=== PATIENT | female | born 1955 | race Hispanic/Latino ===

== ENCOUNTER 2018-12-02 16:13 | Inpatient (IN) | payer SELFPAY ==
[2018-12-02] MEDS ORDERED: NA CHLORIDE 0.9% 1,000 ML ONE (17:07)
[2018-12-02] MEDS ORDERED: ONDANSETRON 4 MG/2 ML VIAL ONE ×2 (17:07→17:53)
[2018-12-02] MEDS ORDERED: MEPERIDINE HCL 25 MG/0.5 ML ONE (17:07)
[2018-12-02 17:10] LABS: Basophils % 0.4 % (0-1.3); Hematocrit 44.3 % (36.0-45.0); Lymphocytes % 16.2 % (15.3-44.8); MPV 9.4 fL (7.6-11.3); RBC Red Blood Cell Count 5.11 M/uL (3.86-4.86)
[2018-12-02 17:26] LABS: Albumin 3.6 g/dL (3.4-5.0); Bilirubin Direct 0.3 mg/dL (0-0.2); Bilirubin Total 0.6 mg/dL (0.2-1.0); Protein, Total 8.8 g/dL (6.4-8.2)
--- NOTE | 2018-12-02 17:36 | RAD REPORT ---
EXAM DESCRIPTION: US - Abdomen Exam Limited - 12/02/2018 5:17 pm CLINICAL HISTORY: Abdominal pain COMPARISON: None. FINDINGS: Several small gallstones are clustered near the neck of the gallbladder. These appear to b e mobile stones. There is no wall thickening or pericholecystic fluid. No common duct stone or biliary tree dilatation identified. IMPRESSION: Multi stone cholelithiasis. No sonographic findings for acute cholecystitis.
[2018-12-02] MEDS ORDERED: CEFOXITIN/SWI 1gm 1 GM/10 ML SYR IVP ONE (17:45)
[2018-12-02] MEDS ORDERED: FENTANYL CITR 100 MCG/2 ML ONE (17:53)
[2018-12-02] MEDS ORDERED: METRONIDAZOLE 500mg IVPB 500 MG/100 ML BAG IV ONE (17:53)
[2018-12-02] MEDS ORDERED: CEFOXITIN/SWI 1gm 1 GM/10 ML SYR ONE (17:54)
--- NOTE | 2018-12-02 18:12 | EDPHYS ---
Physician Documentation [facility] Name: Danisha Dobbs Age: 63 yrs Sex: Female : 1955 Arrival Date: 12/02/2018 Time: 16:14 Bed 20 Private MD: ED Physician Jason Reddy HPI: 12/02 16:27 This 63 yrs old Female presents to ER via Ambulatory with complaints of jr8 Abdominal Pain, Back Pain, Vomiting. 16:27 The patient presents with abdominal pain in the epigastric area, in the right upper jr8 quadrant. Onset: The symptoms/episode began/occurred suddenly, 3 day(s) ago. The symptoms radiate to right back, the right shoulder. Associated signs and symptoms: Pertinent positives: nausea, vomiting, and diarrhea. The symptoms are described as stabbing. Modifying factors: The symptoms are alleviated by nothing, the symptoms are aggravated by food. Severity of pain: At its worst the pain was moderate in the emergency department the pain is unchanged. The patient has experienced similar episodes in the past, a few times. The patient has not recently seen a physician. Patient stated that she has been dealing with this for some time but has become much worse over the past few days . Historical: - Allergies: 16:17 Codeine; sv - Home Meds: 19:04 None [Active]; em - PMHx: 19:04 None; em - PSHx: 16:17 Appendectomy; right ovary removed; ; right arm surgery; left knee surgery; sv - Immunization history:: Adult Immunizations up to date. - Social history:: Smoking status: Patient uses tobacco products, denies chronic smoking, but will smoke occasionally. - Ebola Screening: : Patient negative for fever greater than or equal to 101.5 degrees Fahrenheit, and additional compatible Ebola Virus Disease symptoms Patient denies exposure to infectious person Patient denies travel to an Ebola-affected area in the 21 days before illness onset No symptoms or risks identified at this time. ROS: 16:27 Constitutional: Negative for fever, chills, and weight loss. jr8 16:27 Abdomen/GI: Positive for abdominal pain, nausea, vomiting, and diarrhea, Negative for abdominal distension, anorexia, dysphagia, hematemesis, black/tarry stool, rectal pain, rectal bleeding, bowel incontinence, flatulence. 16:27 All other systems are negative. Exam: 16:27 Eyes: Pupils equal round and reactive to light, extra-ocular motions intact. Lids and jr8 lashes normal. Conjunctiva and sclera are non-icteric and not injected. Cornea within normal limits. Periorbital areas with no swelling, redness, or edema. ENT: Nares patent. No nasal discharge, no septal abnormalities noted. Tympanic membranes are normal and external auditory canals are clear. Oropharynx with no redness, swelling, or masses, exudates, or evidence of obstruction, uvula midline. Mucous membranes moist. Neck: Trachea midline, no thyromegaly or masses palpated, and no cervical lymphadenopathy. Supple, full range of motion without nuchal rigidity, or vertebral point tenderness. No Meningismus. Cardiovascular: Regular rate and rhythm with a normal S1 and S2. No gallops, murmurs, or rubs. Normal PMI, no JVD. No pulse deficits. Respiratory: Lungs have equal breath sounds bilaterally, clear to auscultation and percussion. No rales, rhonchi or wheezes noted. No increased work of breathing, no retractions or nasal flaring. Back: No spinal tenderness. No costovertebral tenderness. Full range of motion. Skin: Warm, dry with normal turgor. Normal color with no rashes, no lesions, and no evidence of cellulitis. MS/ Extremity: Pulses equal, no cyanosis. Neurovascular intact. Full, normal range of motion. Neuro: Awake and alert, GCS 15, oriented to person, place, time, and situation. Cranial nerves II-XII grossly intact. Motor strength 5/5 in all extremities. Sensory grossly intact. Cerebellar exam normal. Normal gait. 16:27 Abdomen/GI: Inspection: obese Bowel sounds: active, all quadrants, Palpation: soft, in all quadrants, moderate abdominal tenderness, in the epigastric area and right upper quadrant, mass, is not appreciated, rebound tenderness, is not appreciated, voluntary guarding, is not appreciated, involuntary guarding, is not appreciated, no appreciated organomegaly, Indicators: McBurney's point is not tender, Willis's sign is positive, Rovsing's sign is negative, Liver: tenderness, is not appreciated. Vital Signs: 16:17 BP 91 / 61; Pulse 65; Resp 22; Temp 97.4; Pulse Ox 100% ; Weight 81.65 kg; Height 5 ft. sv 3 in. (160.02 cm); Pain 10/10; 16:45 BP 121 / 83; Pulse 62; Resp 20 S; Pulse Ox 100% on R/A; Pain 9/10; em 18:16 BP 123 / 62; Pulse 67; Resp 18 S; Pulse Ox 100% on R/A; Pain 7/10; em 19:19 BP 139 / 54; Pulse 53; Resp 18; Pulse Ox 99% on R/A; Pain 0/10; lc1 20:00 BP 127 / 58; Pulse 58; Resp 18; Pulse Ox 100% on R/A; lc1 16:17 Body Mass Index 31.89 (81.65 kg, 160.02 cm) sv MDM: 16:19 Patient medically screened. jr8 18:02 Data reviewed: vital signs, nurses notes, lab test result(s), radiologic studies, jr8 ultrasound. Data interpreted: Pulse oximetry: on room air is 100 %. Interpretation: normal. Counseling: I had a detailed discussion with the patient and/or guardian regarding: the historical points, exam findings, and any diagnostic results supporting the discharge/admit diagnosis, lab results, radiology results, the need for further work-up and treatment in the hospital. Physician consultation: Jeronimo Nova DO was called at 18:10, was contacted at 18:10, regarding admission, to the medical/surgical unit. consult, patient's condition, and will see patient. ED course: Dr. Rausch consulted and will see patient as consult. Ok with keeping patient here for MRCP since it is low likely gerber that patient has CBD obstruction. . 12/02 16:19 Order name: Basic Metabolic Panel; Complete Time: 17:27 12/02 16:19 Order name: CBC with Diff; Complete Time: 17:27 12/02 16:19 Order name: Creatinine for Radiology; Complete Time: 17:27 12/02 16:19 Order name: Hepatic Function; Complete Time: 17:27 12/02 16:19 Order name: Lipase; Complete Time: 17:12/02 19:20 Order name: Urine Dipstick--Ancillary (enter results) 2 12/02 16:27 Order name: US Abdomen Limited; Complete Time: 17:38 12/02 19:36 Order name: Urine Dipstick-Ancillary; Complete Time: 19:48 [facility] 12/02 16:19 Order name: IV Saline Lock; Complete Time: 17:13 [facility] 12/02 16:19 Order name: Labs collected and sent; Complete Time: 17:13 [facility] 12/02 16:19 Order name: Urine Dipstick-Ancillary (obtain specimen); Complete Time: 19:19 [facility] Administered Medications: 17:00 Drug: NS 0.9% 1000 ml Route: IV; Rate: 1000 ml; Site: right antecubital; ss 18:57 Follow up: IV Status: Completed infusion; IV Intake: 1000ml em 17:00 Drug: Zofran 4 mg Route: IVP; Site: right antecubital; ss 17:31 Follow up: Response: No adverse reaction; Nausea unchanged em 17:04 Drug: Demerol 25 mg Route: IVP; Site: right antecubital; ss 17:31 Follow up: Response: No adverse reaction; Pain is unchanged, physician notified em 17:06 Not Given (Other Intervention Used): Zofran 4 mg PO once ss 17:42 Drug: Zofran 4 mg Route: IVP; Site: right antecubital; em 18:18 Follow up: Response: No adverse reaction; Nausea is decreased em 17:44 Drug: fentaNYL (PF) 50 mcg Route: IVP; Site: right antecubital; ss 18:18 Follow up: Response: No adverse reaction; Pain is decreased em 17:46 Drug: Flagyl 500 mg Volume: 100 ml; Route: IVPB; Rate: 200 ml/hr; Infused Over: 30 em mins; Site: right antecubital; 18:57 Follow up: IV Status: Completed infusion; IV Intake: 200ml em 18:35 Drug: Mefoxin 1 grams {Note: given in 10 mL over 3 minutes per pharmacy protocol/ ss availability.} Route: IVPB; Infused Over: 30 mins; Site: right antecubital; 18:36 Follow up: IV Status: Completed infusion ss Disposition: 12/03 07:24 Co-signature as Attending Physician, Jason CHAVEZ I agree with the assessment and joanie plan of care. Disposition: 12/02/18 18:11 Hospitalization ordered by Jeronimo Nova for Observation. Preliminary diagnosis are Cholelithiasis, Choledocholithiasis . - Bed requested for Telemetry/MedSurg (observation). - Status is Observation. lc1 - Condition is Stable. - Problem is new. - Symptoms have improved. UTI on Admission? No Signatures: Dispatcher [employer] Rani Nick, RN RN Jason Antoine MD MD cha Munoz, Ilan, TAG WRITER TAG WRITER em Patrica Harrison RN RN ss Calhoun, Lisa lc1 Ankit Pepper, PA PA jr8 Krista Weaver RN RN cg Corrections: (The following items were deleted from the chart) 12/02 18:45 18:11 Hospitalization Ordered by [facility] for Inpatient Admission. Preliminary jr8 diagnosis is Cholelithiasis; Choledocholithiasis . Bed requested for Telemetry/MedSurg (Inpatient). Status is Inpatient Admission. Condition is Stable. Problem is new. Symptoms have improved. UTI on Admission? No. jr8 19:32 18:45 12/02/2018 18:11 Hospitalization Ordered by [facility] for Observation. cg Preliminary diagnosis is Cholelithiasis; Choledocholithiasis . Bed requested for Telemetry/MedSurg (observation). Status is Observation. Condition is Stable. Problem is new. Symptoms have improved. UTI on Admission? No. jr8 20:42 19:32 12/02/2018 18:11 Hospitalization Ordered by [facility] for Observation. lc1 Preliminary diagnosis is Cholelithiasis; Choledocholithiasis . Bed requested for Telemetry/MedSurg (observation). Status is Observation. Condition is Stable. Problem is new. Symptoms have improved. UTI on Admission? No. cg
--- NOTE | 2018-12-02 18:12 | ER ---
Nurse's Notes [facility] Name: Danisha Dobbs Age: 63 yrs Sex: Female : 1955 Arrival Date: 12/02/2018 Time: 16:14 Bed 20 Private MD: Diagnosis: Cholelithiasis;Choledocholithiasis Presentation: 12/02 16:15 Presenting complaint: Patient states: abd pain that radiates to the back, n/v started sv this morning. Transition of care: patient was not received from another setting of care. Onset of symptoms was December 02, 2018. Risk Assessment: Do you want to hurt yourself or someone else? Patient reports no desire to harm self or others. Care prior to arrival: None. 16:15 Method Of Arrival: Ambulatory sv 16:15 Acuity: KIRAN 3 sv 16:45 Initial Sepsis Screen: Does the patient meet any 2 criteria? No. Patient's initial em sepsis screen is negative. Does the patient have a suspected source of infection? No. Patient's initial sepsis screen is negative. Historical: - Allergies: 16:17 Codeine; sv - Home Meds: 19:04 None [Active]; em - PMHx: 19:04 None; em - PSHx: 16:17 Appendectomy; right ovary removed; ; right arm surgery; left knee surgery; sv - Immunization history:: Adult Immunizations up to date. - Social history:: Smoking status: Patient uses tobacco products, denies chronic smoking, but will smoke occasionally. - Ebola Screening: : Patient negative for fever greater than or equal to 101.5 degrees Fahrenheit, and additional compatible Ebola Virus Disease symptoms Patient denies exposure to infectious person Patient denies travel to an Ebola-affected area in the 21 days before illness onset No symptoms or risks identified at this time. Screenin:45 Abuse screen: Denies threats or abuse. em 16:45 Nutritional screening: No deficits noted. Tuberculosis screening: No symptoms or risk em factors identified. Fall Risk None identified. Assessment: 16:15 General: Appears in no apparent distress. uncomfortable, Behavior is cooperative, sv restless. Pain: Complains of pain in abdomen Pain radiates to back Pain currently is 10 out of 10 on a pain scale. Neuro: Level of Consciousness is awake, alert, obeys commands, Oriented to person, place, time, situation, Gait is steady. Respiratory: Respiratory effort is even, unlabored, Respiratory pattern is regular, symmetrical. GI: Reports diarrhea, nausea, vomiting. Derm: Skin is pink, warm \T\ dry. 16:45 General: Appears in no apparent distress. uncomfortable, Behavior is cooperative, em restless, Denies fever. Pain: Complains of pain in right upper quadrant and epigastric area Pain currently is 9 out of 10 on a pain scale. Neuro: Level of Consciousness is awake, alert, obeys commands, Oriented to person, place, time, situation. Cardiovascular: Denies chest pain, shortness of breath, Capillary refill < 3 seconds Patient's skin is warm and dry. Respiratory: Airway is patent Respiratory effort is even, unlabored, Respiratory pattern is regular, symmetrical. GI: Abdomen is flat, Bowel sounds present X 4 quads. Abd is soft X 4 quads Abdomen is tender to palpation in epigastric area, right upper quadrant and left upper quadrant Reports diarrhea, nausea, vomiting. : Reports burning with urination, urinary frequency. Derm: Skin is intact, is healthy with good turgor, Skin is pink, warm \T\ dry. Musculoskeletal: Capillary refill < 3 seconds, Range of motion: intact in all extremities. 17:30 Reassessment: reports medication has not helped with symptoms, provider notified, new em medication orders received. 18:20 Reassessment: Patient appears in no apparent distress at this time. Patient and/or em family updated on plan of care and expected duration. Pain level reassessed. Patient is alert, oriented x 3, equal unlabored respirations, skin warm/dry/pink. rates pain 7/10, appears comfortable, family at bedside Patient states feeling better. 18:41 Reassessment: Dr. Nova at bedside discussing POC. em 18:55 Reassessment: pt ambulated to restroom with steady gait, obtained UA specimen. em 19:22 Reassessment: Patient and/or family updated on plan of care and expected duration. Pain lc1 level reassessed. Patient states feeling better. Vital Signs: 16:17 BP 91 / 61; Pulse 65; Resp 22; Temp 97.4; Pulse Ox 100% ; Weight 81.65 kg; Height 5 ft. sv 3 in. (160.02 cm); Pain 10/10; 16:45 BP 121 / 83; Pulse 62; Resp 20 S; Pulse Ox 100% on R/A; Pain 9/10; em 18:16 BP 123 / 62; Pulse 67; Resp 18 S; Pulse Ox 100% on R/A; Pain 7/10; em 19:19 BP 139 / 54; Pulse 53; Resp 18; Pulse Ox 99% on R/A; Pain 0/10; lc1 20:00 BP 127 / 58; Pulse 58; Resp 18; Pulse Ox 100% on R/A; lc1 16:17 Body Mass Index 31.89 (81.65 kg, 160.02 cm) sv ED Course: 16:14 Patient arrived in ED. as 16:16 Triage completed. sv 16:18 Arm band placed on Patient placed in an exam room, on a stretcher. sv 16:19 Ankit Pepper PA is PHCP. jr8 16:19 Jason Reddy MD is Attending Physician. jr8 16:45 Patient has correct armband on for positive identification. Placed in gown. Bed in low em position. Call light in reach. Adult w/ patient. Pulse ox on. NIBP on. 16:49 Ilan Mariee LVN is Primary Nurse. em 17:15 Ultrasound completed. Patient tolerated well. sg3 17:18 US Abdomen Limited In Process Unspecified. EDMS 18:11 Jeronimo Nova DO is Hospitalizing Provider. jr8 19:18 Resting quietly. Awaiting bed assignment. lc1 19:21 Inserted saline lock: 20 gauge in right antecubital area, using aseptic technique. lc1 19:51 No provider procedures requiring assistance completed. Patient admitted, IV remains in lc1 place. 20:06 Urine Dipstick--Ancillary (enter results) Sent. lc1 Administered Medications: 17:00 Drug: NS 0.9% 1000 ml Route: IV; Rate: 1000 ml; Site: right antecubital; ss 18:57 Follow up: IV Status: Completed infusion; IV Intake: 1000ml em 17:00 Drug: Zofran 4 mg Route: IVP; Site: right antecubital; ss 17:31 Follow up: Response: No adverse reaction; Nausea unchanged em 17:04 Drug: Demerol 25 mg Route: IVP; Site: right antecubital; ss 17:31 Follow up: Response: No adverse reaction; Pain is unchanged, physician notified em 17:06 Not Given (Other Intervention Used): Zofran 4 mg PO once ss 17:42 Drug: Zofran 4 mg Route: IVP; Site: right antecubital; em 18:18 Follow up: Response: No adverse reaction; Nausea is decreased em 17:44 Drug: fentaNYL (PF) 50 mcg Route: IVP; Site: right antecubital; ss 18:18 Follow up: Response: No adverse reaction; Pain is decreased em 17:46 Drug: Flagyl 500 mg Volume: 100 ml; Route: IVPB; Rate: 200 ml/hr; Infused Over: 30 em mins; Site: right antecubital; 18:57 Follow up: IV Status: Completed infusion; IV Intake: 200ml em 18:35 Drug: Mefoxin 1 grams {Note: given in 10 mL over 3 minutes per pharmacy protocol/ ss availability.} Route: IVPB; Infused Over: 30 mins; Site: right antecubital; 18:36 Follow up: IV Status: Completed infusion ss Intake: 18:57 IV: 200ml; Total: 200ml. em 18:57 IV: 1000ml; Total: 1200ml. em Outcome: 18:11 Decision to Hospitalize by Provider. [facility] 19:52 Condition: good [facility] 20:03 Instructed on the need for admit. [facility] 20:36 Admitted to Med/surg accompanied by nurse, via wheelchair, room 213, Report called to [facility] Carla Jean 20:42 Patient left the ED. [facility] Signatures: Dispatcher [employer] Rani Nick, RN TABATHA Ilan Mariee, MORTGAGE ADVISOR MORTGAGE ADVISOR em Devora Rausch [place], RN RN Perla Boyce [facility] Ankit Pepper PA PA jr8 Haley Robledo sg3 Corrections: (The following items were deleted from the chart) 16:19 16:17 Pulse 65bpm; Resp 22bpm; Pulse Ox 100%; Temp 97.4F; 81.65 kg; Height 5 ft. 3 in.; sv BMI: 31.8; Pain 10/10; sv 20:05 19:51 Admitted to Med/surg [place] [id number]
--- NOTE | 2018-12-02 19:03 | P.HP ---
Certification for Inpatient Patient admitted to: Observation With expected LOS: <2 Midnights Patient will require the following post-hospital care: None Practitioner: I am a practitioner with admitting privileges, knowledge of patient current condition, hospital course, and medical plan of care. Services: Services provided to patient in accordance with Admission requirements found in Title 42 Section 412.3 of the Code of Federal Regulations Patient History Date of Service: 12/02/18 Primary Care Provider: None Reason for admission: Right upper quadrant abdominal pain History of Present Illness: 63-year-old female presented to the emergency room with increasing right upper quadrant abdominal pain. Patient reports right upper quadrant pain for several months. She thought this was GERD related. She has been taking over the counter medication without relief. Today she had more pain to the right upper quadrant. He was severe. It was associated with some nausea. She denied any fever, chills, shortness of breath or chest pain. She came to the ER for further evaluation. In the ER she was evaluated. White count elevated at 12.3, hemoglobin 14.6. Platelet count of 335. Sodium 140, potassium 4.0. BUN of 14, creatinine 0.84 with a GFR 65. Glucose 111. Total bilirubin within normal range. Lipase within normal range. AST slightly elevated at 99. ALT normal at 49. Abdominal ultrasound showed gallbladder with multiple stones. No common bile duct stone or common bile duct dilation. Patient was admitted for further evaluation and treatment. ER provider spoke with surgery who agrees with plan. When I saw the patient ER, pain seems to be better controlled. Patient stable this time. Home medications list reviewed: Yes - Past Medical/Surgical History Diabetic: No Past Medical History: Patient denies medical history -: Appendectomy with right oophorectomy -: Left knee surgery -: Right shoulder surgery -: Ectopic Psychosocial/ Personal History: Patient . Lives at home. - Family History Family History: Reviewed- Non-Contributory - Social History Smoking Status: Never smoker Alcohol use: No CD- Drugs: No Caffeine use: Yes Place of Residence: Home Review of Systems General: As per HPI Eyes: Unremarkable ENT: Unremarkable Respiratory: Unremarkable Cardiovascular: Unremarkable Gastrointestinal: Nausea, Vomiting, Abdominal Pain, As per HPI Genitourinary: Unremarkable Musculoskeletal: Unremarkable Integumentary: Unremarkable Neurological: Unremarkable Lymphatics: Unremarkable Physical Examination - Physical Exam General: Alert, In no apparent distress, Oriented x3, Cooperative HEENT: Atraumatic, Normocephalic, PERRLA, Mucous membr. moist/pink Neck: Supple, No Thyromegaly Respiratory: Clear to auscultation bilaterally, Normal air movement Cardiovascular: Normal pulses, Regular rate/rhythm Gastrointestinal: Normal bowel sounds, Soft and benign, Non-distended, No masses , No rebound, No guarding, Tenderness (Minimal pain to the right upper quadrant) Musculoskeletal: No erythema, No tenderness, No warmth Integumentary: No tenderness/swelling, No erythema, No warmth, No cyanosis Neurological: Normal speech, Normal strength at 5/5 x4 extr, Normal tone, Normal affect - Studies Laboratory Data (last 24 hrs) 12/02/18 16:55: Creatinine 0.84 12/02/18 16:55: WBC 12.3 H, Hgb 14.6, Hct 44.3, Plt Count 335 12/02/18 16:55: Sodium 140, Potassium 4.0, BUN 14, Creatinine 0.88, Glucose 111 H, Total Bilirubin 0.6, AST 99 H, ALT 49, Alkaline Phosphatase 133 H, Lipase 194 Assessment and Plan - Plan Impression: Acute on chronic cholecystitis with cholelithiasis Plan: Patient will be admitted for further evaluation and treatment. ER provider discussed case with surgery. Will continue with IV fluids, antibiotics-Cipro and Flagyl. Total bilirubin within normal range. AST slightly elevated at 99. Abdominal ultrasound showed multiple stones within the gallbladder. Common bile duct not dilated. No stone identified to common bile duct. Will obtain MRCP to rule out choledocholithiasis. If MRCP unremarkable, surgical intervention will be planned. If MRCP positive then transfer to higher level care center for ERCP will be arranged. Will keep the patient NPO at this time. Will continue with Lovenox for DVT prophylaxis. Will provide medication for nausea and pain. Discharge Plan: Home Plan to discharge in: 48 Hours - Advance Directives Does patient have a Living Will: No Does patient have a Durable POA for Healthcare: No - Code Status/Comfort Care Code Status Assessed: Yes (Patient is full code) Time Spent Managing Pts Care (In Minutes): 55
[2018-12-02 19:34] LABS: Urine Blood TRACE (NEG); Urine Glucose NEGATIVE (NEG); Urine Protein NEGATIVE (NEG); Urine Specific Gravity 1.015 (1.005-1.030); Urine pH 8.5 (5.0-7.0)
[2018-12-02] MEDS ORDERED: ACETAMINOPHEN 650MG/RECT SUPP RECT PRN (20:20)
[2018-12-02] MEDS ORDERED: ACETAMINOPHEN 500 MG TAB PO PRN (20:20)
[2018-12-02] MEDS: NA CHLORIDE 0.9% 1,000 ML IV SCH (20:56)
[2018-12-02] MEDS: CIPROFLOXACIN 400mg IV 400 MG/200 ML BAG IV SCH (20:57)
[2018-12-02] MEDS: FAMOTIDINE 20 MG/2 ML VIAL IV SCH (20:57)
[2018-12-02] MEDS: ONDANSETRON 4 MG/2 ML VIAL IV PRN (20:57)
[2018-12-02 20:59] LABS: Urine Appearance CLEAR; Urine Bilirubin NEGATIVE (NEG); Urine Blood TRACE (NEG); Urine Color YELLOW; Urine Glucose NEGATIVE (NEG); Urine Protein NEGATIVE (NEG); Urine Specific Gravity 1.015 (1.005-1.030); Urine Urobilinogen 0.2 mg/dL (0.2-1.0)
[2018-12-02 21:04] LABS: Urine Microscopic Reflex ORDER UMIC
[2018-12-02] MEDS: MORPHINE 2 MG/ML SYR IV PRN (21:19)
[2018-12-02 21:21] LABS: Urine Bacteria <20 /HPF (<20); Urine Culture Reflex Order NOT NEEDED
[2018-12-03] MEDS: METRONIDAZOLE 500mg IVPB 500 MG/100 ML BAG IV SCH ×3 (00:46→17:24)
[2018-12-03 06:34] LABS: Basophils % 0.4 % (0-1.3); Hematocrit 39.8 % (36.0-45.0); Lymphocytes % 11.7 % (15.3-44.8); MPV 9.2 fL (7.6-11.3); RBC Red Blood Cell Count 4.57 M/uL (3.86-4.86)
[2018-12-03 07:04] LABS: Albumin 3.1 g/dL (3.4-5.0); Bilirubin Total 1.4 mg/dL (0.2-1.0); Magnesium 2.2 mg/dL (1.8-2.4); Potassium 4.4 mmol/L (3.5-5.1); Protein, Total 7.5 g/dL (6.4-8.2)
[2018-12-03] MEDS: MORPHINE 2 MG/ML SYR IV PRN ×3 (08:08→17:24)
[2018-12-03] MEDS: FAMOTIDINE 20 MG/2 ML VIAL IV SCH ×2 (08:08→20:00)
[2018-12-03] MEDS: ONDANSETRON 4 MG/2 ML VIAL IV PRN ×3 (08:08→19:51)
[2018-12-03] MEDS: CIPROFLOXACIN 400mg IV 400 MG/200 ML BAG IV SCH ×2 (08:09→20:00)
--- NOTE | 2018-12-03 08:31 | RAD REPORT ---
EXAM DESCRIPTION: MRI - Cholangiogram - 12/03/2018 7:38 am CLINICAL HISTORY: Abdominal pain, epigastric pain, cholelithiasis COMPARISON: Gallbladder ultrasound December 02 TECHNIQUE: Axial and coronal heavily T2 weighted sequences were obtained. Coronal T2 HASTE fat satur ation static and coronal multiplane reconstruction imaging generated and reviewed. Horizontal and bhavana tical axis rotational views obtained using maximum intensity projection (MIP) protocol. FINDINGS: Well filled gallbladder is seen. The known gallstones are identified layering in the depen dent portion of the gallbladder. No pericholecystic fluid or edema seen. Wall does not appear thicken ed or edematous. Pancreatic duct is well visualized. No pancreatic duct stone stricture or mass. No intrahepatic biliary tree dilatation. Extrahepatic biliary tree is 8- 9 mm which is slightly enlar ged. No stricture or mass identified. There is smooth tapering into the head of the pancreas near the sphincter. On 1 of the sequences there is a questionable 2 millimeter filling defect near the sphinc ter. This is not supported on other sequences. This is potentially a crossing vessel or volume averag ing with the mucosal folds of the duodenum. Correlation is needed with any clinical or laboratory fin dings for biliary tree obstruction IMPRESSION: Extrahepatic biliary tree is minimally dilated at 8-9 mm with no intrinsic stricture or mass. There is a questionable 2 millimeter duct stone near the ampulla. This is seen on only 1 of the seque nces. Correlation is needed with any clinical or laboratory findings for biliary obstruction.
[2018-12-03] MEDS ORDERED: ENOXAPARIN 40 MG/0.4 ML SQ SCH (09:00)
[2018-12-03] MEDS: NA CHLORIDE 0.9% 1,000 ML IV SCH ×2 (13:09→16:20)
--- NOTE | 2018-12-03 13:16 | DS ---
Date of Service: 12/03/2018 Consultants: Dr. Rausch with General Surgery. Procedures: None. Discharge Diagnoses: 1. Lgskx-xb-kulfglc cholecystitis with cholelithiasis. 2. Obesity. BMI 31. 3. Hyperbilirubinemia. 4. Elevated liver enzymes. 5. Choledocholithiasis. Hospital Course: Patient is a 63-year-old female with no significant past medical history other than obesity and chronic cholelithiasis who comes in with abdominal pain. Patient had elevated white count with neutrophilia. Her total bilirubin was normal. Liver enzymes were minimally elevated with AST at 99. Abdominal ultrasound showed cholelithiasis. No sonographic evidence for her acute cholecystitis. There is no common duct stone or biliary tree dilatation identified. The patient was kept n.p.o., started on IV fluids. Dr. Rausch with Surgery was consulted. She was started on IV antibiotics as well. MRCP was done to rule out stone. MRCP was positive for stone near the ampulla. No GI coverage was available. Therefore, the patient will need to be transferred for an ERCP. The patient will continue to be n.p.o. She did have improvement in her symptoms. Her white blood cell count normalized, however, her total bilirubin and liver enzymes have become further elevated. The patient was then referred to [facility] for transfer. Total time spent transferring the patient was 43 minutes. Physical Examination: General: Awake, alert, oriented x3. Obese female in mild distress. CV: S1, S2. No murmurs. Respiratory: Moving air well bilaterally. No wheezing. Gastrointestinal: Abdomen is soft, nontender, nondistended. Positive bowel sounds. Extremities: No clubbing, cyanosis, or edema. Neurologic: Nonfocal. SA/MODL Voice ID: [id number] Report ID: [id number] [facility]Kim
[2018-12-04] MEDS: METRONIDAZOLE 500mg IVPB 500 MG/100 ML BAG IV SCH (00:08)
[2018-12-04] MEDS: MORPHINE 2 MG/ML SYR IV PRN (01:29)
[2018-12-04] MEDS: ONDANSETRON 4 MG/2 ML VIAL IV PRN (01:29)
[2018-12-04] MEDS: NA CHLORIDE 0.9% 1,000 ML IV SCH (02:56)
== END 2018-12-04 04:40 | disposition short-term general hospital (02) | DRG 446 ==
LOC: ER 16:13 → ERHOLD 18:51 → 2ND 20:05 → OBSVTOIN 12-03 11:34
PROVIDERS: ADMIT Family Medicine; ATTEND Family Medicine
DX: K80.46 Calculus of bile duct with acute and chronic cholecystitis without obstruction (principal); F17.210 Nicotine dependence, cigarettes, uncomplicated; Z88.5 Allergy status to narcotic agent; E66.9 Obesity, unspecified; Z68.31 Body mass index [BMI] 31.0-31.9, adult
CPT/HCPCS: 36415; 74181; 76705; 80048; 80053; 80076; 81003; 81015; 82962; 83690; 83735; 85025; 96361; 96365; 96375; 99285; G0378; J0744; J1650; J2175; J2270; J2405; J3010; J7030

== ENCOUNTER 2019-06-01 15:02 | Emergency (ER) | payer SELFPAY ==
--- OUTSIDE RECORDS SUMMARY | 2019-06-01 15:04 | XMS REPORT ---
:1955 Author Organization [facility] Address [address] [place] [address] Care Team Providers Name Role Phone SONY REES Unavailable Unavailable Problems This patient has no known problems. Allergies, Adverse Reactions, Alerts This patient has no known allergies or adverse reactions. Medications This patient has no known medications. Results Test Description Test Time Test Comments Text Results Atomic Results Result Comments TISSUE EXAM 2018-12-10 09:23:00 Surgical Pathology Report Case: [id number] Authorizing Provider: Kristi Caballero MD Collected: 12/06/2018 1605 Ordering Location: [facility] PERIOPERATIVE Received: 12/07/2018 0848 SERVICES Pathologist: Seferino Louis MD Specimen: Gallbladder A. GALLBLADDER, CHOLECYSTECTOMY: - CHRONIC CHOLECYSTITIS WITH CHOLELITHIASIS - NEGATIVE FOR DYSPLASIA OR MALIGNANCY Signing Pathologist Direct Phone Line: [phone] signed by Seferino Louis MD on 12/10/2018 at 9:23 [id number] and postop diagnosis: choledocholithiasisGallbladderReceived fresh labeled with the patient's name, accession number and "gallbladder" is an intact gallbladder within a laparoscopic bag measuring 6.6 x 3 x 1.5 cm. The cystic duct is clipped. The serosa is lavender-pink and smooth. The hepatic bed is inked blue, the specimen is opened to reveal multiple (greater than 20) yellow irregular choleliths ranging 0.2-0.4 cm. The mucosa is brooke-pink, trabeculated and displays cholesterolosis. A cystic duct lymph node is not present. The wall thickness is 0.1 cm. No gross lesions are identified. Technology Administrator sections are submitted. Section code: A1, cystic duct margin en face; A2, gallbladder wall. CG/pl Performed. HEPATIC FUNCTION PANEL 2018-12-07 06:05:00 Test Item Value Reference Range Comments TOTAL PROTEIN (BEAKER) (test dhpe=288) 8.0 gm/dL 6.0-8.3 ALBUMIN (BEAKER) (test ejuo=8975) 3.6 g/dL 3.5-5.0 BILIRUBIN TOTAL (BEAKER) (test tqcl=080) 0.7 mg/dL 0.2-1.2 BILIRUBIN DIRECT (BEAKER) (test mmqo=382) 0.4 mg/dL 0.1-0.5 ALKALINE PHOSPHATASE (BEAKER) (test qtvu=402) 176 U/L 40-150 AST (SGOT) (BEAKER) (test dqbb=989) 41 U/L 5-34 ALT (SGPT) (BEAKER) (test rbtj=660) 88 U/L 6-55 BASIC METABOLIC [id number] 06:05:00 Test Item Value Reference Range Comments SODIUM (BEAKER) (test 138 meq/L 136-145 wdmb=296) POTASSIUM (BEAKER) (test 3.7 meq/L 3.5-5.1 nfzu=872) CHLORIDE (BEAKER) (test 104 meq/L 98-107 dldo=193) CO2 (BEAKER) (test 23 meq/L 22-29 alop=970) BLOOD UREA NITROGEN 9 mg/dL 7-21 (BEAKER) (test zenl=740) CREATININE (BEAKER) (test 0.74 mg/dL 0.57-1.25 kyyt=540) GLUCOSE RANDOM (BEAKER) 105 mg/dL 70-105 (test yqgw=165) CALCIUM (BEAKER) (test 8.3 mg/dL 8.4-10.2 vukj=318) EGFR (BEAKER) (test 80 mL/min/1.73 sq m ESTIMATED GFR IS NOT yztg=3679) ACCURATE CREATININE CLEARANCE IN PREDICTING GLOMERULAR FILTRATION RATE. ESTIMATED GFR IS NOT APPLICABLE FOR DIALYSIS PATIENTS. CBC W/PLT COUNT & AUTO [id number] 05:28:00 Test Item Value Reference Range Comments WHITE BLOOD CELL COUNT (BEAKER) (test hqtm=735) 16.6 K/ L 3.5-10.5 RED BLOOD CELL COUNT (BEAKER) (test djkz=027) 4.71 M/ L 3.93-5.22 HEMOGLOBIN (BEAKER) (test kalx=917) 13.7 GM/DL 11.2-15.7 HEMATOCRIT (BEAKER) (test qamy=366) 43.1 % 34.1-44.9 MEAN CORPUSCULAR VOLUME (BEAKER) (test jncq=325) 91.5 fL 79.4-94.8 MEAN CORPUSCULAR HEMOGLOBIN (BEAKER) (test 29.1 pg 25.6-32.2 quhn=586) MEAN CORPUSCULAR HEMOGLOBIN CONC (BEAKER) (test 31.8 GM/DL 32.2-35.5 okvj=231) RED CELL DISTRIBUTION WIDTH (BEAKER) (test 14.7 % 11.7-14.4 fxrq=859) PLATELET COUNT (BEAKER) (test sexw=229) 348 K/CU MM 150-450 MEAN PLATELET VOLUME (BEAKER) (test olge=773) 10.6 fL 9.4-12.3 NUCLEATED RED BLOOD CELLS (BEAKER) (test 0 /100 WBC 0-0 qbvh=744) NEUTROPHILS RELATIVE PERCENT (BEAKER) (test 86 % ltni=899) LYMPHOCYTES RELATIVE PERCENT (BEAKER) (test 8 % pkpb=807) MONOCYTES RELATIVE PERCENT (BEAKER) (test 5 % rdhx=649) EOSINOPHILS RELATIVE PERCENT (BEAKER) (test 0 % goqz=067) BASOPHILS RELATIVE PERCENT (BEAKER) (test 0 % rwpo=303) NEUTROPHILS ABSOLUTE COUNT (BEAKER) (test 14.26 K/ L 1.56-6.13 jkga=620) LYMPHOCYTES ABSOLUTE COUNT (BEAKER) (test 1.35 K/ L 1.18-3.74 xjia=672) MONOCYTES ABSOLUTE COUNT (BEAKER) (test 0.90 K/ L 0.24-0.36 nuqg=029) EOSINOPHILS ABSOLUTE COUNT (BEAKER) (test 0.01 K/ L 0.04-0.36 qflt=931) BASOPHILS ABSOLUTE COUNT (BEAKER) (test 0.03 K/ L 0.01-0.08 ytwj=595) IMMATURE GRANULOCYTES-RELATIVE PERCENT (BEAKER) 1 % 0-1 (test tpms=5338) HEPATIC FUNCTION [id number] 09:17:00 Test Item Value Reference Range Comments TOTAL PROTEIN (BEAKER) (test xlvk=693) 7.9 gm/dL 6.0-8.3 ALBUMIN (BEAKER) (test fmkx=9883) 3.7 g/dL 3.5-5.0 BILIRUBIN TOTAL (BEAKER) (test zdtd=458) 0.8 mg/dL 0.2-1.2 BILIRUBIN DIRECT (BEAKER) (test prkf=806) 0.5 mg/dL 0.1-0.5 ALKALINE PHOSPHATASE (BEAKER) (test mtnv=978) 211 U/L 40-150 AST (SGOT) (BEAKER) (test xqei=299) 37 U/L 5-34 ALT (SGPT) (BEAKER) (test cmto=076) 122 U/L 6-55 BASIC METABOLIC [id number] 07:39:00 Test Item Value Reference Range Comments SODIUM (BEAKER) (test 138 meq/L 136-145 refq=526) POTASSIUM (BEAKER) (test 4.2 meq/L 3.5-5.1 ukti=014) CHLORIDE (BEAKER) (test 104 meq/L 98-107 pnrl=246) CO2 (BEAKER) (test 29 meq/L 22-29 pdpd=581) BLOOD UREA NITROGEN 13 mg/dL 7-21 (BEAKER) (test wgnx=727) CREATININE (BEAKER) (test 0.78 mg/dL 0.57-1.25 afbs=252) GLUCOSE RANDOM (BEAKER) 81 mg/dL 70-105 (test yqma=087) CALCIUM (BEAKER) (test 9.1 mg/dL 8.4-10.2 nwew=899) EGFR (BEAKER) (test 75 mL/min/1.73 sq m ESTIMATED GFR IS NOT atro=6911) ACCURATE CREATININE CLEARANCE IN PREDICTING GLOMERULAR FILTRATION RATE. ESTIMATED GFR IS NOT APPLICABLE FOR DIALYSIS PATIENTS. PROTHROMBIN [id number] 06:55:00 Test Item Value Reference Range Comments PROTIME (BEAKER) (test npra=721) 13.1 seconds 11.9-14.2 INR (BEAKER) (test ecdf=615) 1.0 <=5.9 Effective 10/03/2018: PT Reference Range ChangeNew: 11.9-14.2 Previous: 11.7- 14.7RECOMMENDED COUMADIN/WARFARIN INR THERAPY RANGESSTANDARD DOSE: 2.0-3.0 Includes: PROPHYLAXIS for venous thrombosis, systemic embolization; TREATMENT for venous thrombosis and/or pulmonary embolus.HIGH RISK: Target INR is2.5-3.5 for patients wiht mechanical heart valves.CBC W/PLT COUNT & AUTO [id number] 06:50:00 Test Item Value Reference Range Comments WHITE BLOOD CELL COUNT (BEAKER) (test uaaw=752) 7.0 K/ L 3.5-10.5 RED BLOOD CELL COUNT (BEAKER) (test iovt=848) 4.84 M/ L 3.93-5.22 HEMOGLOBIN (BEAKER) (test oxlf=154) 13.8 GM/DL 11.2-15.7 HEMATOCRIT (BEAKER) (test azwt=712) 43.9 % 34.1-44.9 MEAN CORPUSCULAR VOLUME (BEAKER) (test kygv=138) 90.7 fL 79.4-94.8 MEAN CORPUSCULAR HEMOGLOBIN (BEAKER) (test 28.5 pg 25.6-32.2 xnwb=795) MEAN CORPUSCULAR HEMOGLOBIN CONC (BEAKER) (test 31.4 GM/DL 32.2-35.5 ioty=763) RED CELL DISTRIBUTION WIDTH (BEAKER) (test 14.4 % 11.7-14.4 qpyh=699) PLATELET COUNT (BEAKER) (test eevp=568) 353 K/CU MM 150-450 MEAN PLATELET VOLUME (BEAKER) (test jsca=357) 10.7 fL 9.4-12.3 NUCLEATED RED BLOOD CELLS (BEAKER) (test 0 /100 WBC 0-0 fqxp=159) NEUTROPHILS RELATIVE PERCENT (BEAKER) (test 50 % ardf=996) LYMPHOCYTES RELATIVE PERCENT (BEAKER) (test 38 % pejx=903) MONOCYTES RELATIVE PERCENT (BEAKER) (test 9 % rozk=119) EOSINOPHILS RELATIVE PERCENT (BEAKER) (test 2 % dlqe=581) BASOPHILS RELATIVE PERCENT (BEAKER) (test 1 % ajjs=198) NEUTROPHILS ABSOLUTE COUNT (BEAKER) (test 3.48 K/ L 1.56-6.13 xaeq=158) LYMPHOCYTES ABSOLUTE COUNT (BEAKER) (test 2.68 K/ L 1.18-3.74 objc=222) MONOCYTES ABSOLUTE COUNT (BEAKER) (test 0.62 K/ L 0.24-0.36 kvll=768) EOSINOPHILS ABSOLUTE COUNT (BEAKER) (test 0.16 K/ L 0.04-0.36 iude=830) BASOPHILS ABSOLUTE COUNT (BEAKER) (test 0.04 K/ L 0.01-0.08 iauv=677) IMMATURE GRANULOCYTES-RELATIVE PERCENT (BEAKER) 0 % 0-1 (test jres=6899) HEPATIC FUNCTION [id number] 05:13:00 Test Item Value Reference Range Comments TOTAL PROTEIN (BEAKER) (test njni=323) 7.5 gm/dL 6.0-8.3 ALBUMIN (BEAKER) (test jjgu=4249) 3.5 g/dL 3.5-5.0 BILIRUBIN TOTAL (BEAKER) (test gnzd=419) 1.2 mg/dL 0.2-1.2 BILIRUBIN DIRECT (BEAKER) (test fasz=054) 0.8 mg/dL 0.1-0.5 ALKALINE PHOSPHATASE (BEAKER) (test kauz=966) 239 U/L 40-150 AST (SGOT) (BEAKER) (test pnuw=956) 89 U/L 5-34 ALT (SGPT) (BEAKER) (test kzpj=440) 180 U/L 6-55 BASIC METABOLIC [id number] 05:13:00 Test Item Value Reference Range Comments SODIUM (BEAKER) (test 137 meq/L 136-145 opsd=394) POTASSIUM (BEAKER) (test 3.6 meq/L 3.5-5.1 xinu=678) CHLORIDE (BEAKER) (test 106 meq/L 98-107 vrir=852) CO2 (BEAKER) (test 22 meq/L 22-29 gsmn=806) BLOOD UREA NITROGEN 18 mg/dL 7-21 (BEAKER) (test mhjl=036) CREATININE (BEAKER) (test 0.74 mg/dL 0.57-1.25 lbfg=068) GLUCOSE RANDOM (BEAKER) 70 mg/dL 70-105 (test qyya=027) CALCIUM (BEAKER) (test 8.8 mg/dL 8.4-10.2 grlx=760) EGFR (BEAKER) (test 80 mL/min/1.73 sq m ESTIMATED GFR IS NOT rouh=1215) ACCURATE CREATININE CLEARANCE IN PREDICTING GLOMERULAR FILTRATION RATE. ESTIMATED GFR IS NOT APPLICABLE FOR DIALYSIS PATIENTS. PROTHROMBIN [id number] 04:54:00 Test Item Value Reference Range Comments PROTIME (BEAKER) (test czng=364) 16.3 seconds 11.9-14.2 INR (BEAKER) (test irvm=042) 1.4 <=5.9 Effective 10/03/2018: PT Reference Range ChangeNew: 11.9-14.2 Previous: 11.7- 14.7RECOMMENDED COUMADIN/WARFARIN INR THERAPY RANGESSTANDARD DOSE: 2.0-3.0 Includes: PROPHYLAXIS for venous thrombosis, systemic embolization; TREATMENT for venous thrombosis and/or pulmonary embolus.HIGH RISK: Target INR is2.5-3.5 for patients wiht mechanical heart valves.CBC W/PLT COUNT & AUTO [id number] 04:46:00 Test Item Value Reference Range Comments WHITE BLOOD CELL COUNT (BEAKER) (test mbpw=119) 8.4 K/ L 3.5-10.5 RED BLOOD CELL COUNT (BEAKER) (test naji=429) 4.78 M/ L 3.93-5.22 HEMOGLOBIN (BEAKER) (test tfrk=162) 13.7 GM/DL 11.2-15.7 HEMATOCRIT (BEAKER) (test alcs=290) 43.1 % 34.1-44.9 MEAN CORPUSCULAR VOLUME (BEAKER) (test tokd=738) 90.2 fL 79.4-94.8 MEAN CORPUSCULAR HEMOGLOBIN (BEAKER) (test 28.7 pg 25.6-32.2 zwsb=908) MEAN CORPUSCULAR HEMOGLOBIN CONC (BEAKER) (test 31.8 GM/DL 32.2-35.5 rrsb=087) RED CELL DISTRIBUTION WIDTH (BEAKER) (test 14.0 % 11.7-14.4 bywn=409) PLATELET COUNT (BEAKER) (test znvr=254) 260 K/CU MM 150-450 MEAN PLATELET VOLUME (BEAKER) (test pmvc=115) 11.3 fL 9.4-12.3 NUCLEATED RED BLOOD CELLS (BEAKER) (test 0 /100 WBC 0-0 xtum=055) NEUTROPHILS RELATIVE PERCENT (BEAKER) (test 65 % tewu=980) LYMPHOCYTES RELATIVE PERCENT (BEAKER) (test 24 % paza=402) MONOCYTES RELATIVE PERCENT (BEAKER) (test 8 % hcsh=945) EOSINOPHILS RELATIVE PERCENT (BEAKER) (test 1 % llrv=363) BASOPHILS RELATIVE PERCENT (BEAKER) (test 1 % pclz=143) NEUTROPHILS ABSOLUTE COUNT (BEAKER) (test 5.48 K/ L 1.56-6.13 moad=855) LYMPHOCYTES ABSOLUTE COUNT (BEAKER) (test 2.04 K/ L 1.18-3.74 nsvl=086) MONOCYTES ABSOLUTE COUNT (BEAKER) (test 0.70 K/ L 0.24-0.36 mmqp=740) EOSINOPHILS ABSOLUTE COUNT (BEAKER) (test 0.10 K/ L 0.04-0.36 nxoj=534) BASOPHILS ABSOLUTE COUNT (BEAKER) (test 0.05 K/ L 0.01-0.08 rlab=242) IMMATURE GRANULOCYTES-RELATIVE PERCENT (BEAKER) 0 % 0-1 (test qojg=6075) UT, [id number] 19:40:00Reason for exam:->bile duct obstruction, in support of ERCPFINAL REPORT Fluoroscopic images were acquired for procedural assistance. Fluoroscopy time 1.0 minutes. Fluoroscopic images 3. Fluoroscopic assistance was used during endoscopic retrograde cholangiogram. The radiologist was not present during the procedure and the fluoroscopic images are not submitted for interpretation by the radiologist. For clinical details and image interpretation, see separate report by the physician who performed the procedure. Signed: Brendan Trujillo MDReport Verified Date/Time: 12/04/2018 19:40:22 Reading Location: [address] Consult Reading Room Electronically signed by: BRENDAN TRUJILLO M.D. on 2018 07:40 PMMR, ABDOMEN, [id number] 15:18:00FINAL REPORT TECHNIQUE: MRI of the abdomen and MRCP WITHOUT intravenous contrast. 3- D volume reconstructions were obtained to evaluate the biliary ductal system. INDICATION: 63-year-old woman with cholelithiasis. COMPARISON: None. FINDINGS: ABSENCE OF INTRAVENOUS CONTRAST DECREASES SENSITIVITY FOR DETECTION OF FOCAL LESIONS AND VASCULAR PATHOLOGY. LOWER THORAX: Unremarkable. LIVER: No hepatic signal abnormality. No focal hepatic lesions. BILIARY: Cholelithiasis. Gallbladder is distended and measures 4.3 cm in transverse diameter. No gallbladder wall thickening or pericholecystic edema. The common bile duct is at the upper limit of normal in caliber and measures 0.7 cm; no filling defects. Minimal prominence of the intrahepatic bile ducts.SPLEEN: No splenomegaly.PANCREAS: No focal masses or ductal dilatation. ADRENALS: No adrenal nodules.KIDNEYS/URETERS: No hydronephrosis or solid mass lesions. PERITONEUM/RETROPERITONEUM: No free fluid.LYMPH NODES: No lymphadenopathy.VESSELS: Unremarkable. GI TRACT: No distention or wall thickening. BONES AND SOFT TISSUES: Unremarkable.IMPRESSION:Cholelithiasis. No specific evidence of acute cholecystitis. The common bile duct is at the upper limit of normal in caliber without choledocholithiasis. Minimal prominence of the intrahepatic bile ducts. Signed: Gabriel Strickland MDReport Verified Date/Time : 12/04/2018 15:18:56 Reading Location: [facility] B1 C013Y CT Body Reading Room BASIC METABOLIC [id number] 08:37:00 Test Item Value Reference Range Comments SODIUM (BEAKER) (test 137 meq/L 136-145 slun=980) POTASSIUM (BEAKER) (test 4.3 meq/L 3.5-5.1 Specimen moderately zmxf=921) hemolyzed CHLORIDE (BEAKER) (test 103 meq/L 98-107 ncun=517) CO2 (BEAKER) (test 26 meq/L 22-29 bota=353) BLOOD UREA NITROGEN 10 mg/dL 7-21 (BEAKER) (test edup=751) CREATININE (BEAKER) (test 0.79 mg/dL 0.57-1.25 Specimen moderately ehjf=842) hemolyzed GLUCOSE RANDOM (BEAKER) 93 mg/dL 70-105 (test kmkp=085) CALCIUM (BEAKER) (test 8.9 mg/dL 8.4-10.2 dxdh=448) EGFR (BEAKER) (test 74 mL/min/1.73 sq m ESTIMATED GFR IS NOT qbpa=4413) ACCURATE CREATININE CLEARANCE IN PREDICTING GLOMERULAR FILTRATION RATE. ESTIMATED GFR IS NOT APPLICABLE FOR DIALYSIS PATIENTS. Specimen slightly ictericLIPID [id number] 08:37:00 Test Item Value Reference Range Comments TRIGLYCERIDES (BEAKER) (test 51 mg/dL Specimen moderately mbdm=409) hemolyzed CHOLESTEROL (BEAKER) (test 158 mg/dL Specimen moderately swxg=169) hemolyzed HDL CHOLESTEROL (BEAKER) (test 65 mg/dL zngb=456) LDL CHOLESTEROL CALCULATED 83 mg/dL (BEAKER) (test rhmd=382) Triglyceride Reference Range: Low Risk <150 Borderline 150- 199 High Risk 200-499 Very High Risk >=500Cholesterol Reference Range: Low Risk <200 Borderline 200-239 High Risk > 240HDL Cholesterol Reference Range: Low Risk >=60 High Risk <40LDL Cholesterol Reference Range: Optimal <100 Near Optimal 100-129 Borderline 130-159 High 160-189 Very High >=190 Specimen slightly ictericHEPATIC FUNCTION [id number] 08:37: 00 Test Item Value Reference Range Comments TOTAL PROTEIN (BEAKER) (test 8.3 gm/dL 6.0-8.3 Specimen moderately hemolyzed lvie=173) ALBUMIN (BEAKER) (test 3.7 g/dL 3.5-5.0 Specimen moderately hemolyzed oeif=6270) BILIRUBIN TOTAL (BEAKER) (test 4.4 mg/dL 0.2-1.2 Specimen moderately hemolyzed woii=744) BILIRUBIN DIRECT (BEAKER) 2.3 mg/dL 0.1-0.5 Specimen moderately hemolyzed (test cdck=367) ALKALINE PHOSPHATASE (BEAKER) 274 U/L 40-150 (test gead=442) AST (SGOT) (BEAKER) (test 245 U/L 5-34 Specimen moderately hemolyzed dsag=581) ALT (SGPT) (BEAKER) (test 271 U/L 6-55 Specimen moderately ftqv=150) hemolyzed Specimen slightly ictericPROTHROMBIN [id number] 08:12:00 Test Item Value Reference Range Comments PROTIME (BEAKER) (test zdim=240) 14.8 seconds 11.9-14.2 INR (BEAKER) (test wlhw=658) 1.2 <=5.9 Effective 10/03/2018: PT Reference Range ChangeNew: 11.9-14.2 Previous: 11.7- 14.7RECOMMENDED COUMADIN/WARFARIN INR THERAPY RANGESSTANDARD DOSE: 2.0-3.0 Includes: PROPHYLAXIS for venous thrombosis, systemic embolization; TREATMENT for venous thrombosis and/or pulmonary embolus.HIGH RISK: Target INR is2.5-3.5 for patients wiht mechanical heart valves.CBC W/PLT COUNT & AUTO [id number] 08:11:00 Test Item Value Reference Range Comments WHITE BLOOD CELL COUNT (BEAKER) (test xpaz=062) 11.9 K/ L 3.5-10.5 RED BLOOD CELL COUNT (BEAKER) (test pfnj=560) 4.81 M/ L 3.93-5.22 HEMOGLOBIN (BEAKER) (test ucdb=103) 13.7 GM/DL 11.2-15.7 HEMATOCRIT (BEAKER) (test fvrk=364) 43.3 % 34.1-44.9 MEAN CORPUSCULAR VOLUME (BEAKER) (test yqro=639) 90.0 fL 79.4-94.8 MEAN CORPUSCULAR HEMOGLOBIN (BEAKER) (test 28.5 pg 25.6-32.2 laxq=485) MEAN CORPUSCULAR HEMOGLOBIN CONC (BEAKER) (test 31.6 GM/DL 32.2-35.5 mxfg=525) RED CELL DISTRIBUTION WIDTH (BEAKER) (test 14.4 % 11.7-14.4 yvyf=843) PLATELET COUNT (BEAKER) (test rwgq=028) 295 K/CU MM 150-450 MEAN PLATELET VOLUME (BEAKER) (test qhve=018) 11.2 fL 9.4-12.3 NUCLEATED RED BLOOD CELLS (BEAKER) (test 0 /100 WBC 0-0 kppw=725) NEUTROPHILS RELATIVE PERCENT (BEAKER) (test 79 % axrb=918) LYMPHOCYTES RELATIVE PERCENT (BEAKER) (test 11 % gtwg=644) MONOCYTES RELATIVE PERCENT (BEAKER) (test 10 % mlzm=753) EOSINOPHILS RELATIVE PERCENT (BEAKER) (test 0 % xhzh=912) BASOPHILS RELATIVE PERCENT (BEAKER) (test 0 % nviu=351) NEUTROPHILS ABSOLUTE COUNT (BEAKER) (test 9.39 K/ L 1.56-6.13 caem=623) LYMPHOCYTES ABSOLUTE COUNT (BEAKER) (test 1.26 K/ L 1.18-3.74 rpyr=249) MONOCYTES ABSOLUTE COUNT (BEAKER) (test 1.17 K/ L 0.24-0.36 pwme=814) EOSINOPHILS ABSOLUTE COUNT (BEAKER) (test 0.02 K/ L 0.04-0.36 gcex=930) BASOPHILS ABSOLUTE COUNT (BEAKER) (test 0.05 K/ L 0.01-0.08 yecr=202) IMMATURE GRANULOCYTES-RELATIVE PERCENT (BloggerceAKER) 0 % 0-1 (test vvlz=4712)
[2019-06-01 17:58] LABS: Basophils % 0.9 % (0-1.3); Hematocrit 41.5 % (36.0-45.0); Lymphocytes % 38.6 % (15.3-44.8); MPV 8.7 fL (7.6-11.3); RBC Red Blood Cell Count 4.78 M/uL (3.86-4.86)
[2019-06-01 18:06] LABS: ALT/SGPT 18 U/L (12-78); AST/SGOT 13 U/L (15-37); Albumin 3.7 g/dL (3.4-5.0); Alkaline Phosphatase 124 U/L (45-117); BUN Blood Urea Nitrogen 14 mg/dL (7-18); Bicarbonate 31 mmol/L (21-32); Bilirubin Direct < 0.1 mg/dL (0-0.2); Bilirubin Total 0.2 mg/dL (0.2-1.0); Glucose Level 93 mg/dL (74-106); Lipase 117 U/L (73-393); Potassium 3.8 mmol/L (3.5-5.1); Protein, Total 8.7 g/dL (6.4-8.2); Sodium Level 138 mmol/L (136-145)
[2019-06-01] MEDS ORDERED: ONDANSETRON 4 MG/2 ML VIAL ONE (18:24)
[2019-06-01] MEDS ORDERED: FENTANYL CITR 100 MCG/2 ML ONE (18:24)
--- NOTE | 2019-06-01 19:33 | RAD REPORT ---
EXAM DESCRIPTION: CTAbdomen Pelvis W Contrast - 06/01/2019 7:24 pm CLINICAL HISTORY: Abdominal pain. ABD PAIN COMPARISON: No comparisons TECHNIQUE: Biphasic CT imaging of the abdomen and pelvis was performed with 100 ml non-ionic IV cont rast. All CT scans are performed using dose optimization technique as appropriate and may include automated exposure control or mA/KV adjustment according to patient size. FINDINGS: The lung bases are clear. Mild diffuse fatty liver is seen. Cholecystectomy clips noted. The spleen, pancreas, adrenal glands a nd kidneys are within normal limits. No bowel obstruction, free air, free fluid or abscess. Large fat containing ventral hernia is seen. A ppendectomy. No evidence of significant lymphadenopathy. No suspicious bony findings. IMPRESSION: Large fat containing ventral hernia.
--- NOTE | 2019-06-01 19:47 | EDPHYS ---
Physician Documentation [facility] Name: Danisha Dobbs Age: 63 yrs Sex: Female : 1955 Arrival Date: 06/01/2019 Time: 15:09 Bed 5 Private MD: ED Physician Duane Ohara HPI: 06/01 18:06 This 63 yrs old Female presents to ER via Ambulatory with complaints of pm1 Abdominal pain. 18:06 The patient presents with abdominal pain. Onset: The symptoms/episode began/occurred 6 pm1 month(s) ago. The symptoms do not radiate. Associated signs and symptoms: none. Pertinent negatives: nausea, vomiting, and diarrhea, dysuria, fever. The symptoms are described as achy. Modifying factors: the symptoms are aggravated by standing up causes a bump to pop out on her abdomen. She believes that she has a hernia. The patient has not recently seen a physician. Historical: - Allergies: 15:32 Codeine; hb - Home Meds: 18:32 None [Active]; jl7 - PMHx: 18:32 None; jl7 - PSHx: 15:32 Appendectomy; right ovary removed; left knee surgery; ; right arm surgery; hb Cholecystectomy; - Immunization history:: Adult Immunizations up to date. - Coronavirus screen:: The patient has NOT traveled to [place], [place], or [place] in the past 14 days. The patient has NOT had contact with known/suspected case of Coronavirus? Proceed with normal triage procedures. - Social history:: Smoking status: Patient denies any tobacco usage or history of. - Ebola Screening: : No symptoms or risks identified at this time. ROS: 18:06 Constitutional: Negative for fever, chills, and weight loss, Eyes: Negative for injury, pm1 pain, redness, and discharge, ENT: Negative for injury, pain, and discharge, Neck: Negative for injury, pain, and swelling, Cardiovascular: Negative for chest pain, palpitations, and edema, Respiratory: Negative for shortness of breath, cough, wheezing, and pleuritic chest pain. 18:06 Back: Negative for injury and pain, : Negative for injury, bleeding, discharge, and swelling, MS/Extremity: Negative for injury and deformity, Skin: Negative for injury, rash, and discoloration, Neuro: Negative for headache, weakness, numbness, tingling, and seizure. 18:06 Abdomen/GI: Positive for abdominal pain, Negative for nausea, vomiting, and diarrhea, constipation. Exam: 18:06 Constitutional: This is a well developed, well nourished patient who is awake, alert, pm1 and in no acute distress. Head/Face: Normocephalic, atraumatic. Neck: Trachea midline, no thyromegaly or masses palpated, and no cervical lymphadenopathy. Supple, full range of motion without nuchal rigidity, or vertebral point tenderness. No Meningismus. Chest/axilla: Normal chest wall appearance and motion. Nontender with no deformity. No lesions are appreciated. Cardiovascular: Regular rate and rhythm with a normal S1 and S2. No gallops, murmurs, or rubs. Normal PMI, no JVD. No pulse deficits. Respiratory: Lungs have equal breath sounds bilaterally, clear to auscultation and percussion. No rales, rhonchi or wheezes noted. No increased work of breathing, no retractions or nasal flaring. 18:06 Back: No spinal tenderness. No costovertebral tenderness. Full range of motion. Skin: Warm, dry with normal turgor. Normal color with no rashes, no lesions, and no evidence of cellulitis. MS/ Extremity: Pulses equal, no cyanosis. Neurovascular intact. Full, normal range of motion. 18:06 Abdomen/GI: Inspection: obese Bowel sounds: normal, Palpation: soft, mild abdominal tenderness, in the between epigastric area and umbillicus, mass, is not appreciated, rebound tenderness, is not appreciated, Hernia: noted in the paraumbilical area, incarceration, is not appreciated, tenderness, that is mild, easily reducible. 18:06 Neuro: Orientation: is normal, Motor: is normal, moves all fours, Sensation: is normal, no obvious gross deficits. Vital Signs: 15:30 BP 148 / 78; Pulse 71; Resp 16; Temp 97.9; Pulse Ox 100% on R/A; Weight 80.74 kg; hb Height 5 ft. 2 in. (157.48 cm); Pain 8/10; 18:30 BP 128 / 63; Pulse 60; Resp 16 S; Pulse Ox 100% on R/A; Pain 7/10; jl7 19:42 BP 119 / 59; Pulse 63; Resp 17; Pulse Ox 100% on R/A; rv 15:30 Body Mass Index 32.56 (80.74 kg, 157.48 cm) hb MDM: 17:07 Patient medically screened. pm1 19:44 Data reviewed: vital signs. Data interpreted: Pulse oximetry: on room air is 100 %. pm1 Interpretation: normal. Counseling: I had a detailed discussion with the patient and/or guardian regarding: the historical points, exam findings, and any diagnostic results supporting the discharge/admit diagnosis, lab results, radiology results, the need for outpatient follow up, for definitive care, a general surgeon, weight loss to address ventral hernia in addition to seeing general surgery, to return to the emergency department if symptoms worsen or persist or if there are any questions or concerns that arise at home. 19:47 ED course: Patient with allergy to codeine. Will discharge patient home with Bentyl to pm1 address what suspect is abdominal pain and discomfort from ventral hernia and high fatty diet. Patient with high fat diet and floating stools post cholecystectomy. Instructed patient on weight loss and low fat diet . 06/01 17:10 Order name: Basic Metabolic Panel; Complete Time: 19:01 pm1 06/01 17:10 Order name: CBC with Diff; Complete Time: 19:01 pm1 06/01 17:10 Order name: Creatinine for Radiology; Complete Time: 19:01 pm1 06/01 17:10 Order name: Hepatic Function; Complete Time: 19:01 pm1 06/01 17:10 Order name: Lipase; Complete Time: 19:01 pm1 06/01 17:27 Order name: Urine Dipstick--Ancillary (enter results) eb 06/01 17:10 Order name: IV Saline Lock; Complete Time: 17:39 pm1 06/01 17:10 Order name: Labs collected and sent; Complete Time: 17:39 pm1 06/01 17:10 Order name: Urine Dipstick-Ancillary (obtain specimen); Complete Time: 17:39 pm1 06/01 17:46 Order name: CT Abd/Pelvis - IV Contrast Only; Complete Time: 19:35 pm1 Administered Medications: 18:00 Drug: Zofran 4 mg Route: IVP; Site: right antecubital; [facility] 19:43 Follow up: Response: No adverse reaction rv 18:32 Drug: fentaNYL (PF) 25 mcg Route: IVP; Site: right antecubital; jl7 19:43 Follow up: Response: No adverse reaction; RASS: Alert and Calm (0) rv Disposition: 06/01/19 19:46 Discharged to Home. Impression: Ventral hernia without obstruction or gangrene. - Condition is Stable. - Discharge Instructions: Hernia, Adult. - Prescriptions for Bentyl 20 mg Oral Tablet - take 1 tablet by ORAL route every 6 hours As needed; 20 tablet. - Medication Reconciliation Form, Thank You Letter, Antibiotic Education, Prescription Opioid Use form. - Follow up: Emergency Department; When: As needed; Reason: Worsening of condition. Follow up: Private Physician; When: 2 - 3 days; Reason: Recheck today's complaints, Continuance of care, Re-evaluation by your physician. - Problem is new. - Symptoms have improved. Addendum: 06/02/2019 21:19 Co-signature as Attending Physician, Duane Ohara MD I agree with the assessment and k dr plan of care. Signatures: Dispatcher [employer] EDMS Duane Ohara MD MD [facility] Marques Estrada NP SURGICAL SUPERVISOR pm1 Lita Kilgore RN RN hb Wayne Collins RN RN jl7 Yomi Merino, RN RN rv Corrections: (The following items were deleted from the chart) 06/01 20:03 19:46 06/01/2019 19:46 Discharged to Home. Impression: Ventral hernia without rv obstruction or gangrene. Condition is Stable. Forms are Medication Reconciliation Form, Thank You Letter, Antibiotic Education, Prescription Opioid Use. Follow up: Emergency Department; When: As needed; Reason: Worsening of condition. Follow up: Private Physician; When: 2 - 3 days; Reason: Recheck today's complaints, Continuance of care, Re-evaluation by your physician. Problem is new. Symptoms have improved. pm1
--- NOTE | 2019-06-01 19:47 | ER ---
Nurse's Notes [facility] Name: Danisha Dobbs Age: 63 yrs Sex: Female : 1955 Arrival Date: 06/01/2019 Time: 15:09 Bed 5 Private MD: Diagnosis: Ventral hernia without obstruction or gangrene Presentation: 06/01 15:30 Presenting complaint: Worsening upper abdominal pain and swelling since cholecystectomy hb December 2018. Transition of care: patient was not received from another setting of care. Onset of symptoms was December 2018. Risk Assessment: Do you want to hurt yourself or someone else? Patient reports no desire to harm self or others. Initial Sepsis Screen: Does the patient meet any 2 criteria? No. Patient's initial sepsis screen is negative. Does the patient have a suspected source of infection? No. Patient's initial sepsis screen is negative. Care prior to arrival: None. 15:30 Method Of Arrival: Ambulatory hb 15:30 Acuity: KIRAN 3 hb Historical: - Allergies: 15:32 Codeine; hb - Home Meds: 18:32 None [Active]; jl7 - PMHx: 18:32 None; jl7 - PSHx: 15:32 Appendectomy; right ovary removed; left knee surgery; ; right arm surgery; hb Cholecystectomy; - Immunization history:: Adult Immunizations up to date. - Coronavirus screen:: The patient has NOT traveled to [place], [place], or [place] in the past 14 days. The patient has NOT had contact with known/suspected case of Coronavirus? Proceed with normal triage procedures. - Social history:: Smoking status: Patient denies any tobacco usage or history of. - Ebola Screening: : No symptoms or risks identified at this time. Screenin:20 Abuse screen: Denies threats or abuse. Denies injuries from another. Nutritional jl7 screening: No deficits noted. Tuberculosis screening: No symptoms or risk factors identified. Fall Risk IV access (20 points). Total Lynne Fall Scale indicates No Risk (0-24 pts). Assessment: 16:45 General: Appears in no apparent distress. uncomfortable, Behavior is calm, cooperative, jl7 appropriate for age. Pain: Complains of pain in umbilical area Pain currently is 8 out of 10 on a pain scale. Quality of pain is described as sharp, stabbing, Is continuous. Neuro: Level of Consciousness is awake, alert, obeys commands, Oriented to person, place, time, situation. Cardiovascular: Patient's skin is warm and dry. Respiratory: Airway is patent Respiratory effort is even, unlabored, Respiratory pattern is regular, symmetrical. GI: Abd is soft X 4 quads Abdomen is tender to palpation in umbilical area and right lower quadrant Reports normal bowel habits. : No signs and/or symptoms were reported regarding the genitourinary system. Derm: Skin is pink, warm \T\ dry. 19:44 Reassessment: Patient appears in no apparent distress at this time. Patient is alert, rv oriented x 3, equal unlabored respirations, skin warm/dry/pink. Vital Signs: 15:30 BP 148 / 78; Pulse 71; Resp 16; Temp 97.9; Pulse Ox 100% on R/A; Weight 80.74 kg; hb Height 5 ft. 2 in. (157.48 cm); Pain 8/10; 18:30 BP 128 / 63; Pulse 60; Resp 16 S; Pulse Ox 100% on R/A; Pain 7/10; jl7 19:42 BP 119 / 59; Pulse 63; Resp 17; Pulse Ox 100% on R/A; rv 15:30 Body Mass Index 32.56 (80.74 kg, 157.48 cm) hb ED Course: 15:09 Patient arrived in ED. es 15:31 Triage completed. hb 15:32 Arm band placed on. hb 16:38 Wayne Collins RN is Primary Nurse. jl7 17:05 Marques Estrada NP is PHCP. pm1 17:05 Duane Ohara MD is Attending Physician. pm1 17:20 Patient has correct armband on for positive identification. Placed in gown. Bed in low jl7 position. Call light in reach. Side rails up X 1. Pulse ox on. NIBP on. Warm blanket given. 17:20 Initial lab(s) drawn, by me, sent to lab. Inserted saline lock: 22 gauge in right jl7 antecubital area, using aseptic technique. Blood collected. 18:43 CT Abd/Pelvis - IV Contrast Only In Process Unspecified. EDMS 20:02 No provider procedures requiring assistance completed. IV discontinued, intact, rv bleeding controlled, No redness/swelling at site. Pressure dressing applied. Administered Medications: 18:00 Drug: Zofran 4 mg Route: IVP; Site: right antecubital; jl7 19:43 Follow up: Response: No adverse reaction rv 18:32 Drug: fentaNYL (PF) 25 mcg Route: IVP; Site: right antecubital; jl7 19:43 Follow up: Response: No adverse reaction; RASS: Alert and Calm (0) rv Outcome: 19:46 Discharge ordered by MD. pm1 20:02 Discharged to home ambulatory, with family. rv 20:02 Condition: good 20:02 Discharge instructions given to patient, family, Instructed on discharge instructions, follow up and referral plans. medication usage, Demonstrated understanding of instructions, follow-up care, medications, Prescriptions given X 1. 20:03 Patient left the ED. rv Signatures: Dispatcher [employer] EDAlexa Platt Patrick, SOFTWARE ENGINEERING PROJECT MANAGER SOFTWARE ENGINEERING PROJECT MANAGER pm1 Lita Kilgore RN RN Wayne Collins RN RN jl7 Yomi Merino RN RN rv Corrections: (The following items were deleted from the chart) 19:44 19:42 Reassessment: Patient appears in no apparent distress at this time. Patient rv and/or family updated on plan of care and expected duration. Pain level reassessed. CONDITION IS UNCHANGED PER PATIENT. rv
[2019-06-01 20:08] VITALS: TEMP 97.9; O2SAT 100
[2019-06-01 20:11] VITALS: BP 119/59
[2019-06-01 22:08] LABS: Urine Blood TRACE (NEG); Urine Glucose NEGATIVE (NEG); Urine Protein NEGATIVE (NEG); Urine pH 6.5 (5.0-7.0)
== END 2019-06-01 20:03 | disposition home or self-care (01) ==
LOC: ER 15:02
DX: K43.9 Ventral hernia without obstruction or gangrene (principal)
CPT/HCPCS: 36415; 74177; 80048; 80076; 81003; 83690; 85025; 96374; 96375; 99284; J2405; J3010; Q9967

== ENCOUNTER 2022-11-17 15:11 | Observation (INO) | payer OTHER, SELFPAY ==
--- OUTSIDE RECORDS SUMMARY | 2022-11-17 15:27 | XMS REPORT | Continuity of Care Document ---
:1955 [facility] t Address [address] [facility] [address] [place] [address] Care Team Providers Name Role Phone Arlene RAZO Anneliese Primary Care Physician [phone] Doctor Unassigned, [place] Attending Clinician Unavailable SONY REES Attending Clinician Unavailable SONY REES Admitting Clinician Unavailable Payers Payer Name Policy Type Policy Number Effective Date Expiration Date S ource Problems Condition Condition Condition Status Onset Resolution Last Treating Co mments Source Name Details Category Date Date Treatment Clinician Date Choledocho Choledocho Disease Active C [facility] lithiasis lithiasis 7 Luke s 00:00: [place] [address] Center Contracept Contracept Disease Active 2017-05 U nivers raoul raoul 0-31 ity of management [facility] [place] Other Other Disease Active 2017-05 Univers depression depression 0-31 it y of 00:00: [address] Cervical Cervical Disease Active 2017-05 Unive rs polyp polyp 0-31 ity of 00:00: [address] Well woman Well woman Disease Active U nivers exam exam 1-26 ity of 00:00: [address] Immunizati Immunizati Disease Active U nivers ons up to ons up to 1-07 ity of date date 00:00: [address] Branch Postmenopa Postmenopa Disease Active U nivers usal usal 1-06 ity of 00:00: [address] Obesity Obesity Disease Active 2012-05 Overview: Univ ers (BMI (BMI 1-20 Formattin ity of 30-39.9) 30-39.9) 00:00: g of this Dagoberto as 00 note Medical might be Branch different from the original. 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 Mucous Mucous Disease Active 2012-05 Univers polyp of polyp of 1-20 ity of cervix cervix 00:00: [address] Branch Allergies, Adverse Reactions, Alerts Allergy Allergy Status Severity Reaction(s) Onset Inactive Treating Comm ents Source Name Type Date Date Clinician Codeine Propensi Active Sulfate ty to 12-08 - Oral adverse 00:00: reaction 00 to drug Codeine Propensi Active ty to 12-13 adverse 00:00: reaction 00 to drug Codeine Drug Active Nausea And Nausea[facility] Vomiting 12-04 vomiting, [facility] nce 00:00: headache, Medical 00 upset Center stomach Social History Social Habit Start Date Stop Date Quantity Comments Source History SDOH [facility] Alcohol Comment Medical C enter History SDOH [facility] Alcohol Std [facility] r Drinks History SDOH [facility] Alcohol Binge Medical [facility] Alcohol intake 2018-12-07 2018-12-[address] [facility] 00:00:00 00:00:00 non-drinker of Medical Ce nter alcohol (finding) Tobacco use and 2018-12-04 2018-12-04 Smokeless [address] [facility] exposure 00:00:00 00:00:00 non-user Medical Center History SDOH 2018-12-04 2018-12-[address] [facility] Alcohol Frequency 00:00:00 00:00:00 [facility] Center History of 1999-08-04 Cigarette Smoker [facility] of tobacco use 00:00:00 [facility] Sex Assigned At [address] [facility] kes 00:00:00 00:00:00 [facility] Smoking Status Start Date Stop Date Source Never smoked tobacco [facility] Ex-smoker 2013-03-27 00:00:00 2013-03-27 00:00:00 [facility] Medications Ordered Filled Start Stop Current Ordering Indication Dosage Frequency Signature Comments Components Source Medication Medication Date Date Medication? Clinician (SIG) Name Name Dose No Unknown 8-04 00:00: 00 INSTILL 4 2-0 No 301 DROPS IN 12-09 THE 00:00: AFFECTED 00 EAR(S) TWICE DAILY TAKE 1 2-0 No 20 TABLET 8- DAILY. 00:00: 00 amoxicillin 2020-0 No 1mg 875 mg 1-22 tablet 00:00: 00 Bromfed DM 2020-0 No 5mg/5 2 mg-30 1-22 mL mg-10 mg/5 00:00: mL oral 00 syrup amoxicillin 2020-0 No 1mg 875 mg 1-22 tablet 00:00: 00 Bromfed DM 2020-0 No 5mg/5 2 mg-30 1-22 mL mg-10 mg/5 00:00: mL oral 00 syrup tramadol 50 2019-0 No 1mg mg tablet 12-13 00:00: 00 ondansetron 2019-0 No 1mg 4 mg 12-13 disintegrat 00:00: ing tablet 00 pantoprazol 2019-0 No 1mg e 40 mg 8-08 tablet,martin 00:00: yed release 00 tramadol 50 2019-0 No 1mg mg tablet 12-13 00:00: 00 ondansetron 2019-0 No 1mg 4 mg 8 disintegrat 00:00: ing tablet 00 pantoprazol 2019-0 No 1mg e 40 mg 8-08 tablet,martin 00:00: yed release 00 pantoprazol 2019-0 Yes 40mg QD Take [address] [facility] 8-03 tablet (40 [facility] (PROTONIX) 00:00: mg total) Me dical 40 MG 00 by mouth Center tablet daily. pantoprazol 2019-0 Yes 40mg QD Take [address] [facility] 8-03 tablet (40 [facility] (PROTONIX) 00:00: mg total) Me dical 40 MG 00 by mouth Center tablet daily. pantoprazol 2019-0 Yes 40mg QD Take [address] [facility] 8-03 tablet (40 [facility] (PROTONIX) 00:00: mg total) Me dical 40 MG 00 by mouth Center tablet daily. pantoprazol 2019-0 Yes 40mg QD Take [address] [facility] 8-03 tablet (40 [facility] (PROTONIX) 00:00: mg total) Me dical 40 MG 00 by mouth Center tablet daily. pantoprazol 2019-0 Yes 40mg QD Take [address] [facility] 8-03 tablet (40 [facility] (PROTONIX) 00:00: mg total) Me dical 40 MG 00 by mouth Center tablet daily. acetaminoph 2019-0 Yes 500mg Take [address] en 8-02 mg by [facility] (TYLENOL) 15:47: mouth Medical 500 MG 32 every 6 Center tablet (six) hours as needed for Pain. acetaminoph 2019-0 Yes 500mg Take [address] en 8-02 mg by [facility] (TYLENOL) 15:47: mouth Medical 500 MG 32 every 6 Center tablet (six) hours as needed for Pain. acetaminoph 2019-0 Yes 500mg Take [address] en 8-02 mg by [facility] (TYLENOL) 15:47: mouth Medical 500 MG 32 every 6 Center tablet (six) hours as needed for Pain. acetaminoph 2019-0 Yes 500mg Take [address] en 8-02 mg by [facility]ukes (TYLENOL) 15:47: mouth Medical 500 MG 32 every 6 Center tablet (six) hours as needed for Pain. acetaminoph 2019-0 Yes 500mg Take [address] en 8-02 mg by [facility] (TYLENOL) 15:47: mouth Medical 500 MG 32 every 6 Center tablet (six) hours as needed for Pain. Wellbutrin 2014-05 No 1mg 100 mg 2-09 tablet 00:00: 00 Wellbutrin 2014-05 No 1mg 100 mg 2-09 tablet 00:00: 00 Immunizations Ordered Filled Immunization Date Status Comments [facility] e Immunization Name Name Tdap 2021-12-09 Completed 00:00:00 pneumococcal 2021-12-09 Completed polysacchar 00:00:00 Pfizer COVID-19 2021-05-18 Completed Vaccine 00:00:00 Pfizer COVID-19 2021-05-18 Completed Vaccine 00:00:00 TD, NOS 2008 Completed [facility] of 00:00:00 [facility] Vital Signs Vital Name Observation Time Observation Value Comments Source BP Systolic 2021-12-09 08:15:00 108 mm[Hg] BP Diastolic 2021-12-09 08:15:00 70 mm[Hg] Weight Measured 2021-12-09 08:15:00 187.80 pounds Height Measured 2021-12-09 08:15:00 60.00 inches Body Temperature 2021-12-09 08:15:00 98.30 degrees Heart Rate 2021-12-09 08:15:00 73.00 /min Respiratory Rate 2021-12-09 08:15:00 18.00 /min BP Systolic 2021-12-04 09:26:00 136 mm[Hg] BP Diastolic 2021-12-04 09:26:00 84 mm[Hg] Weight Measured 2021-12-04 09:26:00 187.60 pounds Height Measured 2021-12-04 09:26:00 60.00 inches Body Temperature 2021-12-04 09:26:00 98.20 degrees Heart Rate 2021-12-04 09:26:00 69.00 /min Respiratory Rate 2021-12-04 09:26:00 18.00 /min BP Systolic 2020-05-28 10:17:00 129 mm[Hg] BP Diastolic 2020-05-28 10:17:00 67 mm[Hg] Weight Measured 2020-05-28 10:17:00 187.80 pounds Height Measured 2020-05-28 10:17:00 60.00 inches Body Temperature 2020-05-28 10:17:00 99.00 degrees Heart Rate 2020-05-28 10:17:00 71.00 /min Respiratory Rate 2020-05-28 10:17:00 17.00 /min BP Systolic 2019-05-29 09:47:00 128 mm[Hg] BP Diastolic 2019-05-29 09:47:00 72 mm[Hg] Weight Measured 2019-05-29 09:47:00 178.20 pounds Height Measured 2019-05-29 09:47:00 60.00 inches Body Temperature 2019-05-29 09:47:00 99.00 degrees Heart Rate 2019-05-29 09:47:00 65.00 /min Respiratory Rate 2019-05-29 09:47:00 16.00 /min BP Systolic 2019-01-08 10:09:00 113 mm[Hg] BP Diastolic 2019-01-08 10:09:00 68 mm[Hg] Weight Measured 2019-01-08 10:09:00 173.40 pounds Height Measured 2019-01-08 10:09:00 60.00 inches Body Temperature 2019-01-08 10:09:00 99.30 degrees Heart Rate 2019-01-08 10:09:00 75.00 /min Respiratory Rate 2019-01-08 10:09:00 16.00 /min BP Systolic 2018-12-13 11:24:00 114 mm[Hg] BP Diastolic 2018-12-13 11:24:00 72 mm[Hg] Weight Measured 2018-12-13 11:24:00 172.20 pounds Height Measured 2018-12-13 11:24:00 60.00 inches Body Temperature 2018-12-13 11:24:00 98.20 degrees Heart Rate 2018-12-13 11:24:00 74.00 /min Respiratory Rate 2018-12-13 11:24:00 BP Systolic 2015-04-22 10:41:00 110 mm[Hg] BP Diastolic 2015-04-22 10:41:00 72 mm[Hg] Weight Measured 2015-04-22 10:41:00 167.60 pounds Height Measured 2015-04-22 10:41:00 60.00 inches Body Temperature 2015-04-22 10:41:00 98.20 degrees Heart Rate 2015-04-22 10:41:00 60.00 /min Respiratory Rate 2015-04-22 10:41:00 16.00 /min BP Systolic 2015-04-22 10:25:00 110 mm[Hg] BP Diastolic 2015-04-22 10:25:00 72 mm[Hg] Weight Measured 2015-04-22 10:25:00 167.60 pounds Height Measured 2015-04-22 10:25:00 60.00 inches Body Temperature 2015-04-22 10:25:00 98.20 degrees Heart Rate 2015-04-22 10:25:00 60.00 /min Respiratory Rate 2015-04-22 10:25:00 16.00 /min BP Systolic 2015-04-15 10:49:00 138 mm[Hg] BP Diastolic 2015-04-15 10:49:00 84 mm[Hg] Weight Measured 2015-04-15 10:49:00 166.60 pounds Height Measured 2015-04-15 10:49:00 63.00 inches Body Temperature 2015-04-15 10:49:00 98.00 degrees Heart Rate 2015-04-15 10:49:00 62.00 /min Respiratory Rate 2015-04-15 10:49:00 15.00 /min BP Systolic 2015-04-15 10:44:00 138 mm[Hg] BP Diastolic 2015-04-15 10:44:00 84 mm[Hg] Weight Measured 2015-04-15 10:44:00 166.60 pounds Height Measured 2015-04-15 10:44:00 63.00 inches Body Temperature 2015-04-15 10:44:00 98.00 degrees Heart Rate 2015-04-15 10:44:00 62.00 /min Respiratory Rate 2015-04-15 10:44:00 15.00 /min Procedures Procedure Date / Time Performed Performing Clinician [facility] e REFERRAL- 2022-10-26 05:01:00 [facility] REQUEST/RESPONSE Name Medical Branch Plan of Care Planned Activity Planned Date Details Comments Source Goal Plan of Care Note [code = 31932-0] Goal Plan of Care Note [code = 15087-8] Goal Plan of Care Note [code = 83723-9] Goal Plan of Care Note [code = 62479-5] Goal Plan of Care Note [code = 93298-4] Goal Plan of Care Note [code = 95189-6] Goal Plan of Care Note [code = 34994-0] Goal Plan of Care Note [code = 79908-5] Goal Plan of Care Note [code = 77664-2] Goal Plan of Care Note [code = 06280-8] Goal Plan of Care Note [code = 33057-4] Goal Plan of Care Note [code = 35345-4] Goal Plan of Care Note [code = 74120-0] Goal Plan of Care Note [code = 38930-3] Goal Plan of Care Note [code = 89379-4] Goal Plan of Care Note [code = 48416-5] Goal Plan of Care Note [code = 20841-6] Goal Plan of Care Note [code = 95417-8] Goal Plan of Care Note [code = 03220-0] Goal Plan of Care Note [code = 95755-6] Goal Plan of Care Note [code = 39118-7] Goal Plan of Care Note [code = 11759-9] Goal Plan of Care Note [code = 70649-9] Goal Plan of Care Note [code = 13865-5] Goal Plan of Care Note [code = 63348-6] Goal Plan of Care Note [code = 47943-0] Goal Plan of Care Note [code = 13971-2] Goal Plan of Care Note [code = 25332-9] Goal Plan of Care Note [code = 33927-3] Goal Plan of Care Note [code = 02620-5] Goal Plan of Care Note [code = 07774-5] Goal Plan of Care Note [code = 90668-6] Goal Plan of Care Note [code = 74915-6] Goal Plan of Care Note [code = 65133-6] Goal Plan of Care Note [code = 56489-0] Goal Plan of Care Note [code = 73779-3] Goal Plan of Care Note [code = 49884-1] Goal Plan of Care Note [code = 51509-0] Goal Plan of Care Note [code = 13625-0] Goal Plan of Care Note [code = 48089-7] Goal Plan of Care Note [code = 41299-4] Goal Plan of Care Note [code = 55378-8] Goal Plan of Care Note [code = 81456-5] Goal Plan of Care Note [code = 17732-0] Goal Plan of Care Note [code = 82387-1] Goal Plan of Care Note [code = 58210-3] Goal Plan of Care Note [code = 09429-5] Goal Plan of Care Note [code = 55555-9] Goal Plan of Care Note [code = 89194-4] Goal Plan of Care Note [code = 46984-6] Goal Plan of Care Note [code = 64004-9] Goal Plan of Care Note [code = 64351-5] Goal Plan of Care Note [code = 55718-4] Goal Plan of Care Note [code = 56649-8] Goal Plan of Care Note [code = 30216-7] Goal Plan of Care Note [code = 70720-6] Goal Plan of Care Note [code = 83392-5] Goal Plan of Care Note [code = 78346-8] Goal Plan of Care Note [code = 74916-9] Goal Plan of Care Note [code = 10898-1] Goal Plan of Care Note [code = 40824-9] Goal Plan of Care Note [code = 18121-7] Goal Plan of Care Note [code = 36127-3] Goal Plan of Care Note [code = 71001-5] Goal Plan of Care Note [code = 76052-6] Encounters Start End Encounter Admission Attending Care Care Encounter Source Date/Time Date/Time Type Type Clinicians Facility Department ID 2022-10-26 2022-10-26 Outpatient SFA SFA [id number] 023 Yuri 10:35:19 10:35:19 0621 F José Manuel 2022-10-26 2022-10-26 Orders Doctor ALMA [id number] 00:00:00 00:00:00 Only Unassigned, ROBBY [id number] ity of [place] [facility] 4.2.7.2.686 Dagoberto as [phone] Medi felix 009 Branch 2022-10-24 2022-10-24 Outpatient SFA SFA [id number] 023 Yuri 11:40:17 11:40:17 0619 F José Manuel 2022-05-20 2022-05-20 Outpatient SFA SFA [id number] 023 Yuri 17:02:34 17:02:34 [address] [place] 2022-04-12 2022-04-12 Outpatient SFA SFA [id number] 022 Yuri 14:03:28 14:03:28 [address] [place] 2021-12-09 2021-12-09 Outpatient [id number] 00:00:00 00:00:00 Visit [id number] 2021-12-04 2021-12-04 Outpatient [id number]-c 00:00:00 00:00:00 Visit [id number] Results Test Description Test Time Test Comments Results Result Comments Source TSH, THIRD GENERATION 2021-12-10 04:31:23 Test Item Value Reference Range Interpretation Comme nts TSH, THIRD GENERATION (test 1.540 UIU/ML 0.400-4.100 UNLESS OTHERWISE INDICATED, code = 2821) ALL TESTING PER FORMED ATCLINICAL PATH [email or web address] [place]. [address] [place] [address] PATIENT ACCESS COORDINATOR: OKSANA QUINTERO M.D. JANIE Cortez [id number] [place] [id number] LIPID [id number] 03:00:35 Test Item Value Reference Range Interpretation Comments CHOLESTEROL (test 257 MG/DL <200 H code = 2210) TRIGLYCERIDES (test 260 MG/DL <150 H code = 2232) HDL CHOLESTEROL (test 50 MG/DL >39 code = 2220) CALC LDL CHOL (test 164 MG/DL <100 H NOTE: C ALCULATED LDL code = 2237) IS BASED ON JOAQUIM-TOSCANO METHOD WHICHINCLUDES ADJUSTABLE TRIGLYCERIDE:VL DL CHOLESTEROL RAT IO.THIS FACTOR VARIES B Y MEASURED TRIGLY CERIDE AND NON-HDLCHOL ESTEROL CONCENTRATIONS WITH INCREASED CALCU LATED LDL SEENIN HIGH ER TRIGLYCERIDE OR LOWER NON-HDL SPECIME NS. FOR MOREINFORMATION , SEE CLIENT ANNOUNCE MENT AT [email or web address] RISK RATIO LDL/HDL 3.28 RATIO <3.22 H (test code = 2238) COMPREHENSIVE METABOLIC [id number] 03:00:35 Test Item Value Reference Range Interpretation Comments GLUCOSE (test code = 105 MG/DL 70-99 H 2216) BUN (test code = 14 MG/DL 8-23 2207) CREATININE (test 0.85 MG/DL 0.60-1.30 code = 2214) eGFR (2020 CKD-EPI) 76 ML/MIN/1.73 >60 (test code = 19720) CALC BUN/CREAT (test 16 RATIO 6-28 code = 2235) SODIUM (test code = 140 MEQ/L [phone]) POTASSIUM (test code 5.0 MEQ/L 3.5-5.4 = 2228) CHLORIDE (test code 101 MEQ/L 95-107 = 2215) CARBON DIOXIDE (test 26 MEQ/L 19-31 code = 2206) CALCIUM (test code = 9.6 MG/DL 8.5-10.5 2208) PROTEIN, TOTAL (test 8.0 G/DL 6.1-8.3 code = 2229) ALBUMIN (test code = 4.3 G/DL 3.5-5.2 2200) CALC GLOBULIN (test 3.7 G/DL 1.9-3.7 code = 2240) CALC A/G RATIO (test 1.2 RATIO 1.0-2.6 code = 2234) BILIRUBIN, TOTAL 0.5 MG/DL See_Comment [Automated message] (test code = 2207) The syste m which generated this result transmit liz reference range : <=1.2. The refe rence range was not u sed to interpret th is result as normal/abnormal . ALKALINE PHOSPHATASE 110 U/L 40-140 (test code = 220) AST (test code = 19 U/L 9-40 8) ALT (test code = 11 U/L 5-40 2218) HEMOGLOBIN [id number] 02:27:53 Test Item Value Reference Range Interpretation Comments HEMOGLOBIN A1c (test code = 69291) 6.0 % 4.2-5.6 H CBC W/AUTO DIFF WITH [id number] 01:45:03 Test Item Value Reference Range Interpretation Comments WBC (test code = 6.6 K/UL 3.5-11.0 1001) RBC (test code = 4.74 M/UL 3.80-5.40 1002) HEMOGLOBIN (test code 13.7 G/DL 11.5-15.5 = 1003) HEMATOCRIT (test code 39.4 % 34.0-45.0 = 1004) MCV (test code = 83.1 fL 80.0-99.0 1005) MCH (test code = 28.9 PG 25.0-33.0 1006) MCHC (test code = 34.8 G/DL 31.0-36.0 1007) RDW (test code = 13.4 % 11.5-15.0 1038) NEUTROPHILS (test 59.0 % code = 1008) LYMPHOCYTES (test 29.6 % code = 1010) MONOCYTES (test code 8.8 % = 1011) EOSINOPHILS (test 1.8 % code = 1012) BASOPHILS (test code 0.6 % = 1013) IMMATURE GRANULOCYTES 0.2 % (test code = 1036) NUCLEATED RBCS (test 0.0 /100 WBC'S See_Comment [Aut omated code = 1065) message] The sy stem which generated this result transmitted reference range : 0.0. The refere nce range was not u sed to interpret th is result as normal/abnormal . PLATELET COUNT (test 361 K/UL 130-400 code = 1015) ABSOLUTE NEUTROPHILS 3.91 K/UL 1.50-7.50 (test code = 1066) ABSOLUTE LYMPHOCYTES 1.96 K/UL 1.00-4.00 (test code = 1067) ABSOLUTE MONOCYTES 0.58 K/UL 0.20-1.00 (test code = 1068) ABSOLUTE EOSINOPHILS 0.12 K/UL 0.00-0.50 (test code = 1040) ABSOLUTE BASOPHILS 0.04 K/UL 0.00-0.20 (test code = 1069) ABS IMMATURE 0.01 K/UL 0.00-0.10 GRANULOCYTES (test code = 1020) ABS NUCLEATED RBCS 0.00 K/UL 0.00-0.11 (test code = 34682) VAGINAL PATHOGENS DNA [id number] 15:36:26 Test Item Value Reference Range Interpretation Comments NALLELY SPECIES (test NEGATIVE NEGATIVE code = ) G. VAGINALIS (test NEGATIVE NEGATIVE code = ) T. VAGINALIS (test NEGATIVE NEGATIVE UNLESS O THERWISE code = ) INDICATED, ALL TESTING PERFORMED [facility] PATHOLOGY LABOR [facility] [address] [place] [address] 4 LABORATORY DIRE CTOR: OKSANA BERRY M.D. CLIA NUMBER [id number] [place] [id number] VAGINAL PATHOGENS DNA [id number] 00:00:00 Test Item Value Reference Range Interpretation Comments NALLELY SPECIES (test code = ) NEGATIVE G. VAGINALIS (test code = ) NEGATIVE T. VAGINALIS (test code = ) NEGATIVE LIPID [id number] 01:12:10 Test Item Value Reference Range Interpretation Comments CHOLESTEROL (test 232 MG/DL <200 H code = 2210) TRIGLYCERIDES (test 263 MG/DL <150 H code = 2232) HDL CHOLESTEROL (test 49 MG/DL >39 code = 2220) CALC LDL CHOL (test 143 MG/DL <100 H NOTE: C ALCULATED LDL code = 2237) IS BASED ON JOAQUIM-TOSCANO METHOD WHICHINCLUDES ADJUSTABLE TRIGLYCERIDE:VL DL CHOLESTEROL RAT IO.THIS FACTOR VARIES B Y MEASURED TRIGLY CERIDE AND NON-HDLCHOL ESTEROL CONCENTRATIONS WITH INCREASED CALCU LATED LDL SEENIN HIGH ER TRIGLYCERIDE OR LOWER NON-HDL SPECIME NS. FOR MOREINFORMATION , SEE CLIENT ANNOUNCE MENT AT [email or web address] [email or web address] RATIO LDL/HDL 2.92 RATIO <3.22 (test code = 2238) COMPREHENSIVE METABOLIC [id number] 01:12:10 Test Item Value Reference Range Interpretation Comments GLUCOSE (test code = 96 MG/DL 70-99 2216) BUN (test code = 15 MG/DL 8-23 2207) CREATININE (test 0.78 MG/DL 0.60-1.30 code = 2214) eGFR (2020 CKD-EPI) 85 ML/MIN/1.73 >60 (test code = 97707) CALC BUN/CREAT (test 19 RATIO 6-28 code = 2235) SODIUM (test code = 139 MEQ/L [phone]) POTASSIUM (test code 4.4 MEQ/L 3.5-5.4 = 2227) CHLORIDE (test code 99 MEQ/L 95-107 = 2214) CARBON DIOXIDE (test 26 MEQ/L 19-31 code = 220) CALCIUM (test code = 9.8 MG/DL 8.5-10.5 2208) PROTEIN, TOTAL (test 7.7 G/DL 6.1-8.3 code = 222) ALBUMIN (test code = 4.3 G/DL 3.5-5.2 2200) CALC GLOBULIN (test 3.4 G/DL 1.9-3.7 code = 2240) CALC A/G RATIO (test 1.3 RATIO 1.0-2.6 code = 2234) BILIRUBIN, TOTAL 0.3 MG/DL See_Comment [Automated message] (test code = 2207) The syste m which generated this result transmit liz reference range : <=1.2. The refe rence range was not u sed to interpret th is result as normal/abnormal . ALKALINE PHOSPHATASE 108 U/L 40-140 (test code = 2204) AST (test code = 17 U/L 9-40 2217) ALT (test code = 11 U/L 5-40 2218) LIPID [id number] 00:00:00 Test Item Value Reference Range Interpretation Comments CHOLESTEROL (test code = 2210) 232 MG/DL TRIGLYCERIDES (test code = 2232) 263 MG/DL HDL CHOLESTEROL (test code = 2220) 49 MG/DL CALC LDL CHOL (test code = 2237) 143 MG/DL RISK RATIO LDL/HDL (test code = 2.92 RATIO 2238) COMPREHENSIVE METABOLIC [id number] 00:00:00 Test Item Value Reference Range Interpretation Comments GLUCOSE (test code = 2217) 96 MG/DL BUN (test code = 2208) 15 MG/DL CREATININE (test code = 2214) 0.78 MG/DL eGFR (2020 CKD-EPI) (test code 85 ML/MIN/1.73 = 41606) CALC BUN/CREAT (test code = 19 RATIO 2235) SODIUM (test code = 2231) 139 MEQ/L POTASSIUM (test code = 2228) 4.4 MEQ/L CHLORIDE (test code = 2215) 99 MEQ/L CARBON DIOXIDE (test code = 26 MEQ/L 2205) CALCIUM (test code = 2209) 9.8 MG/DL PROTEIN, TOTAL (test code = 7.7 G/DL 2228) ALBUMIN (test code = 2201) 4.3 G/DL CALC GLOBULIN (test code = 3.4 G/DL 2239) CALC A/G RATIO (test code = 1.3 RATIO 2233) BILIRUBIN, TOTAL (test code = 0.3 MG/DL 2206) ALKALINE PHOSPHATASE (test 108 U/L code = 2204) AST (test code = 2218) 17 U/L ALT (test code = 2219) 11 U/L HEMOGLOBIN [id number] 02:50:21 Test Item Value Reference Range Interpretation Comments HEMOGLOBIN A1c (test code = 17259) 6.1 % 4.2-5.6 H HEMOGLOBIN [id number] 00:00:00 Test Item Value Reference Range Interpretation Comments HEMOGLOBIN A1c (test code = 99989) 6.1 % HEMOGLOBIN [id number] 00:00:00 Test Item Value Reference Range Interpretation Comments HEMOGLOBIN A1c (test code = 01679) 6.1 % BREAST ULTRASOUND [id number] 13:32:49 Name: Omar : 1955 Sex: F- BREAST ULTRASOUND BILATERALULTRASOUND OF BOTH BREASTS AND BOTH AXILLA: 10/28/2020LINICAL: Dense breasts. Comparison is made to exam dated 07/31/2020 mammogram - [facility]. Real-time ultrasound of both breasts and both axilla and clinical breast exam were performed. No abnormalities were seen sonographically in either axilla. Benign cysts and dilated ducts were seen bilaterally. No solid masses were seen. IMPRESSION: BENIGN - FOLLOW-UP RECOMMENDEDThere is no sonographic evidence of malignancy. A follow-up mammogram and an ultrasound in 12 months is recommended. Alisson Hernandez M.D. dm/:10/28/2020 13:32:49 Entry: - 10/28/2020 16:26:22Imaging Technologist: Yuliya Laureano , [facility]-FWletter sent: BIRADS 1-2 Normal Ultrasound BI-RADS: 2 BenignSCR MAMM BILATERAL MARYBEL CAD [id number] 16:12:37 Name: Omar : 1955 Sex: F - SCR MAMM BILATERAL MARYBEL CAD DIGITALBILATERAL DIGITAL SCREENING MAMMOGRAM 3D/2D WITH CAD: 07/31/2020LINICAL: Asymptomatic. Digital breast tomosynthesis was performed in addition to routine CC and MLO views. Current mammographic images were evaluated by [employer] CAD (computed aided detection) software. No prior exams were available for comparison. The tissue of both breasts is heterogeneously dense. This may lower the sensitivity of mammography. There are nodular densities bilaterally that most likely represent benign fibroadenomas, cysts, or nodular breast tissue, however this must be confirmed with ultrasound. No suspicious mass, architectural distortion, malignant type calcification, or lymph node abnormality detected. IMPRESSION: INCOMPLETE: ADDITIONAL IMAGING EVALUATION NEEDEDBilateral ultrasound recommended. Jarrett alvarenga/penrad:08/05/2020 16:12:37 Religion Department Chair: Deneen Acosta MM, [facility] Mammographyletter sent: Additional Imaging Mammogram BI-RADS: 0 Incomplete: Additional Imaging Evaluation NeededHIV AB/AG COMBO RFLX CONF 2020-06-03 00:00:00 Test Item Value Reference Range Interpretation Comments HIV 1/2 4TH GEN, RFLX CONF (test NON-REACTIVE code = 3514) HIV AB/AG COMBO RFLX [id number] 00:00:00 Test Item Value Reference Range Interpretation Comments HIV 1/2 4TH GEN, RFLX CONF (test NON-REACTIVE code = 3514) GC AND CHLAMYDIA, AMPLIFIED, [id number] 00:00:00 Test Item Value Reference Range Interpretation Comments GONORRHEA, NAAT (test code = 29889) NEGATIVE CHLAMYDIA, NAAT (test code = 11988) NEGATIVE GC AND CHLAMYDIA, AMPLIFIED, [id number] 00:00:00 Test Item Value Reference Range Interpretation Comments GONORRHEA, NAAT (test code = 52987) NEGATIVE CHLAMYDIA, NAAT (test code = 70196) NEGATIVE [id number] 00:00:00 Test Item Value Reference Range Interpretation Comments RPR RESULT (test code = NON-REACTIVE 3501) RPR TITER (test code = 3500) NOT INDIC. TITER [id number] 00:00:00 Test Item Value Reference Range Interpretation Comments RPR RESULT (test code = NON-REACTIVE 3501) RPR TITER (test code = 3500) NOT INDIC. TITER HEMOGLOBIN [id number] 00:00:00 Test Item Value Reference Range Interpretation Comments HEMOGLOBIN A1c (test code = 43685) 5.8 % HEMOGLOBIN [id number] 00:00:00 Test Item Value Reference Range Interpretation Comments HEMOGLOBIN A1c (test code = 71745) 5.8 % LIPID [id number] 00:00:00 Test Item Value Reference Range Interpretation Comments CHOLESTEROL (test code = 2210) 248 MG/DL TRIGLYCERIDES (test code = 2232) 244 MG/DL HDL CHOLESTEROL (test code = 2220) 53 MG/DL CALC LDL CHOL (test code = 2237) 154 MG/DL RISK RATIO LDL/HDL (test code = 2.91 RATIO 2238) COMPREHENSIVE METABOLIC [id number] 00:00:00 Test Item Value Reference Range Interpretation Comments GLUCOSE (test code = 2217) 98 MG/DL BUN (test code = 2208) 20 MG/DL CREATININE (test code = 2214) 0.87 MG/DL eGFR AMER. (test code 83 ML/MIN/1.73 = 76816) eGFR NON- AMER. (test 71 ML/MIN/1.73 code = 35927) CALC BUN/CREAT (test code = 23 RATIO 2235) SODIUM (test code = 2231) 137 MEQ/L POTASSIUM (test code = 2228) 4.8 MEQ/L CHLORIDE (test code = 2215) 98 MEQ/L CARBON DIOXIDE (test code = 27 MEQ/L 2205) CALCIUM (test code = 2209) 9.5 MG/DL PROTEIN, TOTAL (test code = 8.3 G/DL 2228) ALBUMIN (test code = 2201) 4.4 G/DL CALC GLOBULIN (test code = 3.9 G/DL 0) CALC A/G RATIO (test code = 1.1 RATIO 4) BILIRUBIN, TOTAL (test code = 0.3 MG/DL 2206) ALKALINE PHOSPHATASE (test 99 U/L code = 2204) AST (test code = 2218) 18 U/L ALT (test code = 2219) 15 U/L [id number] 00:00:00 Test Item Value Reference Range Interpretation Comments RPR RESULT (test code = NON-REACTIVE 3501) RPR TITER (test code = 3500) NOT INDIC. TITER [id number] 00:00:00 Test Item Value Reference Range Interpretation Comments RPR RESULT (test code = NON-REACTIVE 3501) RPR TITER (test code = 3500) NOT INDIC. TITER HEMOGLOBIN [id number] 00:00:00 Test Item Value Reference Range Interpretation Comments HEMOGLOBIN A1c (test code = 27306) 5.8 % HEMOGLOBIN [id number] 00:00:00 Test Item Value Reference Range Interpretation Comments HEMOGLOBIN A1c (test code = 73652) 5.8 % LIPID [id number] 00:00:00 Test Item Value Reference Range Interpretation Comments CHOLESTEROL (test code = 2210) 248 MG/DL TRIGLYCERIDES (test code = 2232) 244 MG/DL HDL CHOLESTEROL (test code = 2220) 53 MG/DL CALC LDL CHOL (test code = 2237) 154 MG/DL RISK RATIO LDL/HDL (test code = 2.91 RATIO 2238) COMPREHENSIVE METABOLIC [id number] 00:00:00 Test Item Value Reference Range Interpretation Comments GLUCOSE (test code = 2217) 98 MG/DL BUN (test code = 2208) 20 MG/DL CREATININE (test code = 2214) 0.87 MG/DL eGFR AMER. (test code 83 ML/MIN/1.73 = 54270) eGFR NON- AMER. (test 71 ML/MIN/1.73 code = 33599) CALC BUN/CREAT (test code = 23 RATIO 2235) SODIUM (test code = 2231) 137 MEQ/L POTASSIUM (test code = 2228) 4.8 MEQ/L CHLORIDE (test code = 2215) 98 MEQ/L CARBON DIOXIDE (test code = 27 MEQ/L 2205) CALCIUM (test code = 2209) 9.5 MG/DL PROTEIN, TOTAL (test code = 8.3 G/DL 2228) ALBUMIN (test code = 2201) 4.4 G/DL CALC GLOBULIN (test code = 3.9 G/DL 2240) CALC A/G RATIO (test code = 1.1 RATIO 2233) BILIRUBIN, TOTAL (test code = 0.3 MG/DL 2206) ALKALINE PHOSPHATASE (test 99 U/L code = 2204) AST (test code = 2218) 18 U/L ALT (test code = 2219) 15 U/L LIPID [id number] 00:00:00 Test Item Value Reference Range Interpretation Comments CHOLESTEROL (test code = 2210) 273 MG/DL TRIGLYCERIDES (test code = 2232) 229 MG/DL HDL CHOLESTEROL (test code = 2220) 54 MG/DL CALC LDL CHOL (test code = 2237) 173 MG/DL RISK RATIO LDL/HDL (test code = 3.21 RATIO 2238) LIPID [id number] 00:00:00 Test Item Value Reference Range Interpretation Comments CHOLESTEROL (test code = 2210) 273 MG/DL TRIGLYCERIDES (test code = 2232) 229 MG/DL HDL CHOLESTEROL (test code = 2220) 54 MG/DL CALC LDL CHOL (test code = 2237) 173 MG/DL RISK RATIO LDL/HDL (test code = 3.21 RATIO 2238) HEMOGLOBIN [id number] 00:00:00 Test Item Value Reference Range Interpretation Comments HEMOGLOBIN A1c (test code = 64623) 5.5 % HEMOGLOBIN [id number] 00:00:00 Test Item Value Reference Range Interpretation Comments HEMOGLOBIN A1c (test code = 31316) 5.5 % COMPREHENSIVE METABOLIC [id number] 00:00:00 Test Item Value Reference Range Interpretation Comments GLUCOSE (test code = 2217) 96 MG/DL BUN (test code = 2208) 20 MG/DL CREATININE (test code = 2214) 0.82 MG/DL eGFR AMER. (test code 90 ML/MIN/1.73 = 00172) eGFR NON- AMER. (test 77 ML/MIN/1.73 code = 76099) CALC BUN/CREAT (test code = 24 RATIO 2235) SODIUM (test code = 2231) 143 MEQ/L POTASSIUM (test code = 2228) 5.4 MEQ/L CHLORIDE (test code = 2215) 100 MEQ/L CARBON DIOXIDE (test code = 30 MEQ/L 2205) CALCIUM (test code = 2209) 9.5 MG/DL PROTEIN, TOTAL (test code = 7.9 G/DL 2228) ALBUMIN (test code = 2201) 4.3 G/DL CALC GLOBULIN (test code = 3.6 G/DL 0) CALC A/G RATIO (test code = 1.2 RATIO 2234) BILIRUBIN, TOTAL (test code = 0.3 MG/DL 2206) ALKALINE PHOSPHATASE (test 110 U/L code = 2204) AST (test code = 2218) 16 U/L ALT (test code = 2219) 12 U/L HEMOGLOBIN [id number] 00:00:00 Test Item Value Reference Range Interpretation Comments HEMOGLOBIN A1c (test code = 14820) 5.5 % HEMOGLOBIN [id number] 00:00:00 Test Item Value Reference Range Interpretation Comments HEMOGLOBIN A1c (test code = 36278) 5.5 % COMPREHENSIVE METABOLIC [id number] 00:00:00 Test Item Value Reference Range Interpretation Comments GLUCOSE (test code = 2217) 96 MG/DL BUN (test code = 2208) 20 MG/DL CREATININE (test code = 2214) 0.82 MG/DL eGFR AMER. (test code 90 ML/MIN/1.73 = 29635) eGFR NON- AMER. (test 77 ML/MIN/1.73 code = 91535) CALC BUN/CREAT (test code = 24 RATIO 2235) SODIUM (test code = 2231) 143 MEQ/L POTASSIUM (test code = 2228) 5.4 MEQ/L CHLORIDE (test code = 2215) 100 MEQ/L CARBON DIOXIDE (test code = 30 MEQ/L 2205) CALCIUM (test code = 2209) 9.5 MG/DL PROTEIN, TOTAL (test code = 7.9 G/DL 2228) ALBUMIN (test code = 2201) 4.3 G/DL CALC GLOBULIN (test code = 3.6 G/DL 2239) CALC A/G RATIO (test code = 1.2 RATIO 4) BILIRUBIN, TOTAL (test code = 0.3 MG/DL 2206) ALKALINE PHOSPHATASE (test 110 U/L code = 2204) AST (test code = 2218) 16 U/L ALT (test code = 2219) 12 U/L LIPID [id number] 00:00:00 Test Item Value Reference Range Interpretation Comments CHOLESTEROL (test code = 2210) 226 MG/DL TRIGLYCERIDES (test code = 2232) 389 MG/DL HDL CHOLESTEROL (test code = 2220) 48 MG/DL CALC LDL CHOL (test code = 2237) 100 MG/DL RISK RATIO LDL/HDL (test code = 2.09 RATIO 2238) LIPID [id number] 00:00:00 Test Item Value Reference Range Interpretation Comments CHOLESTEROL (test code = 2210) 226 MG/DL TRIGLYCERIDES (test code = 2232) 389 MG/DL HDL CHOLESTEROL (test code = 2220) 48 MG/DL CALC LDL CHOL (test code = 2237) 100 MG/DL RISK RATIO LDL/HDL (test code = 2.09 RATIO 2238) HEMOGLOBIN [id number] 00:00:00 Test Item Value Reference Range Interpretation Comments HEMOGLOBIN A1c (test code = 19494) 5.7 % HEMOGLOBIN [id number] 00:00:00 Test Item Value Reference Range Interpretation Comments HEMOGLOBIN A1c (test code = 03556) 5.7 % COMPREHENSIVE METABOLIC [id number] 00:00:00 Test Item Value Reference Range Interpretation Comments GLUCOSE (test code = 2217) 93 MG/DL BUN (test code = 2208) 22 MG/DL CREATININE (test code = 2214) 0.86 MG/DL eGFR AMER. (test code 85 ML/MIN/1.73 = 15297) eGFR NON- AMER. (test 73 ML/MIN/1.73 code = 25311) CALC BUN/CREAT (test code = 26 RATIO 2235) SODIUM (test code = 2231) 141 MEQ/L POTASSIUM (test code = 2228) 5.2 MEQ/L CHLORIDE (test code = 2215) 98 MEQ/L CARBON DIOXIDE (test code = 28 MEQ/L 2206) CALCIUM (test code = 2209) 8.9 MG/DL PROTEIN, TOTAL (test code = 7.4 G/DL 2228) ALBUMIN (test code = 2201) 4.2 G/DL CALC GLOBULIN (test code = 3.2 G/DL 2240) CALC A/G RATIO (test code = 1.3 RATIO 2234) BILIRUBIN, TOTAL (test code = 0.3 MG/DL 2206) ALKALINE PHOSPHATASE (test 98 U/L code = 2204) AST (test code = 2218) 12 U/L ALT (test code = 2219) 14 U/L HEMOGLOBIN [id number] 00:00:00 Test Item Value Reference Range Interpretation Comments HEMOGLOBIN A1c (test code = 92428) 5.7 % HEMOGLOBIN [id number] 00:00:00 Test Item Value Reference Range Interpretation Comments HEMOGLOBIN A1c (test code = 43702) 5.7 % COMPREHENSIVE METABOLIC [id number] 00:00:00 Test Item Value Reference Range Interpretation Comments GLUCOSE (test code = 2217) 93 MG/DL BUN (test code = 2208) 22 MG/DL CREATININE (test code = 2214) 0.86 MG/DL eGFR AMER. (test code 85 ML/MIN/1.73 = 34951) eGFR NON- AMER. (test 73 ML/MIN/1.73 code = 86495) CALC BUN/CREAT (test code = 26 RATIO 2235) SODIUM (test code = 2231) 141 MEQ/L POTASSIUM (test code = 2228) 5.2 MEQ/L CHLORIDE (test code = 2215) 98 MEQ/L CARBON DIOXIDE (test code = 28 MEQ/L 2206) CALCIUM (test code = 2209) 8.9 MG/DL PROTEIN, TOTAL (test code = 7.4 G/DL 2229) ALBUMIN (test code = 2201) 4.2 G/DL CALC GLOBULIN (test code = 3.2 G/DL 2240) CALC A/G RATIO (test code = 1.3 RATIO 2234) BILIRUBIN, TOTAL (test code = 0.3 MG/DL 220) ALKALINE PHOSPHATASE (test 98 U/L code = 2204) AST (test code = 2218) 12 U/L ALT (test code = 2219) 14 U/L TISSUE [id number] 09:23:00Surgical Pathology Report Case: [id number] Authorizing Provider: Kristi Caballero MD Collected: 12/06/2018 1605 Ordering Location: [facility] Received: 12/07/2018 0848 SERVICES Pathologist: Seferino Louis MD Specimen: Gallbladder A. GALLBLADDER, CHOLECYSTECTOMY: - CHRONIC CHOLECYSTITISWITH CHOLELITHIASIS - NEGATIVE FOR DYSPLASIA OR MALIGNANCY Signing Pathologist Direct Phone Line: [phone] signed by Seferino Louis MD on 12/10/2018 at 9:23 [id number] and postop diagnosis: choledocholithiasisGallbladderReceived fresh labeled with [...] displays cholesterolosis. A cystic duct lymph node isnot present. The wall thickness is 0.1 cm. No gross lesions are identified. Manager Process Improvement sections are submitted. Section code: A1, cystic duct margin en face; A2, gallbladder wall. CG/pl Performed.HEPATIC FUNCTION [id number] 06:05:00 Test Item Value Reference Range Interpretation Comments TOTAL PROTEIN (BEAKER) (test code = 8.0 gm/dL 6.0-8.3 770) ALBUMIN (BEAKER) (test code = 1145) 3.6 g/dL 3.5-5.0 BILIRUBIN TOTAL (BEAKER) (test code 0.7 mg/dL 0.2-1.2 = 377) BILIRUBIN DIRECT (BEAKER) (test 0.4 mg/dL 0.1-0.5 code = 706) ALKALINE PHOSPHATASE (BEAKER) (test 176 U/L 40-150 H code = 346) AST (SGOT) (BEAKER) (test code = 41 U/L 5-34 H 353) ALT (SGPT) (BEAKER) (test code = 88 U/L 6-55 H 347) BASIC METABOLIC [id number] 06:05:00 Test Item Value Reference Range Interpretation Comments SODIUM (BEAKER) 138 meq/L 136-145 (test code = 381) POTASSIUM (BEAKER) 3.7 meq/L 3.5-5.1 (test code = 379) CHLORIDE (BEAKER) 104 meq/L 98-107 (test code = 382) CO2 (BEAKER) (test 23 meq/L 22-29 code = 355) BLOOD UREA NITROGEN 9 mg/dL 7-21 (BEAKER) (test code = 354) CREATININE (BEAKER) 0.74 mg/dL 0.57-1.25 (test code = 358) GLUCOSE RANDOM 105 mg/dL 70-105 (BEAKER) (test code = 652) CALCIUM (BEAKER) 8.3 mg/dL 8.4-10.2 L (test code = 697) EGFR (BEAKER) (test 80 mL/min/1.73 ESTIMA LIZ GFR IS code = 1092) sq m NOT ACCURATE CREATININE CLEARANCE IN PREDICTING GLOMERULAR FILTRATION RATE . ESTIMATED GFR I S NOT APPLICABLE FOR DIALYSIS PATIEN TS. CBC W/PLT COUNT & AUTO [id number] 05:28:00 Test Item Value Reference Range Interpretation Comments WHITE BLOOD CELL COUNT (BEAKER) 16.6 K/ L 3.5-10.5 H (test code = 775) RED BLOOD CELL COUNT (BEAKER) 4.71 M/ L 3.93-5.22 (test code = 761) HEMOGLOBIN (BEAKER) (test code = 13.7 GM/DL 11.2-15.7 410) HEMATOCRIT (BEAKER) (test code = 43.1 % 34.1-44.9 411) MEAN CORPUSCULAR VOLUME (BEAKER) 91.5 fL 79.4-94.8 (test code = 753) MEAN CORPUSCULAR HEMOGLOBIN 29.1 pg 25.6-32.2 (BEAKER) (test code = 751) MEAN CORPUSCULAR HEMOGLOBIN CONC 31.8 GM/DL 32.2-35.5 L (BEAKER) (test code = 752) RED CELL DISTRIBUTION WIDTH 14.7 % 11.7-14.4 H (BEAKER) (test code = 412) PLATELET COUNT (BEAKER) (test 348 K/CU MM 150-450 code = 756) MEAN PLATELET VOLUME (BEAKER) 10.6 fL 9.4-12.3 (test code = 754) NUCLEATED RED BLOOD CELLS 0 /100 WBC 0-0 (BEAKER) (test code = 413) NEUTROPHILS RELATIVE PERCENT 86 % (BEAKER) (test code = 429) LYMPHOCYTES RELATIVE PERCENT 8 % (BEAKER) (test code = 430) MONOCYTES RELATIVE PERCENT 5 % (BEAKER) (test code = 431) EOSINOPHILS RELATIVE PERCENT 0 % (BEAKER) (test code = 432) BASOPHILS RELATIVE PERCENT 0 % (BEAKER) (test code = 437) NEUTROPHILS ABSOLUTE COUNT 14.26 K/ L 1.56-6.13 H (BEAKER) (test code = 670) LYMPHOCYTES ABSOLUTE COUNT 1.35 K/ L 1.18-3.74 (BEAKER) (test code = 414) MONOCYTES ABSOLUTE COUNT (BEAKER) 0.90 K/ L 0.24-0.36 H (test code = 415) EOSINOPHILS ABSOLUTE COUNT 0.01 K/ L 0.04-0.36 L (BEAKER) (test code = 416) BASOPHILS ABSOLUTE COUNT (BEAKER) 0.03 K/ L 0.01-0.08 (test code = 417) IMMATURE GRANULOCYTES-RELATIVE 1 % 0-1 PERCENT (BEAKER) (test code = 2801) HEPATIC FUNCTION [id number] 09:17:00 Test Item Value Reference Range Interpretation Comments TOTAL PROTEIN (BEAKER) (test code = 7.9 gm/dL 6.0-8.3 770) ALBUMIN (BEAKER) (test code = 1145) 3.7 g/dL 3.5-5.0 BILIRUBIN TOTAL (BEAKER) (test code 0.8 mg/dL 0.2-1.2 = 377) BILIRUBIN DIRECT (BEAKER) (test 0.5 mg/dL 0.1-0.5 code = 706) ALKALINE PHOSPHATASE (BEAKER) (test 211 U/L 40-150 H code = 346) AST (SGOT) (BEAKER) (test code = 37 U/L 5-34 H 353) ALT (SGPT) (BEAKER) (test code = 122 U/L 6-55 H 347) BASIC METABOLIC [id number] 07:39:00 Test Item Value Reference Range Interpretation Comments SODIUM (BEAKER) 138 meq/L 136-145 (test code = 381) POTASSIUM (BEAKER) 4.2 meq/L 3.5-5.1 (test code = 379) CHLORIDE (BEAKER) 104 meq/L 98-107 (test code = 382) CO2 (BEAKER) (test 29 meq/L 22-29 code = 355) BLOOD UREA NITROGEN 13 mg/dL 7-21 (BEAKER) (test code = 354) CREATININE (BEAKER) 0.78 mg/dL 0.57-1.25 (test code = 358) GLUCOSE RANDOM 81 mg/dL 70-105 (BEAKER) (test code = 652) CALCIUM (BEAKER) 9.1 mg/dL 8.4-10.2 (test code = 697) EGFR (BEAKER) (test 75 mL/min/1.73 ESTIMA LIZ GFR IS code = 1092) sq m NOT ACCURATE CREATININE CLEARANCE IN PREDICTING GLOMERULAR FILTRATION RATE . ESTIMATED GFR I S NOT APPLICABLE FOR DIALYSIS PATIEN TS. PROTHROMBIN [id number] 06:55:00 Test Item Value Reference Range Interpretation Comments PROTIME (BEAKER) (test code = 13.1 seconds 11.9-14.2 759) INR (BEAKER) (test code = 370) 1.0 <=5.9 Effective 10/03/2018: PT Reference Range ChangeNew: 11.9-14.2 Previous: 11.7- 14.7RECOMMENDED COUMADIN/WARFARIN INR THERAPY RANGESSTANDARD DOSE: 2.0-3.0 Includes: PROPHYLAXIS for venous thrombosis, systemic embolization; TREATMENT for venous thrombosis and/or pulmonary embolus.HIGH RISK: Target INR is 2.5-3.5 for patients wiht mechanical heart valves.CBC W/PLT COUNT & AUTO [id number] 06:50:00 Test Item Value Reference Range Interpretation Comments WHITE BLOOD CELL COUNT (BEAKER) 7.0 K/ L 3.5-10.5 (test code = 775) RED BLOOD CELL COUNT (BEAKER) 4.84 M/ L 3.93-5.22 (test code = 761) HEMOGLOBIN (BEAKER) (test code = 13.8 GM/DL 11.2-15.7 410) HEMATOCRIT (BEAKER) (test code = 43.9 % 34.1-44.9 411) MEAN CORPUSCULAR VOLUME (BEAKER) 90.7 fL 79.4-94.8 (test code = 753) MEAN CORPUSCULAR HEMOGLOBIN 28.5 pg 25.6-32.2 (BEAKER) (test code = 751) MEAN CORPUSCULAR HEMOGLOBIN CONC 31.4 GM/DL 32.2-35.5 L (BEAKER) (test code = 752) RED CELL DISTRIBUTION WIDTH 14.4 % 11.7-14.4 (BEAKER) (test code = 412) PLATELET COUNT (BEAKER) (test 353 K/CU MM 150-450 code = 756) MEAN PLATELET VOLUME (BEAKER) 10.7 fL 9.4-12.3 (test code = 754) NUCLEATED RED BLOOD CELLS 0 /100 WBC 0-0 (BEAKER) (test code = 413) NEUTROPHILS RELATIVE PERCENT 50 % (BEAKER) (test code = 429) LYMPHOCYTES RELATIVE PERCENT 38 % (BEAKER) (test code = 430) MONOCYTES RELATIVE PERCENT 9 % (BEAKER) (test code = 431) EOSINOPHILS RELATIVE PERCENT 2 % (BEAKER) (test code = 432) BASOPHILS RELATIVE PERCENT 1 % (BEAKER) (test code = 437) NEUTROPHILS ABSOLUTE COUNT 3.48 K/ L 1.56-6.13 (BEAKER) (test code = 670) LYMPHOCYTES ABSOLUTE COUNT 2.68 K/ L 1.18-3.74 (BEAKER) (test code = 414) MONOCYTES ABSOLUTE COUNT (BEAKER) 0.62 K/ L 0.24-0.36 H (test code = 415) EOSINOPHILS ABSOLUTE COUNT 0.16 K/ L 0.04-0.36 (BEAKER) (test code = 416) BASOPHILS ABSOLUTE COUNT (BEAKER) 0.04 K/ L 0.01-0.08 (test code = 417) IMMATURE GRANULOCYTES-RELATIVE 0 % 0-1 PERCENT (BEAKER) (test code = 2801) HEPATIC FUNCTION [id number] 05:13:00 Test Item Value Reference Range Interpretation Comments TOTAL PROTEIN (BEAKER) (test code = 7.5 gm/dL 6.0-8.3 770) ALBUMIN (BEAKER) (test code = 1145) 3.5 g/dL 3.5-5.0 BILIRUBIN TOTAL (BEAKER) (test code 1.2 mg/dL 0.2-1.2 = 377) BILIRUBIN DIRECT (BEAKER) (test 0.8 mg/dL 0.1-0.5 H code = 706) ALKALINE PHOSPHATASE (BEAKER) (test 239 U/L 40-150 H code = 346) AST (SGOT) (BEAKER) (test code = 89 U/L 5-34 H 353) ALT (SGPT) (BEAKER) (test code = 180 U/L 6-55 H 347) BASIC METABOLIC [id number] 05:13:00 Test Item Value Reference Range Interpretation Comments SODIUM (BEAKER) 137 meq/L 136-145 (test code = 381) POTASSIUM (BEAKER) 3.6 meq/L 3.5-5.1 (test code = 379) CHLORIDE (BEAKER) 106 meq/L 98-107 (test code = 382) CO2 (BEAKER) (test 22 meq/L 22-29 code = 355) BLOOD UREA NITROGEN 18 mg/dL 7-21 (BEAKER) (test code = 354) CREATININE (BEAKER) 0.74 mg/dL 0.57-1.25 (test code = 358) GLUCOSE RANDOM 70 mg/dL 70-105 (BEAKER) (test code = 652) CALCIUM (BEAKER) 8.8 mg/dL 8.4-10.2 (test code = 697) EGFR (BEAKER) (test 80 mL/min/1.73 ESTIMA LIZ GFR IS code = 1092) sq m NOT ACCURATE CREATININE CLEARANCE IN PREDICTING GLOMERULAR FILTRATION RATE . ESTIMATED GFR I S NOT APPLICABLE FOR DIALYSIS PATIEN TS. PROTHROMBIN [id number] 04:54:00 Test Item Value Reference Range Interpretation Comments PROTIME (BEAKER) (test code = 16.3 seconds 11.9-14.2 H 759) INR (BEAKER) (test code = 370) 1.4 <=5.9 Effective 10/03/2018: PT Reference Range ChangeNew: 11.9-14.2 Previous: 11.7- 14.7RECOMMENDED COUMADIN/WARFARIN INR THERAPY RANGESSTANDARD DOSE: 2.0-3.0 Includes: PROPHYLAXIS for venous thrombosis, systemic embolization; TREATMENT for venous thrombosis and/or pulmonary embolus.HIGH RISK: Target INR is 2.5-3.5 for patients wiht mechanical heart valves.CBC W/PLT COUNT & AUTO [id number] 04:46:00 Test Item Value Reference Range Interpretation Comments WHITE BLOOD CELL COUNT (BEAKER) 8.4 K/ L 3.5-10.5 (test code = 775) RED BLOOD CELL COUNT (BEAKER) 4.78 M/ L 3.93-5.22 (test code = 761) HEMOGLOBIN (BEAKER) (test code = 13.7 GM/DL 11.2-15.7 410) HEMATOCRIT (BEAKER) (test code = 43.1 % 34.1-44.9 411) MEAN CORPUSCULAR VOLUME (BEAKER) 90.2 fL 79.4-94.8 (test code = 753) MEAN CORPUSCULAR HEMOGLOBIN 28.7 pg 25.6-32.2 (BEAKER) (test code = 751) MEAN CORPUSCULAR HEMOGLOBIN CONC 31.8 GM/DL 32.2-35.5 L (BEAKER) (test code = 752) RED CELL DISTRIBUTION WIDTH 14.0 % 11.7-14.4 (BEAKER) (test code = 412) PLATELET COUNT (BEAKER) (test 260 K/CU MM 150-450 code = 756) MEAN PLATELET VOLUME (BEAKER) 11.3 fL 9.4-12.3 (test code = 754) NUCLEATED RED BLOOD CELLS 0 /100 WBC 0-0 (BEAKER) (test code = 413) NEUTROPHILS RELATIVE PERCENT 65 % (BEAKER) (test code = 429) LYMPHOCYTES RELATIVE PERCENT 24 % (BEAKER) (test code = 430) MONOCYTES RELATIVE PERCENT 8 % (BEAKER) (test code = 431) EOSINOPHILS RELATIVE PERCENT 1 % (BEAKER) (test code = 432) BASOPHILS RELATIVE PERCENT 1 % (BEAKER) (test code = 437) NEUTROPHILS ABSOLUTE COUNT 5.48 K/ L 1.56-6.13 (BEAKER) (test code = 670) LYMPHOCYTES ABSOLUTE COUNT 2.04 K/ L 1.18-3.74 (BEAKER) (test code = 414) MONOCYTES ABSOLUTE COUNT (BEAKER) 0.70 K/ L 0.24-0.36 H (test code = 415) EOSINOPHILS ABSOLUTE COUNT 0.10 K/ L 0.04-0.36 (BEAKER) (test code = 416) BASOPHILS ABSOLUTE COUNT (BEAKER) 0.05 K/ L 0.01-0.08 (test code = 417) IMMATURE GRANULOCYTES-RELATIVE 0 % 0-1 PERCENT (BEAKER) (test code = 2801) [place], [id number] 19:40:00Reason for exam:->bile duct obstruction, in support [...] the physician who performed the procedure. Signed: Micheal Saavedra [facility] [place] Verified Date/Time: 12/04/2018 19:40:22 Reading Location: [address] Consult Reading Room MR, ABDOMEN, [id number] 15:18:00FINAL REPORT TECHNIQUE: MRI of the abdomen and MRCP WITHOUT intravenous contrast. 3-D volume reconstructions were obtained to evaluate the [...] or wall thickening. BONES AND SOFT TISSUES: Unremarkable. IMPR ESSION:Cholelithiasis. No specific evidence of acute cholecystitis. The common bile duct is at the upper limit of normal in caliber without choledocholithiasis. Minimal prominence of the intrahepatic bile ducts. Signed: Gabriel Henson MDReport Verified Date/Time: 12/04/2018 15:18:56 Reading Location:[address] Body Reading Room [facility] METABOLIC [id number] 08:37:00 Test Item Value Reference Range Interpretation Comments SODIUM (BEAKER) 137 meq/L 136-145 (test code = 381) POTASSIUM (BEAKER) 4.3 meq/L 3.5-5.1 Specimen moderately (test code = 379) hemolyzed CHLORIDE (BEAKER) 103 meq/L 98-107 (test code = 382) CO2 (BEAKER) (test 26 meq/L 22-29 code = 355) BLOOD UREA NITROGEN 10 mg/dL 7-21 (BEAKER) (test code = 354) CREATININE (BEAKER) 0.79 mg/dL 0.57-1.25 Specimen moderately (test code = 358) hemolyzed GLUCOSE RANDOM 93 mg/dL 70-105 (BEAKER) (test code = 652) CALCIUM (BEAKER) 8.9 mg/dL 8.4-10.2 (test code = 697) EGFR (BEAKER) (test 74 mL/min/1.73 ESTIMA LIZ GFR IS code = 1092) sq m NOT ACCURATE CREATININE CLEARANCE IN PREDICTING GLOMERULAR FILTRATION RATE . ESTIMATED GFR I S NOT APPLICABLE FOR DIALYSIS PATIEN TS. Specimen slightly ictericLIPID [id number] 08:37:00 Test Item Value Reference Range Interpretation Comments TRIGLYCERIDES (BEAKER) 51 mg/dL Speci men moderately (test code = 540) hemolyzed CHOLESTEROL (BEAKER) 158 mg/dL Specime n moderately (test code = 631) hemolyzed HDL CHOLESTEROL (BEAKER) 65 mg/dL (test code = 976) LDL CHOLESTEROL 83 mg/dL CALCULATED (BEAKER) (test code = 633) Triglyceride Reference Range: Low Risk <150 Borderline 150-199 High Risk 200-499 Very High Risk >=500Cholesterol Reference Range: Low Risk <200 Borderline 200-239 High Risk >240HDL Cholesterol Reference Range: Low Risk >=60 High Risk <40LDL Cholesterol Reference Range: Optimal <100 Near Optimal 100-129 Borderline 130-159 High 160-189 Very High >=190 Specimen slightly ictericHEPATIC FUNCTION [id number] 08:37:00 Test Item Value Reference Range Interpretation Comments TOTAL PROTEIN (BEAKER) 8.3 gm/dL 6.0-8.3 Speci men moderately (test code = 770) hemolyzed ALBUMIN (BEAKER) (test 3.7 g/dL 3.5-5.0 Speci men moderately code = 1145) hemolyzed BILIRUBIN TOTAL 4.4 mg/dL 0.2-1.2 H Specimen mod erately (BEAKER) (test code = hemoly zed 377) BILIRUBIN DIRECT 2.3 mg/dL 0.1-0.5 H Specimen mo derately (BEAKER) (test code = hemoly zed 706) ALKALINE PHOSPHATASE 274 U/L 40-150 H (BEAKER) (test code = 346) AST (SGOT) (BEAKER) 245 U/L 5-34 H Specimen moderately (test code = 353) hemolyzed ALT (SGPT) (BEAKER) 271 U/L 6-55 H Specimen moderately (test code = 347) hemolyzed Specimen slightly ictericPROTHROMBIN [id number] 08:12:00 Test Item Value Reference Range Interpretation Comments PROTIME (BEAKER) (test code = 14.8 seconds 11.9-14.2 H 759) INR (BEAKER) (test code = 370) 1.2 <=5.9 Effective 10/03/2018: PT Reference Range ChangeNew: 11.9-14.2 Previous: 11.7- 14.7RECOMMENDED COUMADIN/WARFARIN INR THERAPY RANGESSTANDARD DOSE: 2.0-3.0 Includes: PROPHYLAXIS for venous thrombosis, systemic embolization; TREATMENT for venous thrombosis and/or pulmonary embolus.HIGH RISK: Target INR is 2.5-3.5 for patients wiht mechanical heart valves.CBC W/PLT COUNT & AUTO [id number] 08:11:00 Test Item Value Reference Range Interpretation Comments WHITE BLOOD CELL COUNT (BEAKER) 11.9 K/ L 3.5-10.5 H (test code = 775) RED BLOOD CELL COUNT (BEAKER) 4.81 M/ L 3.93-5.22 (test code = 761) HEMOGLOBIN (BEAKER) (test code = 13.7 GM/DL 11.2-15.7 410) HEMATOCRIT (BEAKER) (test code = 43.3 % 34.1-44.9 411) MEAN CORPUSCULAR VOLUME (BEAKER) 90.0 fL 79.4-94.8 (test code = 753) MEAN CORPUSCULAR HEMOGLOBIN 28.5 pg 25.6-32.2 (BEAKER) (test code = 751) MEAN CORPUSCULAR HEMOGLOBIN CONC 31.6 GM/DL 32.2-35.5 L (BEAKER) (test code = 752) RED CELL DISTRIBUTION WIDTH 14.4 % 11.7-14.4 (BEAKER) (test code = 412) PLATELET COUNT (BEAKER) (test 295 K/CU MM 150-450 code = 756) MEAN PLATELET VOLUME (BEAKER) 11.2 fL 9.4-12.3 (test code = 754) NUCLEATED RED BLOOD CELLS 0 /100 WBC 0-0 (BEAKER) (test code = 413) NEUTROPHILS RELATIVE PERCENT 79 % (BEAKER) (test code = 429) LYMPHOCYTES RELATIVE PERCENT 11 % (BEAKER) (test code = 430) MONOCYTES RELATIVE PERCENT 10 % (BEAKER) (test code = 431) EOSINOPHILS RELATIVE PERCENT 0 % (BEAKER) (test code = 432) BASOPHILS RELATIVE PERCENT 0 % (BEAKER) (test code = 437) NEUTROPHILS ABSOLUTE COUNT 9.39 K/ L 1.56-6.13 H (BEAKER) (test code = 670) LYMPHOCYTES ABSOLUTE COUNT 1.26 K/ L 1.18-3.74 (BEAKER) (test code = 414) MONOCYTES ABSOLUTE COUNT (BEAKER) 1.17 K/ L 0.24-0.36 H (test code = 415) EOSINOPHILS ABSOLUTE COUNT 0.02 K/ L 0.04-0.36 L (BEAKER) (test code = 416) BASOPHILS ABSOLUTE COUNT (BEAKER) 0.05 K/ L 0.01-0.08 (test code = 417) IMMATURE GRANULOCYTES-RELATIVE 0 % 0-1 PERCENT (BEAKER) (test code = 2801) COMPREHENSIVE METABOLIC [id number] 00:00:00 Test Item Value Reference Range Interpretation Comments GLUCOSE (test code = 2217) 87 MG/DL BUN (test code = 2208) 14 MG/DL CREATININE (test code = 2214) 0.80 MG/DL eGFR AMER. (test code 95 ML/MIN/1.73 = 34416) eGFR NON- AMER. (test 82 ML/MIN/1.73 code = 15183) CALCULATED BUN/CREAT (test 18 RATIO code = 2235) SODIUM (test code = 2231) 138 MEQ/L POTASSIUM (test code = 2228) 4.5 MEQ/L CHLORIDE (test code = 2215) 98 MEQ/L CARBON DIOXIDE (test code = 28 MEQ/L 2206) CALCIUM (test code = 2209) 9.7 MG/DL PROTEIN, TOTAL (test code = 8.7 G/DL 2228) ALBUMIN (test code = 2201) 4.4 G/DL CALCULATED GLOBULIN (test code 4.3 G/DL = 2240) CALCULATED A/G RATIO (test 1.0 RATIO code = 2234) BILIRUBIN, TOTAL (test code = 0.3 MG/DL 220) ALKALINE PHOSPHATASE (test 97 U/L code = 2204) SGOT (AST) (test code = 2218) 14 U/L SGPT (ALT) (test code = 2219) 10 U/L COMPREHENSIVE METABOLIC [id number] 00:00:00 Test Item Value Reference Range Interpretation Comments GLUCOSE (test code = 2217) 87 MG/DL BUN (test code = 2208) 14 MG/DL CREATININE (test code = 2214) 0.80 MG/DL eGFR AMER. (test code 95 ML/MIN/1.73 = 28389) eGFR NON- AMER. (test 82 ML/MIN/1.73 code = 50193) CALCULATED BUN/CREAT (test 18 RATIO code = 2235) SODIUM (test code = 2231) 138 MEQ/L POTASSIUM (test code = 2228) 4.5 MEQ/L CHLORIDE (test code = 2215) 98 MEQ/L CARBON DIOXIDE (test code = 28 MEQ/L 220) CALCIUM (test code = 2209) 9.7 MG/DL PROTEIN, TOTAL (test code = 8.7 G/DL 2228) ALBUMIN (test code = 2201) 4.4 G/DL CALCULATED GLOBULIN (test code 4.3 G/DL = 2240) CALCULATED A/G RATIO (test 1.0 RATIO code = 2234) BILIRUBIN, TOTAL (test code = 0.3 MG/DL 2206) ALKALINE PHOSPHATASE (test 97 U/L code = 2204) SGOT (AST) (test code = 2218) 14 U/L SGPT (ALT) (test code = 2219) 10 U/L LIPID [id number] 00:00:00 Test Item Value Reference Range Interpretation Comments CHOLESTEROL (test code = 2210) 264 MG/DL TRIGLYCERIDES (test code = 2232) 195 MG/DL HDL CHOLESTEROL (test code = 2220) 60 MG/DL CALCULATED LDL CHOL (test code = 165 MG/DL 2236) RISK RATIO LDL/HDL (test code = 2.75 RATIO 2238) CBC W/AUTO [id number] 00:00:00 Test Item Value Reference Range Interpretation Comments WBC (test code = 1001) 8.2 K/UL RBC (test code = 1002) 4.76 M/UL HEMOGLOBIN (test code = 1003) 13.6 G/DL HEMATOCRIT (test code = 1004) 40.9 % MCV (test code = 1005) 85.9 fL MCH (test code = 1006) 28.6 PG MCHC (test code = 1007) 33.3 G/DL RDW (test code = 1038) 14.4 % NEUTROPHILS (test code = 1008) 55 % LYMPHOCYTES (test code = 1010) 36 % MONOCYTES (test code = 1011) 6 % EOSINOPHILS (test code = 1012) 2 % BASOPHILS (test code = 1013) 1 % PLATELET COUNT (test code = 1015) 418 K/UL CBC W/AUTO [id number] 00:00:00 Test Item Value Reference Range Interpretation Comments WBC (test code = 1001) 8.2 K/UL RBC (test code = 1002) 4.76 M/UL HEMOGLOBIN (test code = 1003) 13.6 G/DL HEMATOCRIT (test code = 1004) 40.9 % MCV (test code = 1005) 85.9 fL MCH (test code = 1006) 28.6 PG MCHC (test code = 1007) 33.3 G/DL RDW (test code = 1038) 14.4 % NEUTROPHILS (test code = 1008) 55 % LYMPHOCYTES (test code = 1010) 36 % MONOCYTES (test code = 1011) 6 % EOSINOPHILS (test code = 1012) 2 % BASOPHILS (test code = 1013) 1 % PLATELET COUNT (test code = 1015) 418 K/UL LIPID [id number] 00:00:00 Test Item Value Reference Range Interpretation Comments CHOLESTEROL (test code = 2210) 264 MG/DL TRIGLYCERIDES (test code = 2232) 195 MG/DL HDL CHOLESTEROL (test code = 2220) 60 MG/DL CALCULATED LDL CHOL (test code = 165 MG/DL 2237) RISK RATIO LDL/HDL (test code = 2.75 RATIO 2238) HEMOGLOBIN [id number] 00:00:00 Test Item Value Reference Range Interpretation Comments HEMOGLOBIN A1c (test code = 63716) 6.0 % HEMOGLOBIN [id number] 00:00:00 Test Item Value Reference Range Interpretation Comments HEMOGLOBIN A1c (test code = 68337) 6.0 % THYROID II PROFILE (T3U, T4, T7, TSH)[id number] 00:00:00 Test Item Value Reference Range Interpretation Comments T3 UPTAKE (test code = 2817) 26.3 % T4 (THYROXINE) (test code = 2819) 10.1 UG/DL CALCULATED T7 (FTI) (test code = 2.66 2820) TSH (test code = 2821) 1.7 UIU/ML CBC W/AUTO [id number] 00:00:00 Test Item Value Reference Range Interpretation Comments WBC (test code = 1001) 8.2 K/UL RBC (test code = 1002) 4.76 M/UL HEMOGLOBIN (test code = 1003) 13.6 G/DL HEMATOCRIT (test code = 1004) 40.9 % MCV (test code = 1005) 85.9 fL MCH (test code = 1006) 28.6 PG MCHC (test code = 1007) 33.3 G/DL RDW (test code = 1038) 14.4 % NEUTROPHILS (test code = 1008) 55 % LYMPHOCYTES (test code = 1010) 36 % MONOCYTES (test code = 1011) 6 % EOSINOPHILS (test code = 1012) 2 % BASOPHILS (test code = 1013) 1 % PLATELET COUNT (test code = 1015) 418 K/UL CBC W/AUTO [id number] 00:00:00 Test Item Value Reference Range Interpretation Comments WBC (test code = 1001) 8.2 K/UL RBC (test code = 1002) 4.76 M/UL HEMOGLOBIN (test code = 1003) 13.6 G/DL HEMATOCRIT (test code = 1004) 40.9 % MCV (test code = 1005) 85.9 fL MCH (test code = 1006) 28.6 PG MCHC (test code = 1007) 33.3 G/DL RDW (test code = 1038) 14.4 % NEUTROPHILS (test code = 1008) 55 % LYMPHOCYTES (test code = 1010) 36 % MONOCYTES (test code = 1011) 6 % EOSINOPHILS (test code = 1012) 2 % BASOPHILS (test code = 1013) 1 % PLATELET COUNT (test code = 1015) 418 K/UL HEMOGLOBIN [id number] 00:00:00 Test Item Value Reference Range Interpretation Comments HEMOGLOBIN A1c (test code = 22193) 6.0 % HEMOGLOBIN [id number] 00:00:00 Test Item Value Reference Range Interpretation Comments HEMOGLOBIN A1c (test code = 18414) 6.0 % THYROID II PROFILE (T3U, T4, T7, TSH)2015-04-16 00:00:00 Test Item Value Reference Range Interpretation Comments T3 UPTAKE (test code = 2817) 26.3 % T4 (THYROXINE) (test code = 2819) 10.1 UG/DL CALCULATED T7 (FTI) (test code = 2.66 0010) TSH (test code = 2821) 1.7 UIU/ML
[2022-11-17 16:06] LABS: Absolute Lymphocytes (CBC) 2.7 K/uL (0.7-4.9); Hematocrit 41.1 % (36.0-45.0); Lymphocytes % 28.7 % (15.3-44.8); MCV 87.2 fL (80-100); MPV 8.6 fL (7.6-11.3); RBC Red Blood Cell Count 4.71 M/uL (3.86-4.86)
--- NOTE | 2022-11-17 16:08 | RAD REPORT ---
EXAM DESCRIPTION: RAD - Chest Single View - 11/17/2022 4:02 pm CLINICAL HISTORY: DYSPNEA Chest pain. COMPARISON: <Comparisons> FINDINGS: Portable technique limits examination quality. The lungs are grossly clear. The heart is normal in size. No displaced fractures. IMPRESSION: No acute intrathoracic process suspected.
[2022-11-17] MEDS ORDERED: ALBUTEROL 2.5 MG/3 ML NEB SOL ONE (16:31)
[2022-11-17] MEDS ORDERED: IPRATROPIUM BROM 0.5MG/2.5ML ONE (16:31)
[2022-11-17 16:32] LABS: ALT/SGPT 22 U/L (13-56); AST/SGOT 11 U/L (15-37); Albumin 3.3 g/dL (3.4-5.0); Alkaline Phosphatase 112 U/L (45-117); BUN Blood Urea Nitrogen 22 mg/dL (7-18); Bicarbonate 27 mEq/L (21-32); Bilirubin Total 0.2 mg/dL (0.2-1.0); Glomerular Filtration Rate 55 ml/min (=/>90); Glucose Level 141 mg/dL (74-106); NT PRO-BNP 24 pg/mL (<125); Potassium 3.5 mEq/L (3.5-5.1); Protein, Total 8.1 g/dL (6.4-8.2); Sodium Level 138 mEq/L (136-145); Troponin High Sensitivity 4.4 pg/mL (<58.9)
[2022-11-17 16:33] LABS: Bilirubin Direct < 0.1 mg/dL (0-0.2); Bilirubin Indirect, Calculated ND mg/dL (0.2-0.8)
[2022-11-17] MEDS ORDERED: ASPIRIN EC 325 MG TABLET PO ONE (17:34)
--- NOTE | 2022-11-17 17:45 | ER ---
Nurse's Notes [facility] Name: Danisha Dobbs Age: 67 yrs Sex: Female : 1955 Arrival Date: 11/17/2022 Time: 15:11 Bed 15 Private MD: Diagnosis: Chest pain, unspecified;Dyspnea Presentation: 11/17 15:24 Chief complaint: Patient states: SOB X 2 TO 3 DAYS WORSE TODAY. Coronavirus screen: db Client denies travel out of the [place] in the last 14 days. At this time, the client does not indicate any symptoms associated with coronavirus-19. Ebola Screen: Patient negative for fever greater than or equal to 101.5 degrees Fahrenheit, and additional compatible Ebola Virus Disease symptoms Patient denies exposure to infectious person. Patient denies travel to an Ebola-affected area in the 21 days before illness onset. No symptoms or risks identified at this time. Initial Sepsis Screen: Does the patient meet any 2 criteria? No. Patient's initial sepsis screen is negative. Does the patient have a suspected source of infection? No. Patient's initial sepsis screen is negative. Risk Assessment: Do you want to hurt yourself or someone else? Patient reports no desire to harm self or others. Onset of symptoms was November 15, 2022. 15:24 Method Of Arrival: Wheelchair db 15:24 Acuity: KIRAN 2 db Triage Assessment: 15:26 General: Appears in no apparent distress. uncomfortable, Behavior is calm, cooperative. db Pain: Complains of pain in chest. Respiratory: Reports shortness of breath at rest Onset: The symptoms/episode began/occurred gradually, the patient has moderate shortness of breath. Historical: - Allergies: 15:26 Codeine; db - Home Meds: 15:26 None [Active]; db - PMHx: 15:26 Hypercholesterolemia; db - Immunization history:: Client reports receiving the 2nd dose of the Covid vaccine. - Social history:: Smoking status: Patient denies any tobacco usage or history of. - Family history:: not pertinent. Screenin:42 [facility] ED Fall Risk Assessment (Adult) History of falling in the last 3 months, nj1 including since admission No falls in past 3 months (0 pts) Confusion or Disorientation No (0 pts) Intoxicated or Sedated No (0 pts) Impaired Gait No (0 pts) Mobility Assist Device Used No (0 pt) Altered Elimination No (0 pt) Score/Fall Risk Level 0 - 2 = Low Risk Oriented to surroundings, Maintained a safe environment, Hourly rounding (assess needs \T\ fall precautionary measures) done. Abuse screen: Denies threats or abuse. Denies injuries from another. Nutritional screening: No deficits noted. Tuberculosis screening: No symptoms or risk factors identified. Assessment: 15:41 General: Appears in no apparent distress. uncomfortable, Behavior is calm, cooperative, nj1 appropriate for age. Pain: Complains of pain in chest. Neuro: Level of Consciousness is awake, alert, obeys commands, Oriented to person, place, time, situation. Cardiovascular: Patient's skin is warm and dry. Rhythm is regular. Respiratory: Reports shortness of breath Airway is patent Respiratory effort is even, unlabored. 15:41 Pain: Pain currently is 8 out of 10 on a pain scale. [facility] 15:41 Respiratory: Breath sounds are clear. GI: Reports nausea. nj1 16:28 Reassessment: Patient appears in no apparent distress at this time. Patient and/or nj1 family updated on plan of care and expected duration. Pain level reassessed. Patient is alert, oriented x 3, equal unlabored respirations, skin warm/dry/pink. 17:29 Reassessment: Patient appears in no apparent distress at this time. Patient and/or nj1 family updated on plan of care and expected duration. Pain level reassessed. Patient is alert, oriented x 3, equal unlabored respirations, skin warm/dry/pink. Patient states symptoms have improved. 18:30 Reassessment: Patient appears in no apparent distress at this time. Patient and/or nj1 family updated on plan of care and expected duration. Pain level reassessed. Patient is alert, oriented x 3, equal unlabored respirations, skin warm/dry/pink. 18:58 Reassessment: Unsuccessful attempt to call report. Kept of hold, no answer. [facility] 19:41 Reassessment: Patient appears in no apparent distress at this time. Patient and/or nj1 family updated on plan of care and expected duration. Pain level reassessed. Patient is alert, oriented x 3, equal unlabored respirations, skin warm/dry/pink. Vital Signs: 15:24 BP 141 / 112; Pulse 78; Resp 18; Temp 98.9(O); Pulse Ox 100% ; Weight 88.9 kg; Height 5 db ft. 0 in. ; 16:28 BP 140 / 58; Pulse 70; Resp 14; Pulse Ox 100% ; nj1 17:27 BP 140 / 55; Pulse 69; Resp 14; Pulse Ox 100% ; Pain 6/10; nj1 18:30 BP 144 / 58; Pulse 83; Resp 18; Pulse Ox 100% ; Pain 5/10; nj1 19:40 BP 137 / 70; Pulse 71; Resp 16; Pulse Ox 100% on R/A; nj1 20:42 BP 115 / 51; Pulse 66; Resp 14; Pulse Ox 100% on R/A; nj1 15:24 Body Mass Index 38.28 (88.90 kg, 152.4 cm) db 17:27 Pain Scale: Adult nj1 18:30 Pain Scale: Adult [facility] ED Course: 15:13 Patient arrived in ED. im 15:20 Saul Chaudhari MD is Attending Physician. rt 15:26 Triage completed. db 15:27 Arm band placed on right wrist. db 15:35 Inserted saline lock: 22 gauge in left forearm, using aseptic technique. Blood nj1 collected. 15:40 Brina Leavitt, TABATHA is Primary Nurse. nj1 15:43 Patient has correct armband on for positive identification. Bed in low position. Call [facility] light in reach. Side rails up X 1. Adult w/ patient. Provided Education on: fall precautions. 16:04 XRAY Chest (1 view) In Process Unspecified. EDMS 17:44 Meir Cage is Hospitalizing Provider. rt 18:39 No provider procedures requiring assistance completed. Patient admitted, IV remains in va1 place. Administered Medications: 16:20 Drug: DuoNeb Nebulize (3:1) (2.5 mg - 0.5 mg) 3 ml Route: Nebulizer; [facility] 17:23 Follow up: Response: No adverse reaction nj1 17:27 Drug: Aspirin PO 325 mg Route: PO; nj 18:00 Follow up: Response: No adverse reaction [facility] Medication: 18:39 VIS not applicable for this client. [facility] Outcome: 17:44 Decision to Hospitalize by Provider. rt 19:38 Admitted to Med/surg accompanied by tech, via wheelchair, room 221, Report called to [facility] Nurse Whiteson 19:38 Condition: stable 19:38 Instructed on the need for admit. 20:56 Patient left the ED. [facility] Signatures: Dispatcher [employer] Ceci Hunter, TABATHA RN db Saul Chaudhari MD MD rt Brina Leavitt RN RN nj1 Roxanna Bella Corrections: (The following items were deleted from the chart) 18:39 18:30 BP 144 / 58; Pulse 83bpm; Resp 18bpm; Pulse Ox 100%; [facility]
--- NOTE | 2022-11-17 17:45 | EDPHYS ---
Physician Documentation [facility] Name: Danisha Dobbs Age: 67 yrs Sex: Female : 1955 Arrival Date: 11/17/2022 Time: 15:11 Bed 15 Private MD: ED Physician Saul Chaudhari HPI: 11/17 17:05 This 67 yrs old Female presents to ER via Wheelchair with complaints of rt Shortness Of Breath. 17:05 Patient presents to the ED with chest pressure, dyspnea starting today. She has rt associated dizziness scribes lightheadedness as well as nausea. She denies other acute complaints at this time. Symptoms are moderate in severity, no other aggravating or alleviating factors.. Historical: - Allergies: 15:26 Codeine; db - Home Meds: 15:26 None [Active]; db - PMHx: 15:26 Hypercholesterolemia; db - Immunization history:: Client reports receiving the 2nd dose of the Covid vaccine. - Social history:: Smoking status: Patient denies any tobacco usage or history of. - Family history:: not pertinent. ROS: 17:05 Constitutional: Negative for fever, chills, and weight loss, MS/Extremity: Negative for rt injury and deformity, Skin: Negative for injury, rash, and discoloration, Neuro: Negative for headache, weakness, numbness, tingling, and seizure, Psych: Negative for depression, anxiety, suicide ideation, homicidal ideation, and hallucinations. 17:05 Cardiovascular: Positive for chest pain, Negative for edema. 17:05 Respiratory: Positive for shortness of breath, Negative for cough. 17:05 Abdomen/GI: Positive for nausea, Negative for vomiting. Exam: 17:05 Constitutional: This is a well developed, well nourished patient who is awake, alert, rt and in no acute distress. Head/Face: Normocephalic, atraumatic. Chest/axilla: Normal chest wall appearance and motion. Nontender with no deformity. No lesions are appreciated. Cardiovascular: Regular rate and rhythm with a normal S1 and S2. No gallops, murmurs, or rubs. Normal PMI, no JVD. No pulse deficits. Respiratory: Lungs have equal breath sounds bilaterally, clear to auscultation and percussion. No rales, rhonchi or wheezes noted. No increased work of breathing, no retractions or nasal flaring. Abdomen/GI: Soft, non-tender, with normal bowel sounds. No distension or tympany. No guarding or rebound. No evidence of tenderness throughout. Skin: Warm, dry with normal turgor. Normal color with no rashes, no lesions, and no evidence of cellulitis. MS/ Extremity: Pulses equal, no cyanosis. Neurovascular intact. Full, normal range of motion. Neuro: Awake and alert, GCS 15, oriented to person, place, time, and situation. Cranial nerves II-XII grossly intact. Motor strength 5/5 in all extremities. Sensory grossly intact. Cerebellar exam normal. Normal gait. Psych: Awake, alert, with orientation to person, place and time. Behavior, mood, and affect are within normal limits. 17:05 ECG was reviewed by the Attending Physician. Vital Signs: 15:24 BP 141 / 112; Pulse 78; Resp 18; Temp 98.9(O); Pulse Ox 100% ; Weight 88.9 kg; Height 5 db ft. 0 in. ; 16:28 BP 140 / 58; Pulse 70; Resp 14; Pulse Ox 100% ; nj1 17:27 BP 140 / 55; Pulse 69; Resp 14; Pulse Ox 100% ; Pain 6/10; nj1 18:30 BP 144 / 58; Pulse 83; Resp 18; Pulse Ox 100% ; Pain 5/10; nj1 19:40 BP 137 / 70; Pulse 71; Resp 16; Pulse Ox 100% on R/A; nj1 20:42 BP 115 / 51; Pulse 66; Resp 14; Pulse Ox 100% on R/A; nj1 15:24 Body Mass Index 38.28 (88.90 kg, 152.4 cm) db 17:27 Pain Scale: Adult nj1 18:30 Pain Scale: Adult nj1 MDM: 15:33 Patient medically screened. rt 17:44 Differential diagnosis: Reactive airway disease, pneumonia, pneumothorax, pulmonary rt embolism, TAD, acute coronary syndrome. Data reviewed: vital signs, nurses notes, lab test result(s), EKG, radiologic studies. Consideration of Admission/Observation Patient was admitted/placed on observation. Management of patient was discussed with the following: Hospitalist: Agrees to admit. I considered the following discharge prescriptions or medication management in the emergency department Medications were administered in the Emergency Department. See MAR. Independent interpretation of the following test(s) in the Emergency Department X-Ray: My interpretation is No consolidation seen on my interpretation of the x-ray images. Test considered but Not performed: CT: Low suspicion for pulmonary embolism, CT angiogram not indicated. Care significantly affected by the following chronic conditions: Hypertension. Scoring Tools HEART Score: History: Moderately Suspicious (1) ECG: Non specific repolarization disturbance/ LBTB/ PM (1) Age: > or = 65 years (2) Risk Factors: 1 or 2 Risk factors (1) Troponin: < or = 1 x Normal limit (0) Total Score = 5. Counseling: I had a detailed discussion with the patient and/or guardian regarding: the historical points, exam findings, and any diagnostic results supporting the discharge/admit diagnosis, lab results, radiology results, the need for further work-up and treatment in the hospital. 11/17 15:43 Order name: Basic Metabolic Panel; Complete Time: 16:36 rt 11/17 15:43 Order name: CBC with Diff; Complete Time: 16:36 rt 11/17 15:43 Order name: LFT's; Complete Time: 16:36 rt 11/17 15:43 Order name: NT PRO-BNP; Complete Time: 16:36 rt 11/17 15:43 Order name: Troponin HS; Complete Time: 16:36 rt 11/17 15:43 Order name: XRAY Chest (1 view); Complete Time: 16:11 rt 11/17 15:43 Order name: EKG; Complete Time: 15:44 rt 11/17 15:43 Order name: Cardiac monitoring; Complete Time: 15:45 rt 11/17 15:43 Order name: EKG - Nurse/Tech; Complete Time: 15:45 rt 11/17 15:43 Order name: IV Saline Lock; Complete Time: 16:07 rt 11/17 15:43 Order name: Labs collected and sent; Complete Time: 16:07 rt 11/17 15:43 Order name: O2 Per Protocol; Complete Time: 15:46 rt 11/17 15:43 Order name: O2 Sat Monitoring; Complete Time: 15:46 rt EC:05 Rate is 79 beats/min. Rhythm is regular, Normal Sinus Rhythm with No ectopy. QRS [place] rt is Normal. Left axis deviation noted. NC interval is normal. QRS interval is normal. QT interval is normal. No Q waves. Clinical impression: NSR w/ Non-specific ST/T Changes. Administered Medications: 16:20 Drug: DuoNeb Nebulize (3:1) (2.5 mg - 0.5 mg) 3 ml Route: Nebulizer; nj1 17:23 Follow up: Response: No adverse reaction nj1 17:27 Drug: Aspirin PO 325 mg Route: PO; nj1 18:00 Follow up: Response: No adverse reaction nj1 Disposition Summary: 11/17/22 17:44 Hospitalization Ordered Hospitalization Status: Observation rt Provider: Meir Cage rt Location: Telemetry/MedSurg (observation) rt Condition: Stable rt Problem: new rt Symptoms: are unchanged rt Bed/Room Type: Standard rt Room Assignment: [facility](11/17/22 18:35) dw Diagnosis - Chest pain, unspecified rt - Dyspnea rt Forms: - Medication Reconciliation Form rt - SBAR form rt Signatures: Dispatcher [employer] Lashon Hoskins RN RN dw Benton, Danielle, RN RN db Saul Chaudhari MD MD rt Brina Leavitt RN RN nj1 Corrections: (The following items were deleted from the chart) 18:35 17:44 rt dw
--- NOTE | 2022-11-17 18:33 | P.HP ---
Certification for Inpatient Patient admitted to: Observation With expected LOS: <2 Midnights Practitioner: I am a practitioner with admitting privileges, knowledge of patient current condition, hospital course, and medical plan of care. Services: Services provided to patient in accordance with Admission requirements found in Title 42 Section 412.3 of the Code of Federal Regulations Patient History Date of Service: 11/17/22 Reason for admission: Chest pain History of Present Illness: 67-year-old woman with history of prediabetes and hypertension, currently not on any medication and no PCP presented to the emergency department with a complaint of intermittent chest pressure, associated with shortness of breath and nausea. Patient states his symptoms have been present for several months, intermittent in nature, and got worse today. She therefore presented to the emergency department for evaluation. Patient denies any wheezing or cough. She denies any history of asthma. She states that she was prescribed inhaler at that point in time which partially relieved her symptoms. She is concerned about heart problems given clinic and family history of CAD. EKG showed sinus rhythm and nonspecific ST-T changes. Initial troponin is negative. Patient is hospitalized for ACS rule out. Allergies codeine Allergy (Verified 12/02/18 19:38) Nausea/Vomiting Home Medications: NK [No Home Meds] 12/02/18 - Past Medical/Surgical History Diabetic: No -: Prediabetes -: Hypertension -: Hyperlipidemia -: Appendectomy with right oophorectomy -: Left knee surgery -: Right shoulder surgery -: Ectopic surgery Psychosocial/ Personal History: Patient . Lives at home. - Family History Mother -: Heart disease - Social History Smoking Status: Former smoker Alcohol use: No CD- Drugs: No Caffeine use: Yes Review of Systems Other: Except as documented, all other systems reviewed and negative. Physical Examination - Physical Exam General: Alert, In no apparent distress, Oriented x3, Obese HEENT: Atraumatic, PERRLA, Mucous membr. moist/pink, Sclerae nonicteric Neck: Supple, JVD not distended Respiratory: Clear to auscultation bilaterally, Normal air movement Cardiovascular: No edema, Regular rate/rhythm, Normal S1 S2 Capillary refill: <2 Seconds Gastrointestinal: Normal bowel sounds, Soft and benign, Non-distended, No tenderness Musculoskeletal: No swelling, No tenderness Integumentary: No rashes, No cyanosis Neurological: Normal speech, Normal strength at 5/5 x4 extr, Cranial nerves 3-12 intact Lymphatics: No axilla or inguinal lymphadenopathy - Studies Laboratory Data (last 24 hrs) 11/17/22 15:50: WBC 9.30, Hgb 13.5, Hct 41.1, Plt Count 315 11/17/22 15:50: Sodium 138, Potassium 3.5, BUN 22 H, Creatinine 1.12 H, Glucose 141 H, Total Bilirubin 0.2, AST 11 L, ALT 22, Alkaline Phosphatase 112 Assessment and Plan - Problems (Diagnosis) (1) Chest pain Current Visit: Yes Status: Acute (2) Shortness of breath Current Visit: Yes Status: Acute (3) Prediabetes Current Visit: Yes Status: Acute (4) Hyperlipidemia Current Visit: Yes Status: Acute (5) Essential hypertension Current Visit: Yes Status: Acute (6) Morbid obesity Current Visit: Yes Status: Acute - Plan Place patient under observation. Trend troponin NTG as needed Start baby aspirin Check hemoglobin A1c and lipid profile Monitor BP and start antihypertensives as needed. Nuclear stress test if troponin trend negative given the atypical nature of her chest pain. Obtain echocardiogram Insulin sliding scale for glucose management. - Advance Directives Does patient have a Living Will: No Does patient have a Durable POA for Healthcare: No
[2022-11-17] MEDS ORDERED: NITROGLYCERIN 0.4 MG/TAB SL PRN (19:13)
[2022-11-17] MEDS ORDERED: ALBUTEROL 2.5 MG/3 ML NEB SOL NEB PRN (19:13)
[2022-11-17] MEDS ORDERED: ACETAMINOPHEN 500 MG TAB PO PRN (19:13)
[2022-11-17] MEDS: INSULIN -REGULAR HUMAN 50 UNIT/0.5 ML ML SQ SCH (21:00)
[2022-11-17 22:00] VITALS: BMI 37.8
[2022-11-17 22:06] VITALS: O2SAT 100
[2022-11-18 02:59] LABS: Absolute Lymphocytes (CBC) 3.2 K/uL (0.7-4.9); Hematocrit 39.4 % (36.0-45.0); Lymphocytes % 36.5 % (15.3-44.8); MCV 86.7 fL (80-100); RBC Red Blood Cell Count 4.54 M/uL (3.86-4.86)
[2022-11-18 03:18] LABS: Potassium 3.5 mEq/L (3.5-5.1)
[2022-11-18] MEDS: INSULIN -REGULAR HUMAN 50 UNIT/0.5 ML ML SQ SCH ×2 (07:30→11:30)
[2022-11-18 08:58] VITALS: BP 137/61; TEMP 98.6
[2022-11-18] MEDS ORDERED: ASPIRIN EC 81 MG TAB PO SCH (09:00)
[2022-11-18] MEDS ORDERED: ENOXAPARIN 40 MG/0.4 ML SQ SCH (09:00)
[2022-11-18] MEDS ORDERED: REGADENOSON 0.4 MG/5 ML SYR IV ONE (09:58)
--- NOTE | 2022-11-18 12:21 | RAD REPORT ---
EXAM DESCRIPTION: NM - Rest Stress Cardiac Imaging - 11/18/2022 11:05 am CLINICAL HISTORY: Typical chest pain COMPARISON: No comparisons TECHNIQUE: The patient was administered approximately 9.8 mCi of Tc 99m Sestamibi prior to resting S PECT imaging of the heart. The patient was then administered approximately 29.1 mCi of Tc 99m Sestami bi following exercise or pharmacologic stress. Multiplanar SPECT images were reviewed. FINDINGS: No stress induced ischemic defect is seen to suggest stress induced ischemia. Questionable small fixed defect along the anterior wall apical segment, near the septal junction, may represent s equelae of a remote infarct. The end diastolic volume is 52 ml, the end systolic volume is 11 ml, and the ejection fraction is 78 %. IMPRESSION: No evidence of stress-induced myocardial ischemia. Questionable small fixed defect along the anterior wall apical segment near the septal junction may r epresent sequelae of a remote infarct. Decreased end systolic volume, could relate to longstanding hypertensive status, please correlate cli nically. Left ventricular ejection fraction is within normal limits, 78%.
--- NOTE | 2022-11-18 12:50 | EKG ---
Test Date: 2022-11-17 Test Time: 15:33:36 Dowel Sander Operator: GEOVANNA MEASUREMENT RESULTS: Intervals: Rate: 79 HI: 148 QRSD: 88 QT: 388 QTc: 444 [place]: P: 36 HI: 148 QRS: -15 T: 38 INTERPRETIVE STATEMENTS: Normal sinus rhythm Nonspecific T wave abnormality Abnormal ECG Compared to ECG 03/31/2008 19:16:40 T-wave abnormality now present Left ventricular hypertrophy no longer present Electronically Signed On 11-18-22 12:49:42 CDT by Jonnie Melendrez
--- NOTE | 2022-11-18 13:20 | P.DS ---
Admission Date: 11/17/22 Discharge Date: 11/18/22 Disposition: ROUTINE DISCHARGE Discharge Condition: FAIR Reason for Admission: Chest pain - Problems (1) Chest pain Current Visit: Yes Status: Acute (2) Shortness of breath Current Visit: Yes Status: Acute (3) Prediabetes Current Visit: Yes Status: Acute (4) Hyperlipidemia Current Visit: Yes Status: Acute (5) Essential hypertension Current Visit: Yes Status: Acute (6) Morbid obesity Current Visit: Yes Status: Acute Brief History of Present Illness: 67-year-old woman with history of prediabetes and hypertension, currently not on any medication and no PCP presented to the emergency department with a complaint of intermittent chest pressure, associated with shortness of breath and nausea. Patient states his symptoms have been present for several months, intermittent in nature, and got worse today. She therefore presented to the emergency department for evaluation. Patient denies any wheezing or cough. She denies any history of asthma. She states that she was prescribed inhaler at that point in time which partially relieved her symptoms. She is concerned about heart problems given clinic and family history of CAD. EKG showed sinus rhythm and nonspecific ST-T changes. Initial troponin is negative. Patient was hospitalized for ACS rule out. Hospital Course: Patient placed on observation on the medical floor. Troponin trended negative. She was asymptomatic during the hospital stay. Nuclear stress test was done which showed no stress-induced ischemia. Lipid profile was elevated. Hemoglobin A1c checked today suggest patient is not diabetic Patient prescribed Lipitor 40 mg daily for hyperlipidemia and aspirin daily. She is deemed stable for discharge. Vital Signs/Physical Exam: Temp Pulse Resp BP Pulse Ox 98.6 F 63 18 137/61 96 11/18/22 08:00 11/18/22 08:00 11/18/22 08:00 11/18/22 08:00 11/18/22 08:00 General: Alert, In no apparent distress, Oriented x3 HEENT: Mucous membr. moist/pink Neck: Supple, JVD not distended Respiratory: Clear to auscultation bilaterally, Normal air movement Cardiovascular: No edema, Regular rate/rhythm, Normal S1 S2 Gastrointestinal: Normal bowel sounds, Soft and benign, Non-distended, No tenderness Musculoskeletal: No swelling Integumentary: No rashes, No cyanosis Neurological: Normal strength at 5/5 x4 extr, Cranial nerves 3-12 intact Laboratory Data at Discharge: WBC 8.90 thou/uL (4.3-10.9) 11/18/22 02:16 Hgb 12.9 g/dL (12.0-15.0) 11/18/22 02:16 Hct 39.4 % (36.0-45.0) 11/18/22 02:16 Plt Count 312 thou/uL (152-406) 11/18/22 02:16 Sodium 139 mEq/L (136-145) 11/18/22 02:16 Potassium 3.5 mEq/L (3.5-5.1) 11/18/22 02:16 BUN 19 mg/dL (7-18) H 11/18/22 02:16 Creatinine 0.81 mg/dL (0.55-1.02) 11/18/22 02:16 Glucose 112 mg/dL (74-106) H 11/18/22 02:16 Total Bilirubin 0.2 mg/dL (0.2-1.0) 11/17/22 15:50 AST 11 U/L (15-37) L 11/17/22 15:50 ALT 22 U/L (13-56) 11/17/22 15:50 Alkaline Phosphatase 112 U/L (45-117) 11/17/22 15:50 Triglycerides 337 mg/dL (<150) H 11/17/22 21:58 Cholesterol 236 mg/dL (<200) H 11/17/22 21:58 HDL Cholesterol 39 mg/dL (40-60) L 11/17/22 21:58 Cholesterol/HDL Ratio 6.05 11/17/22 21:58 Home Medications: Aspirin [Aspirin EC 81 MG] 81 mg PO DAILY #30 tab 11/18/22 Atorvastatin Calcium [Lipitor] 40 mg PO BEDTIME #30 tab 11/18/22 New Medications: Aspirin [Aspirin EC 81 MG] 81 mg PO DAILY #30 tab Atorvastatin Calcium [Lipitor] 40 mg PO BEDTIME #30 tab Diet: ADA Activity: Ad xochitl
--- NOTE | 2022-11-18 14:15 | ECHO ---
HEIGHT: 5 ft 0 in WEIGHT: 196 lb 0 oz DATE OF STUDY: 11/18/[address]: Meir Cage MD 2-DIMENSIONAL: YES M.MODE: YES DOPPLER: YES COLOR FLOW: YES TDS: NO PORTABLE: YES DEFINITY: NO BUBBLE STUDY: NO DIAGNOSIS: CHEST PAIN CARDIAC HISTORY: CATHERIZATION: SURGERY: PROSTHETIC VALVE: PACEMAKER: MEASUREMENTS (cm) DIASTOLIC (NORMALS) SYSTOLIC (NORMALS) IVSd 0.9 (0.6-1.2) LA Diam 2.7 (1.9-4.0) LVEF 63% LVIDd 4.4 (3.5-5.7) LVIDs 2.9 (2.0-3.5) %FS 34% LVPWd 1.1 (0.6-1.2) Ao Diam 2.7 (2.0-3.7) 2 DIMENSIONAL ASSESSMENT: RIGHT ATRIUM: NORMAL LEFT ATRIUM: NORMAL RIGHT VENTRICLE: NORMAL LEFT VENTRICLE: NORMAL TRICUSPID VALVE: MILD TRICUSPID REGURGITATION MITRAL VALVE: MILD MITRAL REGURGITATION PULMONIC VALVE: MILD PULMONIC INSUFFICIENCY AORTIC VALVE: NORMAL PERICARDIAL EFFUSION: NONE AORTIC ROOT: NORMAL LEFT VENTRICULAR WALL MOTION: NORMAL. DOPPLER/COLOR FLOW: SEE BELOW. COMMENTS: 1. NORMAL LEFT VENTRICULAR EJECTION FRACTION 60-65%. 2. NORMAL WALL MOTION. 3. GRADE I DIASTOLIC DYSFUNCTION. 4. MILD (MITRAL REGURGITATION, TRICUSPID REGURGITATION, PULMONIC INSUFFICIENCY). TECHNOLOGIST: AN JOHNSON
--- NOTE | 2022-11-18 14:26 | TREADPHA ---
DX: TYPICAL CHEST PAIN Date of Study: 11/18/22 Ht: 5' 0 " Wt: 196 lb 0 oz Consulting Physician: JEFF MEDICATIONS: ASPIRIN, LOVENOX, NOVOLIN-R, NITROSTAT HISTORY: 67 YEAR OLD FEMALE WITH COMPLAINTS OF CHEST PIAN, SHORTNESS OF BREATH, AND WEAKNESS. HISTORY OF HYPERTENSION, FORMER SMOKER. PATIENT STATES ALLERGY TO CODEINE PHYSICIAL EXAMINATION: RESTING B.P.: 136/73 RESTING H.R.: 63 RESTING EKG: NORMAL SINUS RHYTHM, RIGHT BUNDLE BRANCH BLOCK PROTOCOL: LEXISCAN EXERCISE TIME: 3:30 B.P. AT PEAK STRESS: 130/63 IMPRESSION: LEXISCAN INJECTED. CARDIOLITE INJECTED - SEE NUCLEAR MEDICINE REPORT. NO SUPRA VENTRICULAR TACHYCARDIA, VENTRICULAR TACHYCARDIA, PREMATURE ATRIAL COMPLEXES, PREMATURE VENTRICULAR COMPLEXES NOTED. PATIENT DENIES CHEST PAIN. NO EKG CHANGES OF ISCHEMIA WITH LEXISCAN.
[2022-11-18] MEDS ORDERED: ATORVASTATIN 40 MG TAB PO SCH (21:00)
== END 2022-11-18 14:35 | disposition home or self-care (01) ==
LOC: ER 15:11 → ERHOLD 18:20 → 2ND 19:41
PROVIDERS: ADMIT Internal Medicine; ATTEND Internal Medicine
DX: R07.9 Chest pain, unspecified (principal); R06.02 Shortness of breath; R11.0 Nausea; I10 Essential (primary) hypertension; E78.5 Hyperlipidemia, unspecified; E66.01 Morbid (severe) obesity due to excess calories; Z68.38 Body mass index [BMI] 38.0-38.9, adult; Z88.6 Allergy status to analgesic agent
CPT/HCPCS: 93005; 93017; 93306; 85025 ×2; 80048 ×2; 36415; 80061; 82947 ×3; 80076; 83036; 84484 ×3; 83880; 71045; 94640; 78452; 99285; J2785; J7613; J7644; A9500

== ENCOUNTER 2023-03-14 16:49 | Emergency (ER) | payer OTHER ==
--- OUTSIDE RECORDS SUMMARY | 2023-03-14 16:54 | XMS REPORT | Continuity of Care Document ---
:1955 Author Organization [facility] t Address [address] [facility] [address] [place] [address] Care Team Providers Name Role Phone No, Pcp [facility] Primary Care Physician Unavailable Doctor Unassigned, Fonda Attending Clinician Unavailable SONY REES Attending Clinician Unavailable SONY REES Admitting Clinician Unavailable Payers Payer Name Policy Type Policy Number Effective Date Expiration Date S ource Problems Condition Condition Condition Status Onset Resolution Last Treating Co mments Source Name Details Category Date Date Treatment Clinician Date Choledocho Choledocho Disease Active C [facility] lithiasis lithiasis 7 Luke s 00:00: [place] [id number] Center Contracept Contracept Disease Active 2017-05 U nivers raoul raoul 0-31 ity [facility] management [place] [facility] Other Other Disease Active 2017-05 Univers depression depression 0-31 it y of 00:00: [address] Cervical Cervical Disease Active 2017-05 Unive rs polyp polyp 0-31 ity of 00:00: [address] Well woman Well woman Disease Active U nivers exam exam 1- ity of 00:00: [address] Immunizati Immunizati Disease Active U nivers ons up to ons up to 1-07 ity of date date 00:00: [address] Postmenopa Postmenopa Disease Active U nivers usal usal 1-06 ity of 00:00: [address] Obesity Obesity Disease Active 2012-05 Overview: Univ ers (BMI (BMI 1-20 Formattin ity of 30-39.9) 30-39.9) 00:00: g of this Dagoberto as 00 note Medical might be Branch different from the original. 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 Mucous Mucous Disease Active 2012-05 Univers polyp of polyp of 1-20 ity of cervix cervix 00:00: [address] Branch Allergies, Adverse Reactions, Alerts Allergy [...] Source History SDOH [facility] Drinks History SDOH [facility] Alcohol Binge Medical [facility] History SDOH [facility] Alcohol Comment Medical C enter Alcohol intake 2018-12-07 2018-12-[address] [facility] 00:00:00 00:00:00 non-drinker of Medical Ce nter alcohol (finding) History SDOH 2018-12-04 2018-12-[address] [facility] Alcohol Frequency 00:00:00 00:00:00 [facility] Tobacco use and 2018-12-04 2018-12-04 Smokeless [address] [facility] exposure [facility]00 [facility]user [facility] History of 1999-08-04 Cigarette Smoker [facility] of tobacco use 00:00:00 [facility] Sex Assigned At [address] [facility] 00:00:00 00:00:00 [facility] Smoking Status Start Date Stop Date Source Never smoked tobacco [facility] Ex-smoker 2013-03-27 00:00:00 2013-03-27 00:00:00 [facility] Medications Ordered Filled Start Stop Current Ordering Indication Dosage Frequency Signature Comments Components Source Medication Medication Date Date Medication? Clinician (SIG) Name Name Dose No Unknown 12-09 00:00: 00 INSTILL 4 2022-0 No 301 DROPS IN 12-09 THE 00:00: AFFECTED 00 EAR(S) TWICE DAILY TAKE 1 2-0 No 20 TABLET 8-03 DAILY. 00:00: 00 amoxicillin 2020-0 No 1mg [...] 00 ondansetron 2019-0 No 1mg 4 mg 8- disintegrat 00:00: ing tablet 00 pantoprazol 2019-0 [...] 1mg 100 mg 2-09 tablet 00:00: 00 Vital Signs Vital Name Observation Time Observation [...] Procedure Date / Time Performed Performing Clinician [facility] e REFERRAL- 2022-10-26 05:01:00 Doctor Unassigned, No Univer [facility] REQUEST/RESPONSE Name Medical Branch Plan of Care Planned Activity Planned Date Details Comments Source Goal Plan of Care Note [code = 00110-6] Goal Plan of Care Note [code = 98699-2] Goal Plan of Care Note [code = 41215-8] Goal Plan of Care Note [code = 95354-2] Goal Plan of Care Note [code = 62862-4] Goal Plan of Care Note [code = 61829-7] Goal Plan of Care Note [code = 66452-6] Goal Plan of Care Note [code = 17829-0] Goal Plan of Care Note [code = 78311-1] Goal Plan of Care Note [code = 09552-4] Goal Plan of Care Note [code = 00405-2] Goal Plan of Care Note [code = 70265-0] Goal Plan of Care Note [code = 42582-2] Goal Plan of Care Note [code = 96441-0] Goal Plan of Care Note [code = 32011-6] Goal Plan of Care Note [code = 96867-0] Goal Plan of Care Note [code = 27823-9] Goal Plan of Care Note [code = 41067-8] Goal Plan of Care Note [code = 95320-1] Goal Plan of Care Note [code = 79588-0] Goal Plan of Care Note [code = 75744-0] Goal Plan of Care Note [code = 46857-9] Goal Plan of Care Note [code = 31520-9] Goal Plan of Care Note [code = 31418-3] Goal Plan of Care Note [code = 97888-9] Goal Plan of Care Note [code = 64320-7] Goal Plan of Care Note [code = 38416-5] Goal Plan of Care Note [code = 89121-5] Goal Plan of Care Note [code = 48604-2] Goal Plan of Care Note [code = 71350-1] Goal Plan of Care Note [code = 05155-8] Goal Plan of Care Note [code = 71963-5] Goal Plan of Care Note [code = 07994-3] Goal Plan of Care Note [code = 51842-0] Goal Plan of Care Note [code = 73871-6] Goal Plan of Care Note [code = 54559-8] Goal Plan of Care Note [code = 22876-1] Goal Plan of Care Note [code = 48943-3] Goal Plan of Care Note [code = 48274-2] Goal Plan of Care Note [code = 88988-6] Goal Plan of Care Note [code = 32910-6] Goal Plan of Care Note [code = 86314-8] Goal Plan of Care Note [code = 84698-2] Goal Plan of Care Note [code = 98690-9] Goal Plan of Care Note [code = 04003-0] Goal Plan of Care Note [code = 20036-0] Goal Plan of Care Note [code = 84885-7] Goal Plan of Care Note [code = 55853-7] Goal Plan of Care Note [code = 26764-5] Goal Plan of Care Note [code = 62569-0] Goal Plan of Care Note [code = 99452-9] Goal Plan of Care Note [code = 76708-4] Goal Plan of Care Note [code = 18445-4] Goal Plan of Care Note [code = 00592-9] Goal Plan of Care Note [code = 17208-3] Goal Plan of Care Note [code = 91975-5] Goal Plan of Care Note [code = 33222-9] Goal Plan of Care Note [code = 25152-3] Goal Plan of Care Note [code = 38100-3] Goal Plan of Care Note [code = 32940-0] Goal Plan of Care Note [code = 48133-6] Goal Plan of Care Note [code = 82761-0] Goal Plan of Care Note [code = 44369-6] Goal Plan of Care Note [code = 96687-0] Goal Plan of Care Note [code = 05311-8] Encounters Start End Encounter Admission Attending Care Care Encounter Source Date/Time Date/Time Type Type Clinicians Facility Department ID 2023-02-22 2023-02-22 Outpatient SFA SFA [id number] 023 Yuri 11:22:25 11:22:25 1018 F José Manuel 2023-01-16 2023-01-16 Outpatient SFA SFA [id number] 023 Yuri 08:05:15 08:05:15 0911 F José Manuel 2022-10-26 2022-10-26 Outpatient SFA SFA [id number] 023 Yuri 10:35:19 10:35:19 0621 [place] 2022-10-26 2022-10-26 Orders Doctor ALMA [id number] 00:00:00 00:00:00 Only Unassigned, ROBBY 350.1.13.10 ity of Fonda [facility] [id number] Dagoberto as [id number] [place] [address] Branch 2022-10-24 2022-10-24 Outpatient SFA SFA [id number] 023 Yuri 11:40:17 11:40:17 0619 [facility] 2022-05-20 2022-05-20 Outpatient SFA SFA [id number] 023 Yuri 17:02:34 17:02:34 0113 F José Manuel 2022-04-12 2022-04-12 Outpatient SFA SFA [id number] 022 Yuri 14:03:28 14:03:28 1206 F José Manuel 2021-12-09 2021-12-09 Outpatient [id number] 00:00:00 00:00:00 Visit [id number]-773 [id number] 2021-12-042021-12-04 Outpatient [id number] 0030ab-c 00:00:00 00:00:00 Visit g1j0-67hr [id number]-[id number] -[id number]-[id number] [id number] Results Test Description Test Time Test Comments Results Result Comments Source COMPREHENSIVE METABOLIC PANEL 2023-01-17 04:41:55 Test Item Value Reference Range Interpretation Comme nts GLUCOSE (test code = 221) 111 MG/DL 70-99 H BUN (test code = 2208) 16 MG/DL 8-23 CREATININE (test code = 0.81 MG/DL 0.60-1.30 2213) eGFR (2020 CKD-EPI) (test 81 ML/MIN/1.73 >60 code = 87368) CALC BUN/CREAT (test code = 20 RATIO 6-2234) SODIUM (test code = 223) 139 MEQ/L 133-146 POTASSIUM (test code = 2228) 4.2 MEQ/L 3.5-5.4 CHLORIDE (test code = 2215) 101 MEQ/L 95-107 CARBON DIOXIDE (test code = 25 MEQ/L -2205) CALCIUM (test code = 2209) 8.8 MG/DL 8.5-10.5 PROTEIN, TOTAL (test code = 7.3 G/DL 6.1-8.3 2228) ALBUMIN (test code = 2201) 4.1 G/DL 3.5-5.2 CALC GLOBULIN (test code = 3.2 G/DL 1.9-3.7 2239) CALC A/G RATIO (test code = 1.3 RATIO 1.0-2.6 2233) BILIRUBIN, TOTAL (test code 0.2 MG/DL See_Comment [Automated message] The = 2206) system which ge nerated this result transmit liz reference range: <=1.2. T he reference range was not u sed to interpret this result as normal/abnormal . ALKALINE PHOSPHATASE (test 116 U/L 40-140 code = 2204) AST (test code = 2218) 16 U/L 9-40 ALT (test code = 2219) 17 U/L 5-40 LIPID [id number] 04:41:55 Test Item Value Reference Range Interpretation Comments CHOLESTEROL (test 178 MG/DL <200 code = 2210) TRIGLYCERIDES (test 207 MG/DL <150 H code = 2232) HDL CHOLESTEROL (test 49 MG/DL >39 code = 2220) CALC LDL CHOL (test 99 MG/DL <100 NOTE: C ALCULATED LDL code = 2237) IS BASED ON JOAQUIM-TOSCANO METHOD WHICHINCLUDES ADJUSTABLE TRIGLYCERIDE:VL DL CHOLESTEROL RAT IO.THIS FACTOR VARIES B Y MEASURED TRIGLY CERIDE AND NON-HDLCHOL ESTEROL CONCENTRATIONS WITH INCREASED CALCU LATED LDL SEENIN HIGH ER TRIGLYCERIDE OR LOWER NON-HDL SPECIME NS. FOR MOREINFORMATION , SEE CLIENT ANNOUNCE MENT AT [email or web address] [email or web address] RATIO LDL/HDL 2.02 RATIO <3.22 UNLESS O THERWISE (test code = 2238) INDICATED , ALL [facility]. [address] [place] [id number] SHIELA ZHAO DIRECTOR: Fabienne THOMAS CLEO NUMBER [id number] CAP ACCREDITATION N O. [id number] HEMOGLOBIN [id number] 03:21:00 Test Item Value Reference Range Interpretation Comments HEMOGLOBIN A1c (test 6.2 % 4.2-5.6 H AMERIC AN DIABETES code = 31637) ASSOCIATION IDELINES FOR HGB A1C: PREDIABETES/INC REASED RISK . . . . . . . 5.7 -6.4% DIAGNOSIS OF DI ABETES . . . . . . . . . >=6 .5% WITH CONFIRMATION OR APPROPRIATE SYMPTOMS NOTE: ASSAY MAY BE AFFECTED BY HEMOGLOBINOPATH IES (SICKLE CELL ANEMIA, S- C DISEASE, OTHERS) OR ZAHRAA FICIALLY LOWERED BY DECR EASED RED CELL SURVIVAL ( HEMOLYTIC ANEMIAS, BLOOD LOSS, ETC.). CONSIDER ALTERN ATE TESTING OR LABORATORY C ONSULTATION. CBC W/AUTO DIFF WITH [id number] 02:35:39 Test Item Value Reference Range Interpretation Comments WBC (test code = 8.8 K/UL 3.5-11.0 1001) RBC (test code = 4.78 M/UL 3.80-5.40 1002) HEMOGLOBIN (test code 13.6 G/DL 11.5-15.5 = 1003) HEMATOCRIT (test code 41.6 % 34.0-45.0 = 1004) MCV (test code = 87.0 fL 80.0-99.0 1005) MCH (test code = 28.5 PG 25.0-33.0 1006) MCHC (test code = 32.7 G/DL 31.0-36.0 1007) RDW (test code = 13.5 % 11.5-15.0 1038) NEUTROPHILS (test 67.0 % code = 1008) LYMPHOCYTES (test 23.3 % code = 1010) MONOCYTES (test code 7.1 % = 1011) EOSINOPHILS (test 1.7 % code = 1012) BASOPHILS (test code 0.7 % = 1013) IMMATURE GRANULOCYTES 0.2 % (test code = 1036) NUCLEATED RBCS (test 0.0 /100 WBC'S See_Comment [Aut omated code = 1065) message] The sy stem which generated this result transmitted reference range : 0.0. The refere nce range was not u sed to interpret th is result as normal/abnormal . PLATELET COUNT (test 315 K/UL 130-400 code = 1015) ABSOLUTE NEUTROPHILS 5.91 K/UL 1.50-7.50 (test code = 1066) ABSOLUTE LYMPHOCYTES 2.06 K/UL 1.00-4.00 (test code = 1067) ABSOLUTE MONOCYTES 0.63 K/UL 0.20-1.00 (test code = 1068) ABSOLUTE EOSINOPHILS 0.15 K/UL 0.00-0.50 (test code = 1040) ABSOLUTE BASOPHILS 0.06 K/UL 0.00-0.20 (test code = 1069) ABS IMMATURE 0.02 K/UL 0.00-0.10 GRANULOCYTES (test code = 1020) ABS NUCLEATED RBCS 0.00 K/UL 0.00-0.11 (test code = 34731) TSH, THIRD [id number] 04:31:23 Test Item Value Reference Range Interpretation Comments TSH, THIRD 1.540 UIU/ML 0.400-4.100 UNLESS OTHERWI SE GENERATION (test INDICATED, ALL TESTING code = 2821) PERFORMED [facility], [place] [address] [facility] [place] [address] [facility] DIRECTOR: OKSANA QUINTERO M.D. CLIA NUMBER [id number] CAP ACCREDITATION N O. [id number] LIPID [id number] 03:00:35 Test Item Value Reference Range Interpretation [...] MOREINFORMATION , SEE CLIENT ANNOUNCE MENT AT [email or web address] RISK RATIO LDL/HDL 3.28 RATIO <3.22 H (test code = 2238) COMPREHENSIVE METABOLIC [id number] 03:00:35 Test Item Value Reference Range Interpretation Comments GLUCOSE (test code = 105 MG/DL 70-99 H 2216) BUN (test code = 14 MG/DL 8-23 2207) CREATININE (test 0.85 MG/DL 0.60-1.30 code = 2214) eGFR (2020 CKD-EPI) 76 ML/MIN/1.73 >60 (test code = 57457) CALC BUN/CREAT (test 16 RATIO 6-28 code = 2235) SODIUM (test code = 140 MEQ/L 477-551 7810) POTASSIUM (test code 5.0 MEQ/L 3.5-5.4 = 2227) CHLORIDE (test code 101 MEQ/L 95-107 = [...] MG/DL See_Comment [Automated message] (test code = 2206) The syste m which generated this result transmit liz reference range : <=1.2. The refe rence range was not u sed to interpret th is result as normal/abnormal . ALKALINE PHOSPHATASE 110 U/L 40-140 (test code = 2203) AST (test code = 19 U/L 9-40 8) ALT (test code = 11 U/L 5-40 2218) HEMOGLOBIN [id number] 02:27:53 Test Item Value Reference Range Interpretation Comments HEMOGLOBIN A1c (test code = 55320) 6.0 % 4.2-5.6 H CBC W/AUTO DIFF WITH [id number] 01:45:03 Test Item Value Reference Range Interpretation [...] RBCS 0.00 K/UL 0.00-0.11 (test code = 41702) VAGINAL PATHOGENS DNA [id number] 15:36:26 Test Item Value Reference Range Interpretation Comments NALLELY SPECIES (test NEGATIVE NEGATIVE code = ) G. VAGINALIS (test NEGATIVE NEGATIVE code = ) T. VAGINALIS (test NEGATIVE NEGATIVE UNLESS O THERWISE code = ) INDICATED, ALL TESTING PERFORMED [facility] [address] [place] [address] 4 LABORATORY DIRE CTOR: OKSANA BERRY M.D. CLIA NUMBER [id number] [place] [id number] VAGINAL PATHOGENS DNA [id number] 00:00:00 Test Item Value Reference Range Interpretation Comments NALLELY SPECIES (test code = ) NEGATIVE G. VAGINALIS (test code = ) NEGATIVE T. VAGINALIS (test code = ) NEGATIVE LIPID [id number] 01:12:10 Test Item Value Reference Range Interpretation [...] <3.22 (test code = 2238) COMPREHENSIVE METABOLIC [id number] 01:12:10 Test Item Value Reference Range Interpretation Comments GLUCOSE (test code = 96 MG/DL 70-99 2216) BUN (test code = 15 MG/DL 8-23 2207) CREATININE (test 0.78 MG/DL 0.60-1.30 code = 2214) eGFR (2020 CKD-EPI) 85 ML/MIN/1.73 >60 (test code = 45829) CALC BUN/CREAT (test 19 RATIO 6-28 code = 2235) SODIUM (test code = 139 MEQ/L 667-747 6232) POTASSIUM (test code 4.4 MEQ/L 3.5-5.4 = 2227) CHLORIDE (test code 99 MEQ/L 95-107 = 2214) CARBON DIOXIDE (test 26 MEQ/L 19-31 code = 220) CALCIUM (test code = 9.8 MG/DL 8.5-10.5 2208) PROTEIN, TOTAL (test 7.7 G/DL 6.1-8.3 code = 222) ALBUMIN (test code = 4.3 G/DL 3.5-5.2 2200) CALC GLOBULIN (test 3.4 G/DL 1.9-3.7 code = 224) CALC A/G RATIO (test 1.3 RATIO 1.0-2.6 code = 223) BILIRUBIN, TOTAL 0.3 MG/DL See_Comment [Automated message] [...] code = 11 U/L 5-40 2218) LIPID [id number] 00:00:00 Test Item Value Reference Range Interpretation Comments CHOLESTEROL (test code = 2210) 232 MG/DL TRIGLYCERIDES (test code = 2232) 263 MG/DL HDL CHOLESTEROL (test code = 2220) 49 MG/DL CALC LDL CHOL (test code = 2237) 143 MG/DL RISK RATIO LDL/HDL (test code = 2.92 RATIO 2237) COMPREHENSIVE METABOLIC [id number] 00:00:00 Test Item Value Reference Range Interpretation Comments GLUCOSE (test code = 2217) 96 MG/DL BUN (test code = 2208) 15 MG/DL CREATININE (test code = 2214) 0.78 MG/DL eGFR (2020 CKD-EPI) (test code 85 ML/MIN/1.73 = 96803) CALC BUN/CREAT (test code = 19 RATIO 2235) SODIUM (test code = 2231) 139 MEQ/L POTASSIUM (test code = 2228) 4.4 MEQ/L CHLORIDE (test code = 2215) 99 MEQ/L CARBON DIOXIDE (test code = 26 MEQ/L 2205) CALCIUM (test code = 2209) 9.8 MG/DL PROTEIN, TOTAL (test code = 7.7 G/DL 2228) ALBUMIN (test code = 220) 4.3 G/DL CALC GLOBULIN (test code = 3.4 G/DL 2239) CALC A/G RATIO (test code = 1.3 RATIO 2233) BILIRUBIN, TOTAL (test code = 0.3 MG/DL 2206) ALKALINE PHOSPHATASE (test 108 U/L code = 2204) AST (test code = 2218) 17 U/L ALT (test code = 2219) 11 U/L HEMOGLOBIN [id number] 02:50:21 Test Item Value Reference Range Interpretation Comments HEMOGLOBIN A1c (test code = 08840) 6.1 % 4.2-5.6 H HEMOGLOBIN [id number] 00:00:00 Test Item Value Reference Range Interpretation Comments HEMOGLOBIN A1c (test code = 22127) 6.1 % HEMOGLOBIN [id number] 00:00:00 Test Item Value Reference Range Interpretation Comments HEMOGLOBIN A1c (test code = 17535) 6.1 % BREAST ULTRASOUND [id number] 13:32:49 Name: Omar : 1955 Sex: F- BREAST ULTRASOUND BILATERALULTRASOUND OF BOTH BREASTS AND BOTH AXILLA: 10/28/2020LINICAL: Dense breasts. Comparison is made to exam dated 07/31/2020 mammogram - [facility]. Real-time ultrasound of both breasts [...] Entry: - 10/28/2020 16:26:22Imaging Technologist: Yuliya Laureano FW, [facility]-FWletter sent: BIRADS 1-2 Normal Ultrasound BI-RADS: 2 BenignSCR MAMM BILATERAL MARYBEL CAD [id number] 16:12:37 Name: Omar : 1955 Sex: F - SCR MAMM BILATERAL MARYBEL CAD DIGITALBILATERAL DIGITAL SCREENING MAMMOGRAM 3D/2D WITH CAD: 07/31/2020LINICAL: Asymptomatic. Digital breast tomosynthesis was performed in addition to routine CC and MLO views. Current mammographic images were evaluated by [facility] [employer] CAD (computed aided detection) software. No prior [...] ADDITIONAL IMAGING EVALUATION NEEDEDBilateral ultrasound recommended. Jarrett alvarenga/jose juan:08/05/2020 16:12:37 Behavior Support Specialist: Deneen Acosta MM, [facility]ography[facility] sent: Additional Imaging Mammogram BI-RADS: 0 Incomplete: Additional Imaging Evaluation NeededHIV AB/AG COMBO RFLX CONF 2020-06-03 00:00:00 Test Item Value Reference Range Interpretation Comments HIV 1/2 4TH GEN, RFLX CONF (test NON-REACTIVE code = 3514) HIV AB/AG COMBO RFLX [id number] 00:00:00 Test Item Value Reference Range Interpretation Comments HIV 1/2 4TH GEN, RFLX CONF (test NON-REACTIVE code = 3514) GC AND CHLAMYDIA, AMPLIFIED, [id number] 00:00:00 Test Item Value Reference Range Interpretation Comments GONORRHEA, NAAT (test code = 32025) NEGATIVE CHLAMYDIA, NAAT (test code = 15681) NEGATIVE GC AND CHLAMYDIA, AMPLIFIED, [id number] 00:00:00 Test Item Value Reference Range Interpretation Comments GONORRHEA, NAAT (test code = 56748) NEGATIVE CHLAMYDIA, NAAT (test code = 31907) NEGATIVE [id number] 00:00:00 Test Item Value Reference Range Interpretation Comments RPR RESULT (test code = NON-REACTIVE 3501) RPR TITER (test code = 3500) NOT INDIC. TITER [id number] 00:00:00 Test Item Value Reference Range Interpretation Comments RPR RESULT (test code = NON-REACTIVE 3501) RPR TITER (test code = 3500) NOT INDIC. TITER HEMOGLOBIN [id number] 00:00:00 Test Item Value Reference Range Interpretation Comments HEMOGLOBIN A1c (test code = 09940) 5.8 % HEMOGLOBIN [id number] 00:00:00 Test Item Value Reference Range Interpretation Comments HEMOGLOBIN A1c (test code = 87570) 5.8 % LIPID [id number] 00:00:00 Test Item Value Reference Range Interpretation Comments CHOLESTEROL (test code = 2210) 248 MG/DL TRIGLYCERIDES (test code = 2232) 244 MG/DL HDL CHOLESTEROL (test code = 2220) 53 MG/DL CALC LDL CHOL (test code = 2237) 154 MG/DL RISK RATIO LDL/HDL (test code = 2.91 RATIO 2238) COMPREHENSIVE METABOLIC [id number] 00:00:00 Test Item Value Reference Range Interpretation Comments GLUCOSE (test code = 2217) 98 MG/DL BUN (test code = 2208) 20 MG/DL CREATININE (test code = 2214) 0.87 MG/DL eGFR AMER. (test code 83 ML/MIN/1.73 = 22726) eGFR NON- AMER. (test 71 ML/MIN/1.73 code = 81699) CALC BUN/CREAT (test code = 23 RATIO [...] ALT (test code = 2219) 15 U/L [id number] 00:00:00 Test Item Value Reference Range Interpretation Comments RPR RESULT (test code = NON-REACTIVE 3501) RPR TITER (test code = 3500) NOT INDIC. TITER [id number] 00:00:00 Test Item Value Reference Range Interpretation Comments RPR RESULT (test code = NON-REACTIVE 3501) RPR TITER (test code = 3500) NOT INDIC. TITER HEMOGLOBIN [id number] 00:00:00 Test Item Value Reference Range Interpretation Comments HEMOGLOBIN A1c (test code = 62669) 5.8 % HEMOGLOBIN [id number] 00:00:00 Test Item Value Reference Range Interpretation Comments HEMOGLOBIN A1c (test code = 25307) 5.8 % LIPID [id number] 00:00:00 Test Item Value Reference Range Interpretation Comments CHOLESTEROL (test code = 2210) 248 MG/DL TRIGLYCERIDES (test code = 2232) 244 MG/DL HDL CHOLESTEROL (test code = 2220) 53 MG/DL CALC LDL CHOL (test code = 2237) 154 MG/DL RISK RATIO LDL/HDL (test code = 2.91 RATIO 2238) COMPREHENSIVE METABOLIC [id number] 00:00:00 Test Item Value Reference Range Interpretation Comments GLUCOSE (test code = 2217) 98 MG/DL BUN (test code = 2208) 20 MG/DL CREATININE (test code = 2214) 0.87 MG/DL eGFR AMER. (test code 83 ML/MIN/1.73 = 46199) eGFR NON- AMER. (test 71 ML/MIN/1.73 code = 64941) CALC BUN/CREAT (test code = 23 RATIO [...] A/G RATIO (test code = 1.1 RATIO 2234) BILIRUBIN, TOTAL (test code = 0.3 MG/DL 220) ALKALINE PHOSPHATASE (test 99 U/L code = 2204) AST (test code = 2218) 18 U/L ALT (test code = 2219) 15 U/L LIPID [id number] 00:00:00 Test Item Value Reference Range Interpretation Comments CHOLESTEROL (test code = 2210) 273 MG/DL TRIGLYCERIDES (test code = 2232) 229 MG/DL HDL CHOLESTEROL (test code = 2220) 54 MG/DL CALC LDL CHOL (test code = 2237) 173 MG/DL RISK RATIO LDL/HDL (test code = 3.21 RATIO 2238) LIPID [id number] 00:00:00 Test Item Value Reference Range Interpretation Comments CHOLESTEROL (test code = 2210) 273 MG/DL TRIGLYCERIDES (test code = 2232) 229 MG/DL HDL CHOLESTEROL (test code = 2220) 54 MG/DL CALC LDL CHOL (test code = 2237) 173 MG/DL RISK RATIO LDL/HDL (test code = 3.21 RATIO 2238) HEMOGLOBIN [id number] 00:00:00 Test Item Value Reference Range Interpretation Comments HEMOGLOBIN A1c (test code = 77150) 5.5 % HEMOGLOBIN [id number] 00:00:00 Test Item Value Reference Range Interpretation Comments HEMOGLOBIN A1c (test code = 94863) 5.5 % COMPREHENSIVE METABOLIC [id number] 00:00:00 Test Item Value Reference Range Interpretation Comments GLUCOSE (test code = 2217) 96 MG/DL BUN (test code = 2208) 20 MG/DL CREATININE (test code = 2214) 0.82 MG/DL eGFR AMER. (test code 90 ML/MIN/1.73 = 23832) eGFR NON- AMER. (test 77 ML/MIN/1.73 code = 54111) CALC BUN/CREAT (test code = 24 RATIO [...] CALC GLOBULIN (test code = 3.6 G/DL 2240) CALC A/G RATIO (test code = 1.2 RATIO 2233) BILIRUBIN, TOTAL (test code = 0.3 MG/DL 2206) ALKALINE PHOSPHATASE (test 110 U/L code = 2204) AST (test code = 2218) 16 U/L ALT (test code = 2219) 12 U/L HEMOGLOBIN [id number] 00:00:00 Test Item Value Reference Range Interpretation Comments HEMOGLOBIN A1c (test code = 27509) 5.5 % HEMOGLOBIN [id number] 00:00:00 Test Item Value Reference Range Interpretation Comments HEMOGLOBIN A1c (test code = 33320) 5.5 % COMPREHENSIVE METABOLIC [id number] 00:00:00 Test Item Value Reference Range Interpretation Comments GLUCOSE (test code = 2217) 96 MG/DL BUN (test code = 2208) 20 MG/DL CREATININE (test code = 2214) 0.82 MG/DL eGFR AMER. (test code 90 ML/MIN/1.73 = 56546) eGFR NON- AMER. (test 77 ML/MIN/1.73 code = 71863) CALC BUN/CREAT (test code = 24 RATIO [...] A/G RATIO (test code = 1.2 RATIO 2233) BILIRUBIN, TOTAL (test code = 0.3 MG/DL 2206) ALKALINE PHOSPHATASE (test 110 U/L code = 2204) AST (test code = 2218) 16 U/L ALT (test code = 2219) 12 U/L LIPID [id number] 00:00:00 Test Item Value Reference Range Interpretation Comments CHOLESTEROL (test code = 2210) 226 MG/DL TRIGLYCERIDES (test code = 2232) 389 MG/DL HDL CHOLESTEROL (test code = 2220) 48 MG/DL CALC LDL CHOL (test code = 2237) 100 MG/DL RISK RATIO LDL/HDL (test code = 2.09 RATIO 2238) LIPID [id number] 00:00:00 Test Item Value Reference Range Interpretation Comments CHOLESTEROL (test code = 2210) 226 MG/DL TRIGLYCERIDES (test code = 2232) 389 MG/DL HDL CHOLESTEROL (test code = 2220) 48 MG/DL CALC LDL CHOL (test code = 2237) 100 MG/DL RISK RATIO LDL/HDL (test code = 2.09 RATIO 2238) HEMOGLOBIN [id number] 00:00:00 Test Item Value Reference Range Interpretation Comments HEMOGLOBIN A1c (test code = 78105) 5.7 % HEMOGLOBIN [id number] 00:00:00 Test Item Value Reference Range Interpretation Comments HEMOGLOBIN A1c (test code = 10773) 5.7 % COMPREHENSIVE METABOLIC [id number] 00:00:00 Test Item Value Reference Range Interpretation Comments GLUCOSE (test code = 2217) 93 MG/DL BUN (test code = 2208) 22 MG/DL CREATININE (test code = 2214) 0.86 MG/DL eGFR AMER. (test code 85 ML/MIN/1.73 = 17021) eGFR NON- AMER. (test 73 ML/MIN/1.73 code = 95540) CALC BUN/CREAT (test code = 26 RATIO 2235) SODIUM (test code = 2231) 141 MEQ/L POTASSIUM (test code = 2228) 5.2 MEQ/L CHLORIDE (test code = 2215) 98 MEQ/L CARBON DIOXIDE (test code = 28 MEQ/L 2205) CALCIUM (test code = 2209) 8.9 MG/DL PROTEIN, TOTAL (test code = 7.4 G/DL 2228) ALBUMIN (test code = 2201) 4.2 G/DL CALC GLOBULIN (test code = 3.2 G/DL 2239) CALC A/G RATIO (test code = 1.3 RATIO 2234) BILIRUBIN, TOTAL (test code = 0.3 MG/DL 2206) ALKALINE PHOSPHATASE (test 98 U/L code = 2204) AST (test code = 2218) 12 U/L ALT (test code = 2219) 14 U/L HEMOGLOBIN [id number] 00:00:00 Test Item Value Reference Range Interpretation Comments HEMOGLOBIN A1c (test code = 50443) 5.7 % HEMOGLOBIN [id number] 00:00:00 Test Item Value Reference Range Interpretation Comments HEMOGLOBIN A1c (test code = 34800) 5.7 % COMPREHENSIVE METABOLIC [id number] 00:00:00 Test Item Value Reference Range Interpretation Comments GLUCOSE (test code = 2217) 93 MG/DL BUN (test code = 2208) 22 MG/DL CREATININE (test code = 2214) 0.86 MG/DL eGFR AMER. (test code 85 ML/MIN/1.73 = 33223) eGFR NON- AMER. (test 73 ML/MIN/1.73 code = 24436) CALC BUN/CREAT (test code = 26 RATIO 2235) SODIUM (test code = 2231) 141 MEQ/L POTASSIUM (test code = 2228) 5.2 MEQ/L CHLORIDE (test code = 2215) 98 MEQ/L CARBON DIOXIDE (test code = 28 MEQ/L 220) CALCIUM (test code = 2209) 8.9 MG/DL [...] (test code = 2219) 14 U/L TISSUE [id number] 09:23:00Surgical Pathology Report Case: [id number] Authorizing Provider: Kristi Caballero MD Collected: 12/06/2018 1605 Ordering Location: [facility] Received: 12/07/2018 0848 SERVICES Pathologist: Seferino Louis MD Specimen: Gallbladder A. GALLBLADDER, CHOLECYSTECTOMY: - CHRONIC CHOLECYSTITIS WITH CHOLELITHIASIS - NEGATIVE FOR DYSPLASIA OR MALIGNANCY Signing Pathologist Direct Phone Line: [phone] signed by Seferino Louis MD on 12/10/2018 at 9:23 [id number] and postop diagnosis: choledocholithiasisGallbladderReceived fresh labeled with [...] 0.1 cm. No gross lesions are identified. Mucking Machine Operator sectionsare submitted. Section code: A1, cystic duct margin en face; A2, gallbladder wall. CG/pl Performed.HEPATIC FUNCTION [id number] 06:05:00 Test Item Value Reference Range Interpretation [...] 88 U/L 6-55 H 347) BASIC METABOLIC [id number] 06:05:00 Test Item Value Reference Range Interpretation [...] PATIEN TS. CBC W/PLT COUNT & AUTO [id number] 05:28:00 Test Item Value Reference Range Interpretation [...] (BEAKER) (test code = 2801) HEPATIC FUNCTION [id number] 09:17:00 Test Item Value Reference Range Interpretation [...] 122 U/L 6-55 H 347) BASIC METABOLIC [id number] 07:39:00 Test Item Value Reference Range Interpretation [...] NOT APPLICABLE FOR DIALYSIS PATIEN TS. PROTHROMBIN [id number] 06:55:00 Test Item Value Reference Range Interpretation [...] mechanical heart valves.CBC W/PLT COUNT & AUTO [id number] 06:50:00 Test Item Value Reference Range Interpretation [...] (BEAKER) (test code = 2801) HEPATIC FUNCTION [id number] 05:13:00 Test Item Value Reference Range Interpretation [...] 180 U/L 6-55 H 347) BASIC METABOLIC [id number] 05:13:00 Test Item Value Reference Range Interpretation [...] NOT APPLICABLE FOR DIALYSIS PATIEN TS. PROTHROMBIN [id number] 04:54:00 Test Item Value Reference Range Interpretation [...] mechanical heart valves.CBC W/PLT COUNT & AUTO [id number] 04:46:00 Test Item Value Reference Range Interpretation [...] 0-1 PERCENT (BEAKER) (test code = 2801) [place], [id number] 19:40:00Reason for exam:->bile duct obstruction, in support [...] who performed the procedure. Signed: Micheal Saavedra MDReport Verified Date/Time: 12/04/2018 19:40:22 Reading Location: [address] Consult Reading Room MR, ABDOMEN, [id number] 15:18:00FINAL REPORT TECHNIQUE: MRI of the abdomen [...] Henson MDReport Verified Date/Time: 12/04/2018 15:18:56 Reading Location:[facility] B1 C013Y CT Body Reading Room BASIC METABOLIC [id number] 08:37:00 Test Item Value Reference Range Interpretation [...] FOR DIALYSIS PATIEN TS. Specimen slightly ictericLIPID [id number] 08:37:00 Test Item Value Reference Range Interpretation Comments TRIGLYCERIDES (BEAKER) 51 mg/dL Speci men moderately (test code = 540) hemolyzed CHOLESTEROL (BEAKER) 158 mg/dL Specime n moderately (test code = 631) hemolyzed HDL CHOLESTEROL (BEAKER) 65 mg/dL (test code = 976) LDL CHOLESTEROL 83 mg/dL CALCULATED (BEAKER) (test code = 633) Triglyceride Reference Range: Low Risk <150 Borderline 150-199 High Risk 200- 499 Very High Risk >=500Cholesterol Reference Range: Low Risk <200 Borderline 200-239 High Risk >240HDL Cholesterol Reference Range: Low Risk >=60 High Risk <40LDL Cholesterol Reference Range: Optimal <100 Near Optimal 100-129 Borderline 130-159 High 160-189 Very High >=190 Specimen slightly ictericHEPATIC FUNCTION [id number] 08:37:00 Test Item Value Reference Range Interpretation [...] code = 347) hemolyzed Specimen slightly ictericPROTHROMBIN [id number] 08:12:00 Test Item Value Reference Range Interpretation [...] mechanical heart valves.CBC W/PLT COUNT & AUTO [id number] 08:11:00 Test Item Value Reference Range Interpretation [...] (BEAKER) (test code = 2801) COMPREHENSIVE METABOLIC [id number] 00:00:00 Test Item Value Reference Range Interpretation Comments GLUCOSE (test code = 2217) 87 MG/DL BUN (test code = 2208) 14 MG/DL CREATININE (test code = 2214) 0.80 MG/DL eGFR AMER. (test code 95 ML/MIN/1.73 = 70946) eGFR NON- AMER. (test 82 ML/MIN/1.73 code = 81407) CALCULATED BUN/CREAT (test 18 RATIO code = 2235) SODIUM (test code = 2231) 138 MEQ/L POTASSIUM (test code = 2228) 4.5 MEQ/L CHLORIDE (test code = 2215) 98 MEQ/L CARBON DIOXIDE (test code = 28 MEQ/L 2205) CALCIUM (test code = 2209) 9.7 MG/DL [...] code = 2219) 10 U/L COMPREHENSIVE METABOLIC [id number] 00:00:00 Test Item Value Reference Range Interpretation Comments GLUCOSE (test code = 2217) 87 MG/DL BUN (test code = 2208) 14 MG/DL CREATININE (test code = 2214) 0.80 MG/DL eGFR AMER. (test code 95 ML/MIN/1.73 = 02527) eGFR NON- AMER. (test 82 ML/MIN/1.73 code = 73007) CALCULATED BUN/CREAT (test 18 RATIO code = [...] (test code = 2219) 10 U/L LIPID [id number] 00:00:00 Test Item Value Reference Range Interpretation Comments CHOLESTEROL (test code = 2210) 264 MG/DL TRIGLYCERIDES (test code = 2232) 195 MG/DL HDL CHOLESTEROL (test code = 2220) 60 MG/DL CALCULATED LDL CHOL (test code = 165 MG/DL 2236) RISK RATIO LDL/HDL (test code = 2.75 RATIO 2238) CBC W/AUTO [id number] 00:00:00 Test Item Value Reference Range Interpretation [...] code = 1015) 418 K/UL CBC W/AUTO [id number] 00:00:00 Test Item Value Reference Range Interpretation [...] (test code = 1015) 418 K/UL LIPID [id number] 00:00:00 Test Item Value Reference Range Interpretation Comments CHOLESTEROL (test code = 2210) 264 MG/DL TRIGLYCERIDES (test code = 2232) 195 MG/DL HDL CHOLESTEROL (test code = 2220) 60 MG/DL CALCULATED LDL CHOL (test code = 165 MG/DL 2237) RISK RATIO LDL/HDL (test code = 2.75 RATIO 2238) HEMOGLOBIN [id number] 00:00:00 Test Item Value Reference Range Interpretation Comments HEMOGLOBIN A1c (test code = 31782) 6.0 % HEMOGLOBIN [id number] 00:00:00 Test Item Value Reference Range Interpretation Comments HEMOGLOBIN A1c (test code = 62398) 6.0 % THYROID II PROFILE (T3U, T4, T7, TSH)[id number] 00:00:00 Test Item Value Reference Range Interpretation Comments T3 UPTAKE (test code = 2817) 26.3 % T4 (THYROXINE) (test code = 2819) 10.1 UG/DL CALCULATED T7 (FTI) (test code = 2.66 2820) TSH (test code = 2821) 1.7 UIU/ML CBC W/AUTO [id number] 00:00:00 Test Item Value Reference Range Interpretation [...] code = 1015) 418 K/UL CBC W/AUTO [id number] 00:00:00 Test Item Value Reference Range Interpretation [...] (test code = 1015) 418 K/UL HEMOGLOBIN [id number] 00:00:00 Test Item Value Reference Range Interpretation Comments HEMOGLOBIN A1c (test code = 57166) 6.0 % HEMOGLOBIN [id number] 00:00:00 Test Item Value Reference Range Interpretation Comments HEMOGLOBIN A1c (test code = 21637) 6.0 % THYROID II PROFILE (T3U, T4, T7, TSH)2015-04-16 00:00:00 Test Item Value Reference Range Interpretation Comments T3 UPTAKE (test code = 2817) 26.3 % T4 (THYROXINE) (test code = 2819) 10.1 UG/DL CALCULATED T7 (FTI) (test code = 2.66 9130) TSH (test code = 2821) 1.7 UIU/ML
[2023-03-14] MEDS ORDERED: MECLIZINE HCL 12.5 MG TAB ONE (17:49)
[2023-03-14] MEDS ORDERED: ONDANSETRON 4 MG/2 ML VIAL ONE ×3 (17:49→20:09)
[2023-03-14] MEDS ORDERED: NA CHLORIDE 0.9% 1,000 ML ONE (17:49)
[2023-03-14 17:54] LABS: Hematocrit 42.3 % (36.0-45.0); Lymphocytes % 19.8 % (15.3-44.8); MCV 86.8 fL (80-100); MPV 9.2 fL (7.6-11.3); Platelets 378 thou/uL (152-406); RBC Red Blood Cell Count 4.87 M/uL (3.86-4.86)
[2023-03-14] MEDS ORDERED: ACETAMINOPHEN 500 MG TAB ONE ×2 (18:31→18:55)
[2023-03-14 19:57] LABS: ALT/SGPT 18 U/L (13-56); AST/SGOT 15 U/L (15-37); Albumin 3.2 g/dL (3.4-5.0); Alkaline Phosphatase 99 U/L (45-117); BUN Blood Urea Nitrogen 16 mg/dL (7-18); Bicarbonate 28 mEq/L (21-32); Bilirubin Total 0.4 mg/dL (0.2-1.0); Glomerular Filtration Rate 93 ml/min (=/>90); Glucose Level 112 mg/dL (74-106); Magnesium 2.1 mg/dL (1.6-2.4); Potassium 3.9 mEq/L (3.5-5.1); Protein, Total 7.8 g/dL (6.4-8.2); Sodium Level 137 mEq/L (136-145); Troponin High Sensitivity 6.4 pg/mL (<58.9)
[2023-03-14 19:57] LABS: Blood Morphology Comment NOT SEEN (NOT SEEN); Platelet Estimate ADEQ; White Blood Cell Scan OK (OK)
[2023-03-14 20:00] LABS: Bilirubin Direct < 0.1 mg/dL (0-0.2); Bilirubin Indirect, Calculated ND mg/dL (0.2-0.8)
[2023-03-14 20:55] LABS: Specific Gravity 1.009 (1.005-1.030); Urine Bacteria None Seen /HPF (<20); Urine Bilirubin NEGATIVE (Negative); Urine Blood Trace (Negative); Urine Clarity Clear (Clear); Urine Color Colorless (Yellow); Urine Glucose NEGATIVE (Negative); Urine Protein NEGATIVE (Negative); Urine RBC <5 /HPF (None Seen); Urine Urobilinogen Normal (Normal); Urine pH 6.5 (5.0-7.0)
--- NOTE | 2023-03-14 21:46 | EDPHYS ---
Physician Documentation [facility] Name: Danisha Dobbs Age: 67 yrs Sex: Female : 1955 Arrival Date: 03/14/2023 Time: 16:49 Bed 5 Private MD: ED Physician Jarrett Penaloza HPI: 03/14 23:47 This 67 yrs old Female presents to ER via Ambulatory with complaints of kb Nausea, Vomiting. 23:49 The patient presents with dizziness. Onset: The symptoms/episode began/occurred kb yesterday. Context: occurred at home, occurred while the patient was lying down. Modifying factors: The symptoms are alleviated by nothing, the symptoms are aggravated by movement of head, standing up, changing position. Associated signs and symptoms: Pertinent positives: headache, nausea, vomiting. Severity of symptoms: At their worst the symptoms were moderate in the emergency department the symptoms are unchanged. Patient's baseline: Neuro: alert and fully oriented, Motor: no deficits, Ambulation: walks without assistance, Speech: normal. The patient has not experienced similar symptoms in the past. The patient has not recently seen a physician. Patient is a 67-year-old female who presents for dizziness that started last night followed by nausea and vomiting. States symptoms have continued today and now she has a headache. Reports dizziness is worse with movement of head and changing positions.. Historical: - Allergies: 17:05 Codeine; cm10 - PMHx: 17:05 Hypercholesterolemia; cm10 - Immunization history:: Adult Immunizations unknown. - Social history:: Smoking status: Patient denies any tobacco usage or history of. ROS: 23:47 Constitutional: Negative for fever, chills, and weight loss, kb 23:47 Abdomen/GI: Positive for nausea and vomiting, 23:47 Neuro: Positive for dizziness, headache, 23:47 All other systems are negative, Exam: 23:47 Constitutional: This is a well developed, well nourished patient who is awake, alert, kb and in no acute distress. Head/Face: Normocephalic, atraumatic. Eyes: Pupils equal round and reactive to light, extra-ocular motions intact. Lids and lashes normal. Conjunctiva and sclera are non-icteric and not injected. Cornea within normal limits. Periorbital areas with no swelling, redness, or edema. ENT: Moist Mucous membranes Cardiovascular: Regular rate Respiratory: Respirations even and unlabored. No increased work of breathing. Talking in full sentences Abdomen/GI: Soft, non-tender. No distention Skin: Warm, dry with normal turgor. Normal color. MS/ Extremity: Pulses equal, no cyanosis. Neurovascular intact. Full, normal range of motion. Neuro: Awake and alert, GCS 15, oriented to person, place, time, and situation. Moves all extremities. Normal gait. Vital Signs: 17:02 BP 126 / 70; Pulse 74; Resp 18; Temp 97.3; Pulse Ox 98% on R/A; Weight 90.72 kg; Pain cm10 9/10; 19:30 BP 142 / 117 Supine; Pulse 69; km8 19:35 BP 159 / 92 Sitting; Pulse 71; km8 19:40 BP 151 / 91 Standing; Pulse 71; km8 20:00 BP 140 / 70; Pulse 68; Resp 16; Pulse Ox 98% on R/A; km8 21:00 BP 131 / 64; Pulse 65; Resp 16; Pulse Ox 98% on R/A; km8 22:00 BP 128 / 77; Pulse 60; Resp 16; Pulse Ox 99% on R/A; km8 17:02 Pain Scale: Adult cm10 [place] Coma Score: 19:48 Eye Response: spontaneous(4). Motor Response: obeys commands(6). Verbal Response: km8 oriented(5). Total: 15. MDM: 16:55 Patient medically screened. kb 23:47 Data reviewed: vital signs, nurses notes. kb 23:47 Differential diagnosis: generalized weakness, hypovolemia, idiopathic dizziness, kb vertigo. Counseling: I had a detailed discussion with the patient and/or guardian regarding the historical points, exam findings, and any diagnostic results supporting the discharge/admit diagnosis, lab results, the need for outpatient follow up, a family practitioner, to return to the emergency department if symptoms worsen or persist or if there are any questions or concerns that arise at home. Response to treatment: the patient's symptoms have markedly improved after treatment. 23:48 ED course: discussed diagnostic results with patient and she then requested a COVID and kb flu test, reporting nasal congestion for 3 days. COVID and flu test negative, patient feeling better, discharged home. Ambulated out of ED with steady gait.. 03/14 17:05 Order name: Basic Metabolic Panel; Complete Time: 20:10 kb 03/14 17:05 Order name: CBC with Diff; Complete Time: 20:10 kb 03/14 17:05 Order name: Hepatic Function; Complete Time: 20:10 kb 03/14 17:05 Order name: Magnesium; Complete Time: 20:10 kb 03/14 17:05 Order name: Protime (+inr); Complete Time: 17:50 kb 03/14 17:05 Order name: Ptt, Activated; Complete Time: 17:50 kb 03/14 17:05 Order name: Troponin High Sensitivity; Complete Time: 20:10 kb 03/14 17:05 Order name: Urinalysis w/ reflexes; Complete Time: 20:56 kb 03/14 19:58 Order name: CBC Smear Scan; Complete Time: 20:10 EDMS 03/14 20:29 Order name: Flu; Complete Time: 21:41 kb 03/14 20:29 Order name: COVID-19 SARS RT PCR; Complete Time: 21:41 kb 03/14 17:05 Order name: EKG; Complete Time: 17:06 kb 03/14 17:05 Order name: Cardiac monitoring; Complete Time: 18:13 kb 03/14 17:05 Order name: EKG - Nurse/Tech; Complete Time: 18:13 kb 03/14 17:05 Order name: IV Saline Lock; Complete Time: 18:13 kb 03/14 17:05 Order name: Labs collected and sent; Complete Time: 18:13 kb 03/14 17:05 Order name: NPO; Complete Time: 18:13 kb 03/14 17:05 Order name: O2 Per Protocol; Complete Time: 18:13 kb 03/14 17:05 Order name: O2 Sat Monitoring; Complete Time: 18:13 kb 03/14 17:05 Order name: Orthostatics; Complete Time: 19:51 kb 03/14 17:50 Order name: Labs - recollect needed: recollect light green; Complete Time: 18:51 bd Administered Medications: 17:50 Drug: Meclizine PO 25 mg PO once Route: PO; rs5 19:51 Follow up: Response: No adverse reaction km8 17:50 Drug: Ondansetron IVP 4 mg IVP once; over 2 minutes Route: IVP; Site: left antecubital; rs5 19:51 Follow up: Response: No adverse reaction km8 17:55 Drug: NS 0.9% IV 1000 ml IV at 1000 ml once Route: IV; Rate: 1000 ml; Site: left rs5 antecubital; 20:12 Follow up: IV Status: Completed infusion; IV Intake: 1000ml km8 18:51 Drug: Acetaminophen PO 1000 mg PO once Route: PO; kc6 19:51 Follow up: Response: No adverse reaction km8 20:12 Drug: Ondansetron IVP 4 mg IVP once; over 2 minutes Route: IVP; Site: left antecubital; km8 22:24 Follow up: Response: No adverse reaction km8 22:29 Drug: Promethazine PO 25 mg PO once Route: PO; km8 22:32 Follow up: Response: No adverse reaction km8 Disposition Summary: 03/14/23 21:45 Discharge Ordered Notes: Location: Home kb Condition: Stable kb Diagnosis - Dizziness and giddiness kb Followup: kb - With: Emergency Department - When: As needed - Reason: Worsening of condition Followup: kb - With: Private Physician - When: 2 - 3 days - Reason: Recheck today's complaints, Continuance of care, Re-evaluation by your physician Discharge Instructions: - Discharge Summary Sheet kb - Vertigo, [id number]-[id number] kb Forms: - Medication Reconciliation Form kb - Thank You Letter kb - Antibiotic Education kb - Prescription Opioid Use kb - Patient Portal Instructions kb - Leadership Thank You Letter kb Prescriptions: - ondansetron 4 mg Oral Tablet,disintegrating - take 1 tablet ORAL route every 6 hours As needed; 12 tablet; Refills: 0, kb Product Selection Permitted - Meclizine 25 mg Oral Tablet - take 1 tablet ORAL route every 8 hours As needed; 30 tablet; Refills: 0, kb Product Selection Permitted - Jodi-D 12 Hour 60-120 mg Oral Tablet Sustained Release 12 hr - take 1 tablet ORAL route every 12 hours As needed; 20 tablet; Refills: 0, kb Product Selection Permitted Addendum: 03/18/2023 07:57 I was immediately available for consultation during this patient's visit. I did not e c2 personally see the patient or guide the patient's care. . Signatures: Dispatcher [employer] Mary Mesa, DANNI-C MOLD BREAKER-Ckb Anna Harry Kaitlyn, RN RN kc6 Rony Pro, RN RN rs5 Maral Rausch, RN RN cm10 Jarrett Penaloza MD MD ec2 Ericka Brooks, RN RN km8
--- NOTE | 2023-03-14 21:46 | ER ---
Nurse's Notes [facility] Name: Danisha Dobbs Age: 67 yrs Sex: Female : 1955 Arrival Date: 03/14/2023 Time: 16:49 Bed 5 Private MD: Diagnosis: Dizziness and giddiness Presentation: 03/14 17:02 Chief complaint: Patient states: headache, nausea and dizziness onset last night. Pt cm10 states that when she moves her head the dizziness gets worse. Coronavirus screen: Vaccine status: Patient reports receiving the 2nd dose of the covid vaccine. Client denies travel out of the [place] in the last 14 days. Ebola Screen: Patient denies travel to an Ebola-affected area in the 21 days before illness onset. No symptoms or risks identified at this time. Initial Sepsis Screen: Does the patient meet any 2 criteria? No. Patient's initial sepsis screen is negative. Does the patient have a suspected source of infection? No. Patient's initial sepsis screen is negative. Risk Assessment: Do you want to hurt yourself or someone else? Patient reports no desire to harm self or others. Onset of symptoms was March 14, 2023. 17:02 Method Of Arrival: Ambulatory cm10 17:02 Acuity: KIRAN 3 cm10 Historical: - Allergies: 17:05 Codeine; cm10 - PMHx: 17:05 Hypercholesterolemia; cm10 - Immunization history:: Adult Immunizations unknown. - Social history:: Smoking status: Patient denies any tobacco usage or history of. Screenin:[facility] ED Fall Risk Assessment (Adult) History of falling in the last 3 months, km8 including since admission No falls in past 3 months (0 pts) Confusion or Disorientation No (0 pts) Intoxicated or Sedated No (0 pts) Impaired Gait No (0 pts) Mobility Assist Device Used No (0 pt) Altered Elimination No (0 pt) Score/Fall Risk Level 0 - 2 = Low Risk Oriented to surroundings, Maintained a safe environment, Educated pt \T\ family on fall prevention, incl call for assistance when getting out of bed, Assessed \T\ reinforced patient's understanding of fall precautions. Abuse screen: Denies threats or abuse. Denies injuries from another. Nutritional screening: No deficits noted. Tuberculosis screening: No symptoms or risk factors identified. Assessment: 19:48 General: Appears in no apparent distress. Behavior is calm, cooperative, appropriate km8 for age. Pain: Denies pain. Neuro: Bryan Agitation-Sedation Scale (RASS): 0 - Alert and Calm Level of Consciousness is awake, alert, obeys commands, Oriented to person, place, time, situation, Denies dizziness. Cardiovascular: Denies chest pain, shortness of breath, Capillary refill < 3 seconds Patient's skin is warm and dry. Respiratory: Airway is patent Respiratory effort is even, unlabored, Respiratory pattern is regular, symmetrical. GI: Abdomen is non-distended, Reports nausea, vomiting. : No signs and/or symptoms were reported regarding the genitourinary system. EENT: No signs and/or symptoms were reported regarding the EENT system. Derm: No signs and/or symptoms reported regarding the dermatologic system. Skin is intact, Skin is dry, Skin is normal, Skin temperature is warm. Musculoskeletal: No signs and/or symptoms reported regarding the musculoskeletal system. Range of motion: intact in all extremities. 21:04 Reassessment: Patient appears in no apparent distress at this time. No changes from km8 previously documented assessment. Patient and/or family updated on plan of care and expected duration. Pain level reassessed. Patient is alert, oriented x 3, equal unlabored respirations, skin warm/dry/pink. 22:30 Reassessment: Patient appears in no apparent distress at this time. No changes from km8 previously documented assessment. Patient and/or family updated on plan of care and expected duration. Pain level reassessed. Patient is alert, oriented x 3, equal unlabored respirations, skin warm/dry/pink. Vital Signs: 17:02 BP 126 / 70; Pulse 74; Resp 18; Temp 97.3; Pulse Ox 98% on R/A; Weight 90.72 kg; Pain cm10 9/10; 19:30 BP 142 / 117 Supine; Pulse 69; km8 19:35 BP 159 / 92 Sitting; Pulse 71; km8 19:40 BP 151 / 91 Standing; Pulse 71; km8 20:00 BP 140 / 70; Pulse 68; Resp 16; Pulse Ox 98% on R/A; km8 21:00 BP 131 / 64; Pulse 65; Resp 16; Pulse Ox 98% on R/A; km8 22:00 BP 128 / 77; Pulse 60; Resp 16; Pulse Ox 99% on R/A; km8 17:02 Pain Scale: Adult cm10 [place] Coma Score: 19:48 Eye Response: spontaneous(4). Motor Response: obeys commands(6). Verbal Response: km8 oriented(5). Total: 15. ED Course: 16:50 Patient arrived in ED. rg4 16:55 [facility]aran[facility]C [facility]. kb 16:55 Jarrett Penaloza MD is Attending Physician. kb 17:05 Triage completed. cm10 17:05 Arm band placed on Patient placed in an exam room, on a stretcher. cm10 17:30 Inserted saline lock: 20 gauge in left antecubital area, using aseptic technique. Blood rs5 collected. 18:10 Rony Pro, RN is Primary Nurse. rs5 19:48 Patient has correct armband on for positive identification. Bed in low position. Call km8 light in reach. Side rails up X 1. Client placed on continuous cardiac and pulse oximetry monitoring. NIBP monitoring applied. personnel monitor on. Door closed. Noise minimized. 19:48 Patient maintains SpO2 saturation greater than 95% on room air. km8 22:30 No provider procedures requiring assistance completed. IV discontinued, intact, km8 bleeding controlled, No redness/swelling at site. Pressure dressing applied. 22:31 Provided Education on: d/c teaching. km8 Administered Medications: 17:50 Drug: Meclizine PO 25 mg PO once Route: PO; rs5 19:51 Follow up: Response: No adverse reaction km8 17:50 Drug: Ondansetron IVP 4 mg IVP once; over 2 minutes Route: IVP; Site: left antecubital; rs5 19:51 Follow up: Response: No adverse reaction km8 17:55 Drug: NS 0.9% IV 1000 ml IV at 1000 ml once Route: IV; Rate: 1000 ml; Site: left rs5 antecubital; 20:12 Follow up: IV Status: Completed infusion; IV Intake: 1000ml km8 18:51 Drug: Acetaminophen PO 1000 mg PO once Route: PO; kc6 19:51 Follow up: Response: No adverse reaction km8 20:12 Drug: Ondansetron IVP 4 mg IVP once; over 2 minutes Route: IVP; Site: left antecubital; km8 22:24 Follow up: Response: No adverse reaction km8 22:29 Drug: Promethazine PO 25 mg PO once Route: PO; km8 22:32 Follow up: Response: No adverse reaction km8 Medication: 22:31 VIS not applicable for this client. km8 Intake: 20:12 IV: 1000ml; Total: 1000ml. km8 Outcome: 21:45 Discharge ordered by MD. joshua 22:31 Discharged to home ambulatory, with friend, km8 22:31 Condition: good 22:31 Discharge instructions given to patient, friend, Instructed on discharge instructions, follow up and referral plans. medication usage, Demonstrated understanding of instructions, follow-up care, medications, Prescriptions given X 3, 22:32 Patient left the ED. km8 Signatures: Mary Naranjo, KAYLEIGH RAZO-Monik Rodriguez4 Kyara Wood RN RN kc6 Rony Pro RN RN rs5 Maral Rausch, RN RN cm10 Ericka Brooks RN RN km8
[2023-03-14] MEDS ORDERED: PROMETHAZINE 25 MG TABLET ONE (22:41)
[2023-03-14 23:04] VITALS: TEMP 97.3
[2023-03-14 23:14] VITALS: BP 128/77; O2SAT 99
--- NOTE | 2023-03-18 14:25 | EKG ---
Test Date: 2023-03-14 Test Time: 18:42:42 Manager Private: JOANA MEASUREMENT RESULTS: Intervals: Rate: 68 [place]: 138 QRSD: 84 QT: 420 QTc: 446 [place]: P: 24 [place]: 138 QRS: 4 T: 4 INTERPRETIVE STATEMENTS: Normal sinus rhythm Normal ECG Compared to ECG 11/17/2022 15:33:36 T-wave abnormality no longer present Electronically Signed On 03-18-23 14:14:10 [employer] SUPERINTENDENT by Jonnie Melendrez
== END 2023-03-14 22:32 | disposition home or self-care (01) ==
LOC: ER 16:49
DX: R42 Dizziness and giddiness (principal); R11.2 Nausea with vomiting, unspecified; E78.00 Pure hypercholesterolemia, unspecified; Z11.52 Encounter for screening for COVID-19; Z88.5 Allergy status to narcotic agent
CPT/HCPCS: 96361; 93005; 85025; 81001; 80048; 36415; 83735; 85610; 80076; 85730; 84484; 87635; 87804 ×2; 96374; 99285; Q0169; J8597; J2405 ×3; J7030